=== PATIENT | female | born 1950 | race Caucasian/White ===

== ENCOUNTER 2020-11-14 16:58 | Inpatient (IN) | payer MEDICARE, OTHER, SELFPAY ==
[2020-11-14] VITALS (13 sets, daily range): BP systolic 134–165; BP diastolic 60–88; PULSE 67–91; RESP 10–34; TEMP 36.3–38.5; O2SAT 84–97; BMI 25.4; BMI 23.8
--- NOTE | 2020-11-14 17:09 | EKG12_ITS ---
Test Reason : FEVER Blood Pressure : / mmHG Vent. Rate : 083 BPM Atrial Rate : 083 BPM P-R Int : 144 ms QRS Dur : 088 ms QT Int : 370 ms P-R-T Axes : 065 -63 -01 degrees QTc Int : 434 ms Sinus rhythm with Premature atrial complexes Possible Left atrial enlargement Left anterior fascicular block Nonspecific T wave abnormality Poor R wave progression Abnormal ECG Confirmed by REMI YEUNG, LEONARDO ([id number]), advertising editor DARREN ROBERTO ([id number]) on 11/16/2020 9:43:34 AM Referred By: FRANCISCO Confirmed By:LEONARDO KHALIL MD
--- NOTE | 2020-11-14 17:12 | EX.ED.DYSGE1 ---
HPI History of Present Illness Chief Complaint: Fever Narrative Narrative: Patient presented with 2-week history of weakness, some dyspnea, she had a fever today. She has no nausea vomiting or diarrhea, she has no rash. She does not have neck pain or stiffness. She has no headache or vision changes. She has no dysuria or hematuria. She has no abdominal pain. [facility] PFS Home Medications NK 11/14/20 [History Last Taken Unknown] Allergy/AdvReac Type Severity Reaction Status Date / Time sulfamethoxazole Allergy Angioedema Verified 11/14/20 17:02 [From Bactrim] trimethoprim [From Bactrim] Allergy Angioedema Verified 11/14/20 17:02 Surgical History (Updated 11/14/20 @ 17:21 by Nimo Molina) History of appendectomy Social History Smoking Status: Never smoker ROS ROS ED ROS Narrative Past medical history: None Medications: None Social history: Noncontributory Review of systems: All systems negative except as indicated General: Fever as in HPI. Generalized weakness Eyes: No visual changes ENT: No upper airway congestion, normal voice Neck: No neck pain Cardiovascular: No chest pain Respiratory: Some shortness of breath Gastrointestinal: No abdominal pain, nausea vomiting or diarrhea Genitourinary: No dysuria Musculoskeletal: Denies myalgias no difficulty with ambulation Skin: No rash Neurological: No memory loss, confusion or any focal weakness Psych: No recent behavioral changes Hematologic: No easy bleeding or easy bruising EXAM Physical Exam Narrative Exam Narrative: Physical exam General: Patient appears healthy for her age, she does not appear in significant distress Head: Normocephalic, Atraumatic Eyes: Conjunctiva not pale ENT: Moist mucous membranes Neck: Supple, Nontender, No lymphadenopathy Cardiovascular: Regular rate, Regular rhythm Respiratory: No distress, CTA bilaterally Abdomen: Soft, Nontender, Nondistended Back: Nontender, Normal Inspection. Negative for: CVA tenderness Extremities: Nontender, No edema Skin: Normal color, No rash Neurological: Alert, Normal Strength, Normal Sensation Psychological: Normal affect Const Vital Signs: 11/14/20 16:59 11/14/20 17:21 11/14/20 18:14 Temperature 101.3 F H 99.6 F H 99.8 F H Temperature Source Temporal Oral Oral Pulse Rate 91 82 72 Respiratory Rate 18 26 H 31 H Respiratory Effort Normal Non-Labored Respiratory Pattern Normal Blood Pressure 145/88 H 146/75 H 136/70 H Blood Pressure Mean 107 98 92 Pulse Ox 91 84 97 Oxygen Delivery Method Room Air Room Air Room Air Oxygen Flow Rate (L/min) 2 11/14/20 19:00 Temperature 99.9 F H Temperature Source Oral Pulse Rate 75 Respiratory Rate 26 H Respiratory Effort Respiratory Pattern Blood Pressure 156/78 H Blood Pressure Mean 104 Pulse Ox 96 Oxygen Delivery Method Nasal Cannula Oxygen Flow Rate (L/min) 2 MDM MDM MDM Narrative Medical decision making narrative: Patient signs and symptoms are consistent with Covid however her rapid antigen was negative, I will add a confirmatory test. Her CT is consistent with bilateral infiltrates which is likely Covid pneumonia. Since the first Covid was negative I will start Rocephin and azithromycin. Patient will be admitted to the hospital. Lab Data Labs: Laboratory Results - last 24 hr 11/14/20 11/14/20 11/14/20 17:20 17:20 17:20 WBC RBC Hgb Hct MCV MCH MCHC RDW Std Deviation RDW Coeff of Alex Plt Count MPV Immature Gran % (Auto) Neut % (Auto) Lymph % (Auto) [place] % (Auto) Eos % (Auto) Baso % (Auto) Absolute Neuts (auto) Absolute Lymphs (auto) Nucleated RBC % Fibrinogen 684 H Sodium 138 Potassium 2.8 L Chloride 100 Carbon Dioxide 32.0 Anion Gap 6 BUN 9 Creatinine 0.74 Estim Creat Clear Calc 48.30 Est GFR (MDRD) Af Amer 100 Est GFR (MDRD) Non-Af 82 BUN/Creatinine Ratio 12.2 Glucose 131 H Lactic Acid Calcium 8.5 Total Bilirubin 0.90 AST 36 ALT 25 Alkaline Phosphatase 64 C-React Prot Ext Range 68.20 H Total Protein 7.3 Albumin 3.1 L Globulin 4.2 Albumin/Globulin Ratio 0.7 L Procalcitonin 0.05 11/14/20 11/14/20 17:20 17:20 WBC 3.3 L RBC 5.11 Hgb 14.9 Hct 43.3 MCV 84.7 MCH 29.2 MCHC 34.4 RDW Std Deviation 39.0 RDW Coeff of Alex 12.6 Plt Count 196 MPV 9.7 Immature Gran % (Auto) 0.600 Neut % (Auto) 71.2 H Lymph % (Auto) 18.7 L [place] % (Auto) 9.5 Eos % (Auto) 0.0 Baso % (Auto) 0.0 Absolute Neuts (auto) 2.3 Absolute Lymphs (auto) 0.61 L Nucleated RBC % 0 Fibrinogen Sodium Potassium Chloride Carbon Dioxide Anion Gap BUN Creatinine Estim Creat Clear Calc Est GFR (MDRD) Af Amer Est GFR (MDRD) Non-Af BUN/Creatinine Ratio Glucose Lactic Acid 1.2 Calcium Total Bilirubin AST ALT Alkaline Phosphatase C-React Prot Ext Range Total Protein Albumin Globulin Albumin/Globulin Ratio Procalcitonin Radiography Diagnostic Testing: Radiology Impression Chest X-Ray 11/14/20 17:42 IMPRESSION: Bilateral pneumonia. Electronically Signed: Flo Lucia MD at 18:17 EDT Tel , Service support , Chest CTA 11/14/20 18:32 IMPRESSION: Negative CTA Chest. Bilateral airspace disease consistent with infection including atypical or viral pneumonia. Individualized dose optimization techniques were used for this CT. at 1929 Reported and signed by: Dev Delgado MD Electronically Signed: Dev Delgado MD at 19:28 EDT Tel , Service support , Discharge Plan Triage Chief Complaint: Fever ED Provider: Cornelio Malone Dx/Rx/DC Orders Clinical Impression: Hypoxia, Pneumonia Prescriptions: No Action NK RF: 0 Primary Care Provider: Care Physician,No Primary Referrals: Care Physician,No Primary [Primary Care Provider] - Disposition Disposition: Acute Care Hospital [facility]
[2020-11-14 17:42] LABS: Absolute Lymphocyte Count 0.61 X10^3/uL (0.83-4.51); Absolute Neutrophil Count 2.3 X10^3/uL (2.0-7.7); Hematocrit 43.3 % (37-47); Hemoglobin 14.9 g/dL (12.0-15.0); Lymphocyte # 0.61 X10^3/ul (0.83-4.51); Lymphocyte % 18.7 % (19-41); Mean Corp Hgb Conc 34.4 g/dL (32-36); Mean Corpuscular Hgb 29.2 pg (27.0-32.0); Mean Corpuscular Volume 84.7 fL (81-99); Mean Platelet Vol. 9.7 fl (6.2-12.0); Monocyte# 0.31 X10^3/uL; Monocyte% 9.5 % (0-10); NRBC Flagged by Analyzer 0 % (0-5); Neutrophil # 2.32 X10^3/uL (2.7-7.7); Neutrophil % 71.2 % (47-70); Platelet Count 196 K/mm3 (150-450); RBC Distribution Width CV 12.6 % (11.6-14.6); Red Blood Count 5.11 M/mm3 (4.2-5.4); White Blood Count 3.3 K/mm3 (4.4-11.0)
--- NOTE | 2020-11-14 17:42 | RAD_ITS ---
STUDY: X-RAY CHEST REASON FOR EXAM: Female, 70 years old. cough, sob, fatigue, fever, states unable to do ADLS x 1 week. TECHNIQUE: Single AP portable view of the chest. COMPARISON: None. FINDINGS: Patchy alveolar opacities in both lungs consistent with bilateral pneumonia. There is no demonstrated pleural abnormality. Normal size heart. Normal mediastinum and grant. Normal visualized pulmonary arteries. Normal visualized aortic arch and descending thoracic aorta. Normal visualized thoracic spine. Normal visualized ribs, clavicles, and shoulders. There is no demonstrated abnormality of the visualized soft tissue structures of the upper abdomen. RAD/Chest 1 View (Portable) IMPRESSION: Bilateral pneumonia. Electronically Signed: Flo Lucia MD at 18:17 EDT Tel , Service support ,
[2020-11-14 17:54] LABS: Fibrinogen 684 mg/dl (203-444)
[2020-11-14 18:14] LABS: Lactic Acid 1.2 mmol/L (0.4-1.9)
[2020-11-14 18:15] LABS: ALB/GLOB Ratio 0.7 RATIO (0.9-2.4); AST(SGOT) 36 U/L (15-37); Alanine Aminotransfer ALT/SGPT 25 U/L (13-56); Albumin, Serum 3.1 g/dL (3.2-5.0); Alkaline Phosphatase 64 U/L (45-117); Anion Gap 6 (5-15); BUN 9 mg/dL (7-18); BUN/Creat Ratio 12.2 RATIO (10-20); Calcium,Total 8.5 mg/dL (8.5-10.1); Chloride 100 mmol/L (98-107); Creatinine, Serum 0.74 mg/dL (0.55-1.02); EST Glomerular Filtration Rate 82 mL/min (>60); Est Glom Filt Rate - Afr Amer 100 mL/min (>60); Globulin 4.2 g/dL (2.2-4.2); Glucose 131 mg/dL (74-106); Potassium 2.8 mmol/L (3.5-5.1); Protein, Total 7.3 g/dL (6.4-8.2); Sodium Level 138 mmol/L (136-145)
[2020-11-14 18:20] LABS: Procalcitonin 0.05 ng/mL (0.00-0.09)
--- NOTE | 2020-11-14 18:32 | CT_ITS ---
HISTORY: Cough, dyspnea and fever EXAMINATION: CTA Chest WO/W Contrast Injection TECHNIQUE: Helically acquired images were obtained of the chest following IV contrast as per pulmonary angiogram protocol with 3D reconstructions. A radiation dose optimization technique was used for this scan. IV Contrast dosage and agent: IV 100mL [id number] COMPARISON: None FINDINGS: LUNGS, PLEURA AND LARGE AIRWAYS: Patchy groundglass opacities in the bilateral upper, right middle and bilateral lower lobes with scattered areas of consolidation. No pleural effusion. No pneumothorax THYROID: No thyroid lesions. PULMONARY ARTERIES: Normal in caliber. No pulmonary embolism. AORTA AND GREAT VESSELS: No aneurysm or dissection. HEART AND PERICARDIUM: Heart size is normal. No pericardial effusion. MEDIASTINUM AND ROLAN: Right hilar adenopathy. Esophagus is unremarkable. No hiatal hernia. UPPER ABDOMEN: No acute pathology. BONES: No acute or aggressive abnormality. CT/CTA Chest W/WO Contrast IMPRESSION: Negative CTA Chest. Bilateral airspace disease consistent with infection including atypical or viral pneumonia. Individualized dose optimization techniques were used for this CT. at 1929 Reported and signed by: Dev Delgado MD Electronically Signed: Dev Delgado MD at 19:28 EDT Tel , Service support ,
[2020-11-14] MEDS: Ceftriaxone 1 GM/50 ML BAG IV (20:10)
--- NOTE | 2020-11-14 20:10 | PCM.HP.STD ---
HPI - General General Date of Admission: 11/14/20 HPI Narrative KIM PRINGLE, is a 70 F who presents with a chief complaint of shortness of breath. Onset of symptoms began 2 weeks ago and has become worse since that time. She and her are both not vaccinated to SARS?2 at this time. She is short of breath, requiring oxygen to maintain her pulse oxygenation greater than 90%. Chest x-ray reveals patchy infiltrate and CRP is markedly elevated at 68 with an increased level of fibrinogen. Rapid Covid 19 testing is negative ,however, her clinical picture is suspect. The patient will be admitted and treated as a Covid 19 patient until further testing confirms or denies that diagnosis. She will also be at treated with broad-spectrum antibiotics. [facility] Home Medications NK 11/14/20 [History Last Taken Unknown] Allergy/AdvReac Type Severity Reaction Status Date / Time sulfamethoxazole Allergy Angioedema Verified 11/14/20 17:02 [From Bactrim] trimethoprim [From Bactrim] Allergy Angioedema Verified 11/14/20 17:02 Surgical History (Updated 11/14/20 @ 17:21 by Nimo Molina) History of appendectomy Social History Smoking Status: Never smoker ROS Constitutional Constitutional: Reports fever(s) and weakness ENT HEENT: Denies abnormal hearing Cardiovascular Cardiovascular: Denies chest pain Respiratory/Chest Respiratory/Chest: Reports cough and shortness of breath at rest Gastrointestinal Gastrointestinal: Denies abdominal pain Genitourinary Genitourinary: Denies dysuria Musculoskeletal Musculoskeletal: Denies back pain Integumentary Integumentary: Denies dry skin Neurologic Neurologic: Denies abnormal gait Psychiatric Psychiatric: Denies anxiety Endocrine Endocrinology: Denies change in body appearance Vital Signs Vital Signs Vital Signs: 11/14/20 16:59 11/14/20 17:21 11/14/20 18:14 Temperature 101.3 F H 99.6 F H 99.8 F H Temperature Source Temporal Oral Oral Pulse Rate 91 82 72 Respiratory Rate 18 26 H 31 H Respiratory Effort Normal Non-Labored Respiratory Pattern Normal Blood Pressure 145/88 H 146/75 H 136/70 H Blood Pressure Mean 107 98 92 Pulse Ox 91 84 97 Oxygen Delivery Method Room Air Room Air Room Air Oxygen Flow Rate (L/min) 2 11/14/20 19:00 Temperature 99.9 F H Temperature Source Oral Pulse Rate 75 Respiratory Rate 26 H Respiratory Effort Respiratory Pattern Blood Pressure 156/78 H Blood Pressure Mean 104 Pulse Ox 96 Oxygen Delivery Method Nasal Cannula Oxygen Flow Rate (L/min) 2 Weight Weight: 158 lb Body Mass Index (BMI) 25.4 Physical Exam Const alert and oriented x3 General Appearance: cooperative HEENT normocephalic and head/scalp atraumatic Eyes PERRL and EOMs intact bilaterally Neck supple Lymph Lymphatic: no lymphadenopathy noted Resp Auscultation: diminished lung sounds Cardio regular rhythm, S1 normal heart sound, S2 normal heart sound, no murmurs, no rub and no gallops GI soft to palpation and non-tender Extremity no clubbing, cyanosis or edema Skin Rashes: no rashes Neuro CN's II-XII intact bilaterally Psych affect normal Appearance: appropriate Lab / Micro Data Result Diagrams: 11/14/20 17:20 11/14/20 17:20 Labs: Laboratory Results - last 24 hr 11/14/20 11/14/20 11/14/20 17:20 17:20 17:20 WBC RBC Hgb Hct MCV MCH MCHC RDW Std Deviation RDW Coeff of Alex Plt Count MPV Immature Gran % (Auto) Neut % (Auto) Lymph % (Auto) [place] % (Auto) Eos % (Auto) Baso % (Auto) Absolute Neuts (auto) Absolute Lymphs (auto) Nucleated RBC % Fibrinogen 684 H Sodium 138 Potassium 2.8 L Chloride 100 Carbon Dioxide 32.0 Anion Gap 6 BUN 9 Creatinine 0.74 Estim Creat Clear Calc 48.30 Est GFR (MDRD) Af Amer 100 Est GFR (MDRD) Non-Af 82 BUN/Creatinine Ratio 12.2 Glucose 131 H Lactic Acid Calcium 8.5 Total Bilirubin 0.90 AST 36 ALT 25 Alkaline Phosphatase 64 C-React Prot Ext Range 68.20 H Total Protein 7.3 Albumin 3.1 L Globulin 4.2 Albumin/Globulin Ratio 0.7 L Procalcitonin 0.05 11/14/20 11/14/20 17:20 17:20 WBC 3.3 L RBC 5.11 Hgb 14.9 Hct 43.3 MCV 84.7 MCH 29.2 MCHC 34.4 RDW Std Deviation 39.0 RDW Coeff of Alex 12.6 Plt Count 196 MPV 9.7 Immature Gran % (Auto) 0.600 Neut % (Auto) 71.2 H Lymph % (Auto) 18.7 L [place] % (Auto) 9.5 Eos % (Auto) 0.0 Baso % (Auto) 0.0 Absolute Neuts (auto) 2.3 Absolute Lymphs (auto) 0.61 L Nucleated RBC % 0 Fibrinogen Sodium Potassium Chloride Carbon Dioxide Anion Gap BUN Creatinine Estim Creat Clear Calc Est GFR (MDRD) Af Amer Est GFR (MDRD) Non-Af BUN/Creatinine Ratio Glucose Lactic Acid 1.2 Calcium Total Bilirubin AST ALT Alkaline Phosphatase C-React Prot Ext Range Total Protein Albumin Globulin Albumin/Globulin Ratio Procalcitonin Micro: Microbiology 11/14/20 17:17 SARS-CoV-2 Antigen (Rapid) - Final Interface Orders Radiology Impression Chest X-Ray 11/14/20 17:42 IMPRESSION: Bilateral pneumonia. Electronically Signed: Flo Lucia MD at 18:17 EDT Tel , Service support , Chest CTA 11/14/20 18:32 IMPRESSION: Negative CTA Chest. Bilateral airspace disease consistent with infection including atypical or viral pneumonia. Individualized dose optimization techniques were used for this CT. at 1929 Reported and signed by: Dev Delgado MD Electronically Signed: Dev Delgado MD at 19:28 EDT Tel , Service support , Assessment & Plan Assessment/Plan (1) Hypoxia: (2) Pneumonia: PLAN: 1. Acute shortness of breath/pneumonia?admit to COVID-19 floor for isolation until further testing can be done. We will treat patient with oxygen support and steroids. She will be also covered with Rocephin and azithromycin in the emergency room, decision to continue further antibiotic therapy can be made tomorrow after further COVID-19 testing has returned. 2. DVT prophylaxis?low molecular weight heparin Strongly encouraged patient to get COVID-19 vaccine 90 days after discharge from hospital Visit Charges Inpatient E&M: 45086 Init Hosp L2
[2020-11-14] MEDS: Potassium Chloride Oral Tablet 20 MEQ 60 MEQ PO (22:03)
[2020-11-15] VITALS (15 sets, daily range): BP systolic 124–160; BP diastolic 54–95; PULSE 59–84; RESP 16–34; TEMP 36.1–37.2; O2SAT 92–96
[2020-11-15 05:08] LABS: Absolute Lymphocyte Count 0.61 X10^3/uL (0.83-4.51); Absolute Neutrophil Count 2.1 X10^3/uL (2.0-7.7); Eosinophil# 0.01 X10^3/uL; Eosinophils% 0.3 % (0-5); Hematocrit 39.4 % (37-47); Hemoglobin 13.3 g/dL (12.0-15.0); Lymphocyte # 0.61 X10^3/ul (0.83-4.51); Lymphocyte % 20.2 % (19-41); Mean Corp Hgb Conc 33.8 g/dL (32-36); Mean Corpuscular Hgb 28.7 pg (27.0-32.0); Mean Corpuscular Volume 84.9 fL (81-99); Mean Platelet Vol. 9.9 fl (6.2-12.0); Monocyte# 0.32 X10^3/uL; Monocyte% 10.6 % (0-10); NRBC Flagged by Analyzer 0 % (0-5); Neutrophil # 2.07 X10^3/uL (2.7-7.7); Neutrophil % 68.6 % (47-70); POSITIVE MORPHOLOGY YES; Platelet Count 190 K/mm3 (150-450); RBC Distribution Width CV 12.6 % (11.6-14.6); Red Blood Count 4.64 M/mm3 (4.2-5.4)
[2020-11-15 05:12] LABS: Differential Indicated SCAN CRITERIA MET
[2020-11-15 05:22] LABS: Anion Gap 5 (5-15); BUN 9 mg/dL (7-18); BUN/Creat Ratio 17.8 RATIO (10-20); Calcium,Total 7.9 mg/dL (8.5-10.1); Chloride 104 mmol/L (98-107); Creatinine, Serum 0.51 mg/dL (0.55-1.02); EST Glomerular Filtration Rate 127 mL/min (>60); Est Glom Filt Rate - Afr Amer 154 mL/min (>60); Glucose 98 mg/dL (74-106); Potassium 3.6 mmol/L (3.5-5.1); Sodium Level 142 mmol/L (136-145)
[2020-11-15 05:43] LABS: Differential Comment SCANNED
[2020-11-15 05:45] LABS: Atypical Lymphocyte RARE %
[2020-11-15 08:09] LABS: D-Dimer Quantitative (DVT/PE) 0.98 FEU/ug/m (0.27-0.49)
[2020-11-15] MEDS: dexAMETHasone 2 MG TABLET 6 MG PO (09:23)
[2020-11-15] MEDS: Enoxaparin 40 MG/0.4 ML Syringe SC (09:23)
--- NOTE | 2020-11-15 10:18 | CASEMGMT ---
RN PANKAJ Assessment: TC to pt for initial transition planning/care coordination assessment due to COVID 19. RN PANKAJ introduced self and role at [facility], pt voices understanding and consents to assessment. Pt seems A/O x4 and answers all questions appropriately at this time. Care providers, pharmacy, and demographics verified/updated. Admitting Dx: suspected COVID 19 PCP: Pt currently does not have a PCP. She states her PCP retired, . She states she is planning on finding another one but wants a female. CM offered to provide MD list. Pt agreeable. CM gave pt nurse Silva the 2020 Healthcare Provider Directory and underlined the female physicians for patient. Specialists: Pt denies having any specialists. Preferred [facility]: [facility] Insurance: [employer] Prescription Benefit: no LW/HPOA: Pt states she does have a LW/DPOA. States her is DPOA, Tomas Lerma. She is aware that it is not on file at [facility] and she may bring in at any time to be scanned to the chart. LNOK: Tomasbobby Lerma, Living Arrangements: Pt lives with in a duplex with her son and daughter in law on the other side. Pt states she and her use the main floor only. Pt is I in ADL's and denies concerns at home. Transportation: Pt drives self and denies issues with transportation. DME/HHC/SNF: Pt denies having any DME in the home, previous HHC or SNF stays. Pt aware that CM will give nurse a list of local DME providers in case she would need O2 on dc. She is aware that her insurance covers all of them and CM will call her back to see who her preferred provider is. List given to Ricardo the nurse. Pt states no concerns with going home at time of dc. Pt states no further concerns/needs. CM to follow. Advised pt to ask CM if any further question/concerns/needs arise, voices understanding. Pt Goal: Home Plan: Home with family support.
--- NOTE | 2020-11-15 11:27 | PN.HOSP_ITS ---
Subjective Subjective breathing well on oxygen. Has been ill for 2 weeks. Her grandchildren were ill with unspecified illness prior to her onset. Objective Data Objective Data Vital Signs: Vital Signs Temp Pulse Resp BP Pulse Ox 37.2 C 77 22 H 140/68 H 92 11/15/20 10:00 11/15/20 10:00 11/15/20 10:00 11/15/20 10:00 11/15/20 10:00 Oxygen Flow Rate (L/min) 2 Oxygen Delivery Method Nasal Cannula Weight: 67 kg Body Mass Index (BMI) 23.8 Intake & Output: Intake and Output for Last 24 Hours 11/13/20 11/14/20 11/15/20 23:59 23:59 23:59 Intake Total 305 / 545 240 / 240 Balance 305 / 545 240 / 240 Lab / Micro Data Attestation: I reviewed the patient's lab results. Result Diagrams: 11/15/20 05:05 11/15/20 05:05 Labs: Laboratory Results - last 24 hr 11/14/20 11/14/20 11/14/20 17:20 17:20 17:20 WBC RBC Hgb Hct MCV MCH MCHC RDW Std Deviation RDW Coeff of Alex Plt Count MPV Immature Gran % (Auto) Neut % (Auto) Lymph % (Auto) [place] % (Auto) Eos % (Auto) Baso % (Auto) Absolute Neuts (auto) Absolute Lymphs (auto) Nucleated RBC % Differential Comment Atypical Lymphocytes Fibrinogen 684 H D-Dimer Quant (PE/DVT) Sodium 138 Potassium 2.8 L Chloride 100 Carbon Dioxide 32.0 Anion Gap 6 BUN 9 Creatinine 0.74 Estim Creat Clear Calc 48.30 Est GFR (MDRD) Af Amer 100 Est GFR (MDRD) Non-Af 82 BUN/Creatinine Ratio 12.2 Glucose 131 H Lactic Acid Calcium 8.5 Total Bilirubin 0.90 AST 36 ALT 25 Alkaline Phosphatase 64 C-React Prot Ext Range 68.20 H Total Protein 7.3 Albumin 3.1 L Globulin 4.2 Albumin/Globulin Ratio 0.7 L Procalcitonin 0.05 COVID-19 ([facility]) 11/14/20 11/14/20 11/14/20 17:20 17:20 20:01 WBC 3.3 L RBC 5.11 Hgb 14.9 Hct 43.3 MCV 84.7 MCH 29.2 MCHC 34.4 RDW Std Deviation 39.0 RDW Coeff of Alex 12.6 Plt Count 196 MPV 9.7 Immature Gran % (Auto) 0.600 Neut % (Auto) 71.2 H Lymph % (Auto) 18.7 L [place] % (Auto) 9.5 Eos % (Auto) 0.0 Baso % (Auto) 0.0 Absolute Neuts (auto) 2.3 Absolute Lymphs (auto) 0.61 L Nucleated RBC % 0 Differential Comment Atypical Lymphocytes Fibrinogen D-Dimer Quant (PE/DVT) Sodium Potassium Chloride Carbon Dioxide Anion Gap BUN Creatinine Estim Creat Clear Calc Est GFR (MDRD) Af Amer Est GFR (MDRD) Non-Af BUN/Creatinine Ratio Glucose Lactic Acid 1.2 Calcium Total Bilirubin AST ALT Alkaline Phosphatase C-React Prot Ext Range Total Protein Albumin Globulin Albumin/Globulin Ratio Procalcitonin COVID-19 ([facility]) Detected 11/15/20 11/15/20 11/15/20 05:05 05:05 05:05 WBC 3.0 L RBC 4.64 Hgb 13.3 Hct 39.4 MCV 84.9 MCH 28.7 MCHC 33.8 RDW Std Deviation 39.0 RDW Coeff of Alex 12.6 Plt Count 190 MPV 9.9 Immature Gran % (Auto) 0.300 Neut % (Auto) 68.6 Lymph % (Auto) 20.2 [place] % (Auto) 10.6 H Eos % (Auto) 0.3 Baso % (Auto) 0.0 Absolute Neuts (auto) 2.1 Absolute Lymphs (auto) 0.61 L Nucleated RBC % 0 Differential Comment SCANNED Atypical Lymphocytes RARE Fibrinogen D-Dimer Quant (PE/DVT) 0.98 H* Sodium 142 Potassium 3.6 Chloride 104 Carbon Dioxide 33.0 H Anion Gap 5 BUN 9 Creatinine 0.51 L Estim Creat Clear Calc 48.30 Est GFR (MDRD) Af Amer 154 Est GFR (MDRD) Non-Af 127 BUN/Creatinine Ratio 17.8 Glucose 98 Lactic Acid Calcium 7.9 L Total Bilirubin AST ALT Alkaline Phosphatase C-React Prot Ext Range Total Protein Albumin Globulin Albumin/Globulin Ratio Procalcitonin COVID-19 ([facility]) Micro: Microbiology 11/14/20 17:17 Interface Orders SARS-CoV-2 Antigen (Rapid) - Final Radiography Diagnostic Testing: Radiology Impression Chest X-Ray 11/14/20 17:42 IMPRESSION: Bilateral pneumonia. Electronically Signed: Flo Lucia MD at 18:17 EDT Tel , Service support , Chest CTA 11/14/20 18:32 IMPRESSION: Negative CTA Chest. Bilateral airspace disease consistent with infection including atypical or viral pneumonia. Individualized dose optimization techniques were used for this CT. at 1929 Reported and signed by: Dev Delgado MD Electronically Signed: Dev Delgado MD at 19:28 EDT Tel , Service support , Physical Exam Const alert and oriented x3 Exam Limitations: no limitations Resp normal respiratory effort and clear to auscultation bilaterally Cardio regular rate, regular rhythm, S1 normal heart sound and S2 normal heart sound GI normal to inspection, nondistended, normoactive bowel sounds, non-tender and non-distended Extremity normal to inspection Assessment & Plan Assessment/Plan (1) COVID-19: (2) Hypoxia: PLAN: 1. Acute COVID-19 pneumonia * Date of onset was roughly 2 weeks ago. Likely contracted from her grandchildren who were sick prior to that. * Patient out of the window for remdesivir * Continue with dexamethasone * Plan is to monitor the patient overnight if she does fairly well then will look at potential discharge 26. Patient will require an amatory pulse ox prior to discharge. * Strongly advised patient to get the COVID-19 vaccination after she is done with quarantine which would be for another week. * Also advised that her family members including her who is at home as well as additional family members who live close by be vaccinated. 2. Acute hypoxic respiratory insufficiency * Secondary to Covid * Ambulatory pulse ox prior to discharge. 3. On VTE prophylaxis with enoxaparin. Improve VTE score is only 1%. Therefore, would not require VTE prophylaxis upon discharge. Visit Charges Inpatient E&M: 57066 Subs Hosp L2
[2020-11-16] VITALS (9 sets, daily range): BP systolic 150–164; BP diastolic 61–90; PULSE 54–83; RESP 20–29; TEMP 36.3–36.7; O2SAT 87–96
[2020-11-16 04:46] LABS: Absolute Lymphocyte Count 0.63 X10^3/uL (0.83-4.51); Absolute Neutrophil Count 1.9 X10^3/uL (2.0-7.7); Basophil# 0.01 X10^3/uL; Basophil% 0.3 % (0-1); Eosinophil# 0.01 X10^3/uL; Eosinophils% 0.3 % (0-5); Hematocrit 42.4 % (37-47); Hemoglobin 13.7 g/dL (12.0-15.0); Lymphocyte # 0.63 X10^3/ul (0.83-4.51); Lymphocyte % 21.7 % (19-41); Mean Corp Hgb Conc 32.3 g/dL (32-36); Mean Corpuscular Hgb 28.2 pg (27.0-32.0); Mean Corpuscular Volume 87.4 fL (81-99); Mean Platelet Vol. 9.9 fl (6.2-12.0); Monocyte# 0.34 X10^3/uL; Monocyte% 11.7 % (0-10); NRBC Flagged by Analyzer 0 % (0-5); Neutrophil # 1.88 X10^3/uL (2.7-7.7); POSITIVE COUNT YES; POSITIVE MORPHOLOGY YES; Platelet Count 223 K/mm3 (150-450); RBC Distribution Width CV 12.3 % (11.6-14.6); RBC Distribution Width SD 39.7 fl (35.1-43.9); Red Blood Count 4.85 M/mm3 (4.2-5.4); White Blood Count 2.9 K/mm3 (4.4-11.0)
[2020-11-16 04:57] LABS: Differential Indicated SCAN CRITERIA MET
[2020-11-16 04:58] LABS: Anion Gap 8 (5-15); BUN 18 mg/dL (7-18); BUN/Creat Ratio 29.4 RATIO (10-20); Calcium,Total 8.6 mg/dL (8.5-10.1); Chloride 105 mmol/L (98-107); Creatinine, Serum 0.61 mg/dL (0.55-1.02); EST Glomerular Filtration Rate 102 mL/min (>60); Est Glom Filt Rate - Afr Amer 124 mL/min (>60); Glucose 128 mg/dL (74-106); Potassium 3.3 mmol/L (3.5-5.1); Sodium Level 143 mmol/L (136-145)
[2020-11-16 05:19] LABS: Differential Comment SCANNED
[2020-11-16 05:22] LABS: Atypical Lymphocyte 1+ %
[2020-11-16] MEDS: Potassium Chloride Oral Tablet 20 MEQ 40 MEQ PO (09:13)
[2020-11-16] MEDS: Enoxaparin 40 MG/0.4 ML Syringe SC (09:14)
[2020-11-16] MEDS: dexAMETHasone 2 MG TABLET 6 MG PO (09:14)
--- NOTE | 2020-11-16 10:28 | CASEMGMT ---
Addendum entered by Nayeli Franks 11/16/20 11:51: TC to [facility], spoke with Lory referral received. O2 tank to be sent over shortly. Original Note: RN PANKAJ made aware that pt will need home O2. TC to pt room. She states she received the DME list and chose [facility] for her provider. [place] [facility] [place] Pt aware O2 will be delivered prior to leaving hospital and concentrator will be delivered to her home once she is home. Pt also received the list of physicians and was appreciative of this. Pt denies further needs.
--- NOTE | 2020-11-16 10:36 | PCM.DC ---
Discharge Instructions Diet Discharge Diet: No restrictions Activity Discharge Activity: Return to Normal Activity Dressing / Incision Call your doctor if you observe: Fever of 101 or Higher and Shortness of breath Follow Up Care Test Results: Test results from this visit will be discussed in further detail at your follow-up appointment, if applicable. Discharge Plan Admission Admit Date/Time: 11/14/20 20:23 Attending Provider: Yan Singh Primary Care Provider: Care Physician,No Primary Instructions Additional Instructions / Restrictions: Self isolate for at least 20 days since symptoms began or the first postive COVID-19 test AND at least one day (24 hours) have passed since resolution of fever without the use of fever-reducing agents AND improvement of symptoms (e.g., cough, shortness of breath) When around people in the same room, wear a face mask. Individuals also in the room should wear a mask. If possible, use a different bathroom and bedroom. Perform adequate hand hygiene. Avoid sharing dishes, glasses, etc. You will require oxygen with activity. Discharge Orders/Prescriptions Prescriptions: New dexamethasone 2 mg Tablet 6 mg PO DAILY@0800 8 Days Qty: 24 RF: 0 Referrals / Follow Up: Care Physician,No Primary [Primary Care Provider] - Disposition Disposition (needs filled in before D/C Order can be placed): Home, self care
--- NOTE | 2020-11-16 10:41 | PCM.DC.SUM ---
Providers Date of Admission: 11/14/20 Primary Care Physician: No Primary Care Phys Reason For Visit: SUSPECTED COVID 19 Diagnosis Discharge Diagnosis (1) COVID-19: Status: Acute Code(s): U07.1 - COVID-19 (2) Hypoxia: Status: Acute Code(s): R09.02 - Hypoxemia Medications at Discharge Home Medications dexamethasone 6 mg PO DAILY@0800 8 Days #24 tab 11/16/20 Hospital Course Operations None Procedures None Summary of Care Provided Minutes Spent on Discharge: 32 Hospital Course: Presents with shortness of breath. Patient been sick for approximately 2 weeks. She was out of the window for remdesivir. Continue dexamethasone for total of 10 days. She ambulated today and pulse ox dropped down to 86%. Therefore, she will require 2 liters of oxygen with activity for the time-being. IMPROVE VTE score 1%, therefore, she will not require VTE prophylaxis upon discharge. Physical Exam Const alert General Appearance: cooperative HEENT normocephalic Resp normal respiratory effort Cardio regular rate, regular rhythm, S1 normal heart sound and S2 normal heart sound GI normal to inspection, nondistended, normoactive bowel sounds, non-tender and non-distended ABG / Lab / Microbiology Data Attestation: I reviewed the patient's lab results. Result Diagrams: 11/16/20 04:30 11/16/20 04:30 Laboratory: Laboratory Results - last 24 hr 11/16/20 11/16/20 04:30 04:30 WBC 2.9 L RBC 4.85 Hgb 13.7 Hct 42.4 MCV 87.4 MCH 28.2 MCHC 32.3 RDW Std Deviation 39.7 RDW Coeff of Alex 12.3 Plt Count 223 MPV 9.9 Immature Gran % (Auto) 1.000 H Neut % (Auto) 65.0 Lymph % (Auto) 21.7 [place] % (Auto) 11.7 H Eos % (Auto) 0.3 Baso % (Auto) 0.3 Absolute Neuts (auto) 1.9 L Absolute Lymphs (auto) 0.63 L Nucleated RBC % 0 Differential Comment SCANNED Atypical Lymphocytes 1+ Sodium 143 Potassium 3.3 L Chloride 105 Carbon Dioxide 30.0 Anion Gap 8 BUN 18 Creatinine 0.61 Estim Creat Clear Calc 48.30 Est GFR (MDRD) Af Amer 124 Est GFR (MDRD) Non-Af 102 BUN/Creatinine Ratio 29.4 H Glucose 128 H Calcium 8.6 Microbiology: Microbiology 11/14/20 17:17 Interface Orders SARS-CoV-2 Antigen (Rapid) - Final D/C Instructions Discharge Diet: No restrictions Discharge Activity: Return to Normal Activity Call your doctor if you observe: Fever of 101 or Higher and Shortness of breath Meaningful Use Info Meaningful Use Diagnoses (Choose all that apply): None applicable Discharge Plan Admission Admit Date/Time: 11/14/20 20:23 Attending Provider: Yan Singh Primary Care Provider: Care Physician,No Primary Instructions Additional Instructions / Restrictions: Self isolate for at least 20 days since symptoms began or the first postive COVID-19 test AND at least one day (24 hours) have passed since resolution of fever without the use of fever-reducing agents AND improvement of symptoms (e.g., cough, shortness of breath) When around people in the same room, wear a face mask. Individuals also in the room should wear a mask. If possible, use a different bathroom and bedroom. Perform adequate hand hygiene. Avoid sharing dishes, glasses, etc. You will require oxygen with activity. Discharge Orders/Prescriptions Prescriptions: New dexamethasone 2 mg Tablet 6 mg PO DAILY@0800 8 Days Qty: 24 RF: 0 Referrals / Follow Up: Care Physician,No Primary [Primary Care Provider] - Disposition Disposition (needs filled in before D/C Order can be placed): Home, self care Visit Charges Inpatient E&M: 94139 Disch Hosp
--- NOTE | 2020-11-17 09:56 | CASEMGMT ---
ROSELYN LIRA Discharge Follow-Up Phone Call. [place]: 5 Strata: 1 Discharge Date: 11/16/20 Adm Dx: Suspected COVID-19 Call to pt to inquire about how she has been doing since being discharged from the hospital. Pt states, It's going well. My breathing is good. She states she did get oxygen set up at home from [employer] yesterday and is using it mostly when getting up/with activity. 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 Inquired if pt has looked over the PCP list provided to her while @ [facility] to get established w/a new PCP. Pt states she has not done this yet, but plans to look it over and discuss it with her . She denies having any questions/concerns/needs. Jackelyn ANTUNEZ RN, CM
== END 2020-11-16 15:15 | disposition home or self-care (01) | DRG 177 ==
LOC: ED 19:59 → ICU 20:30
PROVIDERS: Admitting Provider Family Medicine; Emergency Provider Emergency Medicine
DX: U07.1 COVID-19 (principal); J12.82 Pneumonia due to coronavirus disease 2019; R09.02 Hypoxemia
CPT/HCPCS: 71045; 71275; 80048; 80053; 83605; 84145; 85025; 85379; 85384; 86140; 87040; 87426; 87635; 93005; 99285; J7050; Q9967; A4216; U0002

== ENCOUNTER → 2023-09-03 | Outpatient (CLI) | payer MEDICARE, OTHER, SELFPAY ==
[2023-09-03 17:51] LABS: Bacteria 0 SEEN /hpf (None Seen); Mucous, Urine 0 SEEN /hpf (<or=2+); Red Blood Cells-Urine 0 SEEN /hpf (0-5); Squamous Epithelial Cells - UA 0 SEEN /hpf (5-10)
[2023-09-03 18:42] LABS: Color, Urine Yellow (Yellow); Glucose, Dipstick Normal (Normal); Ketone-Dipstick 5 mg/dl (Negative); Leukocyte Esterase-Dipstick 500 /ul (Negative); Nitrite-Dipstick Negative (Negative); Occult Blood-Urine 25 /ul (Negative); Protein-Dipstick 15 mg/dl (Negative); Urine Bilirubin Dipstick Negative (Negative); Urine Clarity Clear (Clear); Urine Urobilinogen Normal (Normal); Urine pH 6.5 (5.0 - 8.0)
[2023-09-03 18:59] LABS: Calcium Oxalate Crystals Ur RARE /hpf (<or=2+); White Blood Cells 10-25 SEEN /hpf (0-5)
== END | disposition home or self-care (01) ==
LOC: LABSPEC 15:43
PROVIDERS: Referring Provider Physician Assistant; Visit Provider Physician Assistant
DX: R30.0 Dysuria (principal)
CPT/HCPCS: 81001; 87086; 87088; 87186

== ENCOUNTER 2023-09-06 12:34 | Emergency (ER) | payer MEDICARE, OTHER, SELFPAY ==
[2023-09-06] VITALS (41 sets, daily range): BP systolic 112–130; BP diastolic 50–86; PULSE 64–111; RESP 18–38; TEMP 36.1–36.7; O2SAT 90–99; BMI 22.3
[2023-09-06 13:24] LABS: Absolute Lymphocyte Count 0.99 X10^3/uL (0.83-4.51); Absolute Neutrophil Count 8.1 X10^3/uL (2.0-7.7); Basophil# 0.06 X10^3/uL; Basophil% 0.6 % (0-1); Eosinophil# 0.25 X10^3/uL; Eosinophils% 2.5 % (0-5); Hematocrit 31.5 % (37-47); Hemoglobin 10.6 g/dL (12.0-15.0); Lymphocyte # 0.99 X10^3/ul (0.83-4.51); Lymphocyte % 9.8 % (19-41); Mean Corp Hgb Conc 33.7 g/dL (32-36); Mean Corpuscular Hgb 29.6 pg (27.0-32.0); Mean Platelet Vol. 9.6 fl (6.2-12.0); Monocyte# 0.62 X10^3/uL; Monocyte% 6.1 % (0-10); NRBC Flagged by Analyzer 0 % (0-5); Neutrophil # 8.06 X10^3/uL (2.7-7.7); Neutrophil % 79.7 % (47-70); POSITIVE MORPHOLOGY YES; Platelet Count 135 K/mm3 (150-450); RBC Distribution Width CV 13.9 % (11.6-14.6); RBC Distribution Width SD 44.1 fl (35.1-43.9); Red Blood Count 3.58 M/mm3 (4.2-5.4); White Blood Count 10.1 K/mm3 (4.4-11.0)
[2023-09-06 13:26] LABS: Differential Indicated SCAN CRITERIA MET
[2023-09-06 13:37] LABS: Anion Gap 3 (5-15); BUN 21 mg/dL (7-18); BUN/Creat Ratio 21.2 RATIO (10-20); Calcium,Total 10.4 mg/dL (8.5-10.1); Chloride 105 mmol/L (98-107); Creatinine, Serum 0.99 mg/dL (0.55-1.02); EST Glomerular Filtration Rate 58 mL/min (>60); Est Glom Filt Rate - Afr Amer 71 mL/min (>60); Estimated Creatinine Clearance 46.67 ml/min; Glucose 126 mg/dL (74-106); Potassium 3.8 mmol/L (3.5-5.1); Sodium Level 138 mmol/L (136-145); Troponin-I HS 6 pg/mL (3.0-54.0)
[2023-09-06 14:03] LABS: Reactive Lymphocyte RARE
--- NOTE | 2023-09-06 14:18 | RAD_ITS ---
STUDY: X-RAY CHEST REASON FOR EXAM: Female, 73 years old. Weakness TECHNIQUE: Single AP portable view of the chest. COMPARISON: Comparison is made with prior study November 14, 2020. FINDINGS: EKG electrodes are seen. The lungs are clear and expanded. There is no demonstrated pleural abnormality. Normal size heart. Normal mediastinum and grant. Normal visualized pulmonary arteries. There is atherosclerotic tortuosity of the aortic arch and descending thoracic aorta. Normal visualized thoracic spine. Normal visualized ribs, clavicles, and shoulders. There is no demonstrated abnormality of the visualized soft tissue structures of the upper abdomen. RAD/Chest 1 View (Portable) IMPRESSION: No acute abnormality is seen. Electronically Signed: Rich Salgado MD at 14:58 EDT ,
--- NOTE | 2023-09-06 14:28 | ED.RN ---
ambulated patient. Patient maintained 89% the duration of the walk on RA.
[2023-09-06 14:44] LABS: Red Blood Cells-Urine 0 SEEN /hpf (0-5); White Blood Cells 0 SEEN /hpf (0-5)
[2023-09-06 14:49] LABS: Color, Urine Amber (Yellow); Glucose, Dipstick Normal (Normal); Ketone-Dipstick 50 mg/dl (Negative); Leukocyte Esterase-Dipstick 25 /ul (Negative); Nitrite-Dipstick Positive (Negative); Occult Blood-Urine 25 /ul (Negative); Protein-Dipstick 30 mg/dl (Negative); Urine Clarity Sl. Cloudy (Clear); Urine Urobilinogen 4 mg/dl (Normal)
[2023-09-06 14:56] LABS: Urine Bilirubin Dipstick 1 mg/dL (Negative)
[2023-09-06 15:00] LABS: Bacteria 1+ /hpf (None Seen); Calcium Oxalate Crystals Ur 1+ /hpf (<or=2+); Mucous, Urine 1+ /hpf (<or=2+); Squamous Epithelial Cells - UA 0-5 SEEN /hpf (5-10)
--- NOTE | 2023-09-06 17:15 | CT_ITS ---
STUDY: CTA CHEST REASON FOR EXAM: Female, 73 years old. Hypoxia RADIATION DOSAGE (If Supplied By Facility): CTDIvol = ( 4.11 ) mGy, DLP = ( 111.95 ) mGycm TECHNIQUE: The examination was performed with the intravenous administration of IV 100mL Isovue-370. Post-processing of the angiographic images was performed, with multiplanar reformation and 3D reconstruction. Individualized dose optimization techniques were used for this CT. COMPARISON: FINDINGS: Normal enhancement of the main pulmonary artery and right and left pulmonary arteries. Normal enhancement of the bilateral peripheral pulmonary arteries. There is no demonstrated pulmonary embolism. Normal thoracic aorta and visualized great vessels. There is no demonstrated aortic dissection. Normal heart and pericardium. Mild adenopathy in the mediastinum. Normal hilar regions. Normal visualized trachea and bronchi. The lungs are well expanded. Mild right pleural effusion. Mild basilar atelectasis. Normal chest wall structures. Bilateral axillary adenopathy, right more than left. Normal osseous structures. Normal visualized upper abdomen. CT/CTA Chest W/WO Contrast IMPRESSION: No demonstrated pulmonary embolism or arterial dissection. Mediastinal and bilateral axillary adenopathy. Mild right pleural effusion. Mild basilar atelectasis. Electronically Signed: Taco Baker DO at 18:13 EDT Reading Location ID and State: [facility] / [place] Tel [phone], Service support ,
--- NOTE | 2023-09-06 17:34 | EX.ED.DYSGE1 ---
HPI History of Present Illness Chief Complaint: Weakness Narrative Narrative: 73-year-old female presenting generalized weakness urinalysis. She states she recently had hematuria last week and was treated with Macrobid for UTI. She states she did not have any fevers or chills. She does feel generally weak. Patient reported a cough and shortness of breath for several weeks but has not been evaluated for this. She was urgent care previously this week when she had her urine tested and it was noted she was little tachycardic. She had a sinus tachycardia and the urgent care recommended to follow-up with cardiology. Patient was amenable to this. She does not have any chest pain. Other than sedentary lifestyle recently she has not have any DVT/PE risk factors. [facility] Medical History Hypoxia Irregular heart beat SOB (shortness of breath) Home Medications dexamethasone 2 mg tablet 6 mg (3 x 2 mg) PO DAILY@0800 8 days #24 tabs 11/16/20 [Rx Last Taken Unknown] nitrofurantoin monohydrate/macrocrystals 100 mg capsule (Macrobid) 100 mg PO Q12H 5 days #10 caps 09/03/23 [Rx Last Taken Unknown] Allergy/AdvReac Type Severity Reaction Status Date / Time sulfamethoxazole Allergy Angioedema Verified 09/06/23 12:36 [From Bactrim] trimethoprim [From Bactrim] Allergy Angioedema Verified 09/06/23 12:36 Surgical History History of appendectomy Social History Smoking Status: Never smoker ROS ROS ED Constitutional Constitutional ED: Denies chills, fever(s) or sweats Eyes Eyes: Denies blurry vision or change in vision ENT ENT ED: Denies ear pain or sore throat Cardiovascular Cardiovascular: Reports palpitations; Denies chest pain or racing heartbeat Respiratory/Chest Respiratory/Chest: Reports dyspnea and dyspnea on exertion; Denies cough or sputum Gastrointestinal Gastrointestinal: Denies abdominal pain, constipation, diarrhea, nausea or vomiting Genitourinary Genitourinary ED: Reports dysuria and hematuria; Denies urinary frequency Musculoskeletal Musculoskeletal: Denies arthralgias, myalgias or neck pain Integumentary Denies abscess, Abrasions or rash Neurologic Neurologic: Denies headache(s), paresthesias or weakness Psychiatric Psychiatric: Denies anxiety, depression, suicidal ideation or suicidal thoughts Endocrine Endocrinology: Denies polydipsia or polyuria EXAM Physical Exam Const Vital Signs: 09/06/23 12:34 09/06/23 12:41 09/06/23 13:29 Temperature 96.9 F L 96.9 F L Temperature Source Temporal Temporal Pulse Rate 109 H 109 H Respiratory Rate 18 18 Respiratory Effort Normal Non-Labored Respiratory Pattern Normal Blood Pressure 125/86 H 125/86 H Blood Pressure Mean 99 99 Pulse Ox 99 99 Oxygen Delivery Method Room Air Room Air 09/06/23 12:55 09/06/23 15:19 09/06/23 13:37 Temperature 98.1 F Temperature Source Temporal Pulse Rate 64 102 H Respiratory Rate 30 H 36 H Respiratory Effort Respiratory Pattern Blood Pressure 124/66 H Blood Pressure Mean 85 Pulse Ox 94 94 Oxygen Delivery Method Room Air Room Air 09/06/23 13:40 09/06/23 13:45 09/06/23 13:50 Temperature Temperature Source Pulse Rate 103 H 100 105 H Respiratory Rate 32 H 34 H 28 H Respiratory Effort Respiratory Pattern Blood Pressure 122/63 H Blood Pressure Mean 80 Pulse Ox 96 91 92 Oxygen Delivery Method 09/06/23 14:00 09/06/23 14:10 09/06/23 14:15 Temperature Temperature Source Pulse Rate 102 H 105 H 102 H Respiratory Rate 25 H 33 H 31 H Respiratory Effort Respiratory Pattern Blood Pressure 123/66 H 130/64 H Blood Pressure Mean 81 82 Pulse Ox 92 94 93 Oxygen Delivery Method 09/06/23 14:20 09/06/23 15:17 09/06/23 15:20 Temperature Temperature Source Pulse Rate 102 H 102 H 101 H Respiratory Rate 20 H 36 H Respiratory Effort Respiratory Pattern Blood Pressure 130/64 H 124/66 H Blood Pressure Mean 86 83 Pulse Ox 92 93 94 Oxygen Delivery Method 09/06/23 15:30 09/06/23 15:40 09/06/23 15:46 Temperature Temperature Source Pulse Rate 102 H 104 H 105 H Respiratory Rate 29 H 35 H 30 H Respiratory Effort Respiratory Pattern Blood Pressure 118/59 L 126/57 H Blood Pressure Mean 77 77 Pulse Ox 94 92 93 Oxygen Delivery Method 09/06/23 15:50 09/06/23 16:00 03/15/24 16:10 Temperature Temperature Source Pulse Rate 109 H 102 H Respiratory Rate 19 H 28 H Respiratory Effort Respiratory Pattern Blood Pressure 119/66 Blood Pressure Mean 79 Pulse Ox 94 94 Oxygen Delivery Method 09/06/23 16:15 09/06/23 16:20 09/06/23 16:30 Temperature Temperature Source Pulse Rate 104 H 104 H 104 H Respiratory Rate 27 H 38 H 36 H Respiratory Effort Respiratory Pattern Blood Pressure 121/66 H 119/61 Blood Pressure Mean 82 79 Pulse Ox 92 92 91 Oxygen Delivery Method 09/06/23 16:40 09/06/23 16:45 09/06/23 16:50 Temperature Temperature Source Pulse Rate 100 105 H 106 H Respiratory Rate 33 H 35 H 27 H Respiratory Effort Respiratory Pattern Blood Pressure 122/63 H Blood Pressure Mean 80 Pulse Ox 91 90 91 Oxygen Delivery Method 09/06/23 17:00 09/06/23 17:10 09/06/23 17:15 Temperature Temperature Source Pulse Rate 101 H 105 H Respiratory Rate 32 H 33 H Respiratory Effort Respiratory Pattern Blood Pressure 115/63 123/63 H Blood Pressure Mean 78 80 Pulse Ox 91 90 Oxygen Delivery Method 09/06/23 17:20 09/06/23 17:30 09/06/23 17:45 Temperature Temperature Source Pulse Rate 111 H 103 H Respiratory Rate 30 H 35 H Respiratory Effort Respiratory Pattern Blood Pressure 122/59 H 120/51 L Blood Pressure Mean 78 72 Pulse Ox 91 90 Oxygen Delivery Method 09/06/23 17:50 09/06/23 18:00 09/06/23 18:10 Temperature Temperature Source Pulse Rate 111 H 106 H 103 H Respiratory Rate 22 H 21 H 27 H Respiratory Effort Respiratory Pattern Blood Pressure 125/50 H Blood Pressure Mean 71 Pulse Ox 91 91 91 Oxygen Delivery Method 09/06/23 18:15 09/06/23 18:20 09/06/23 18:30 Temperature Temperature Source Pulse Rate 108 H 99 103 H Respiratory Rate 24 H 25 H 37 H Respiratory Effort Respiratory Pattern Blood Pressure 117/65 121/63 H Blood Pressure Mean 79 79 Pulse Ox 91 90 91 Oxygen Delivery Method 09/06/23 18:40 09/06/23 18:45 09/06/23 18:50 Temperature Temperature Source Pulse Rate 103 H 103 H 107 H Respiratory Rate 25 H 30 H 22 H Respiratory Effort Respiratory Pattern Blood Pressure 112/73 112/73 Blood Pressure Mean 84 86 Pulse Ox 90 93 92 Oxygen Delivery Method 09/06/23 20:20 Temperature 97.9 F Temperature Source Pulse Rate 104 H Respiratory Rate 24 H Respiratory Effort Respiratory Pattern Blood Pressure 125/64 H Blood Pressure Mean 84 Pulse Ox 93 Oxygen Delivery Method General Appearance ED: Negative for pallor HEENT Reports moist mucous membranes Eyes PERRL and EOMs intact bilaterally General Eye ED: Negative for pale conjunctiva Chest Wall inspection of chest normal Resp normal respiratory effort and clear to auscultation bilaterally Auscultation: Negative for rales, rhonchi or wheezes Cardio regular rhythm Rate: tachycardic GI normal to inspection, nondistended, normoactive bowel sounds Extremity normal to inspection Neuro oriented x3 and CN's II-XII intact bilaterally Sensorium / Orientation: alert Psych mental status grossly normal Skin no rashes or lesions noted General Skin Exam: Negative for jaundice or pallor MDM MDM MDM Narrative Medical decision making narrative: Patient presenting with generalized weakness. Urinalysis culture was reviewed and showed E. coli however it only showed 1000-10,000 colony-forming units and was hutton susceptible. CBC obtained today shows normal white blood count 10.1 hemoglobin is 10.6 however there is no recent comparison. She was 13.7 in 2020. Denies black or bloody stools. GFR slightly low at 58. Creatinine normal 0.99. Calcium slightly high at 10.4. Troponin 6. EKG on my interpretation shows a sinus rhythm at 102 bpm without sign of ischemic change chest x-ray my interpretation shows no acute process. The radiologist interprets this and agrees. Urinalysis today shows positive nitrites but no white blood cells and no RBCs. 0-5 squamous epithelial cells with 1+ bacteria. Patient states she does not currently have any urinary symptoms. I did ambulate the patient in the hallway and she dropped to 89% while walking. She states she felt steady. Since the patient is still tachycardic and a little hypoxic we did discuss at length possibilities. Will obtain a CTA of the chest to rule out PE or other acute abnormalities that she is mostly symptomatic with dyspnea and tachycardia like mild colitis. CTA was negative for PE, dissection, pneumonia. There is a mild right pleural effusion. Again the patient feels like she can go home and she is not technically hypoxic. Discussed finishing her antibiotics as her urine is mildly close positive nitrites although her culture was equivocal. Return precautions were discussed at length. All questions were answered. Impression: 1. Weakness 2. Dyspnea 3. History of UTI Lab Data Labs: Laboratory Results - last 24 hr 09/06/23 09/06/23 13:16 14:32 WBC 10.1 RBC 3.58 L Hgb 10.6 L Hct 31.5 L MCV 88.0 MCH 29.6 MCHC 33.7 RDW Std Deviation 44.1 H RDW Coeff of Alex 13.9 Plt Count 135 L MPV 9.6 Immature Gran % (Auto) 1.300 H Neut % (Auto) 79.7 H Lymph % (Auto) 9.8 L [place] % (Auto) 6.1 Eos % (Auto) 2.5 Baso % (Auto) 0.6 Absolute Neuts (auto) 8.1 H Absolute Lymphs (auto) 0.99 Nucleated RBC % 0 Reactive Lymphocytes RARE Sodium 138 Potassium 3.8 Chloride 105 Carbon Dioxide 30.0 Anion Gap 3 L BUN 21 H Creatinine 0.99 Estim Creat Clear Calc 46.67 Est GFR (MDRD) Af Amer 71 Est GFR (MDRD) Non-Af 58 L BUN/Creatinine Ratio 21.2 H Glucose 126 H Calcium 10.4 H Troponin I High Sens 6 Urine Color [place]iley Urine Clarity Sl. Cloudy Urine pH 5.0 Ur Specific [place] 1.020 Urine Protein 30 H Urine Glucose (UA) Normal Urine Ketones 50 H Urine Occult Blood 25 H Urine Nitrite Positive H Urine Bilirubin 1 H Urine Urobilinogen 4 H Ur Leukocyte Esterase 25 H Urine RBC 0 SEEN Urine WBC 0 SEEN Ur Squamous Epith Cells 0-5 SEEN Calcium Oxalate Crystal 1+ Urine Bacteria 1+ Urine Mucus 1+ Radiography Diagnostic Testing: Clinical Impression(s) from Imaging Studies Chest X-Ray 09/06/23 14:18 IMPRESSION: No acute abnormality is seen. Electronically Signed: Rich Salgado MD at 14:58 EDT , Chest CTA 09/06/23 17:15 IMPRESSION: No demonstrated pulmonary embolism or arterial dissection. Mediastinal and bilateral axillary adenopathy. Mild right pleural effusion. Mild basilar atelectasis. Electronically Signed: Taco Baker DO at 18:13 EDT , Discharge Plan Triage Chief Complaint: Weakness ED Provider: Kenton Tineo Dx/Rx/DC Orders Clinical Impression: SOB (shortness of breath) Instructions: ED Weakness (Uncertain Cause) Prescriptions: No Action nitrofurantoin monohyd/m-cryst [Macrobid] 100 mg capsule 100 mg PO Q12H 5 Days Qty: 10 0RF Rx Instructions: must administer with a meal/food dexamethasone 2 mg Tablet 6 mg PO DAILY@0800 8 Days Qty: 24 0RF Primary Care Provider: Care Physician,No Primary Referrals: Yolanda Guadalupe [Provider Group] - 3-5 Days Care Physician,No Primary [Primary Care Provider] - Disposition Disposition: Home, Self Care Discharge Date/Time: 09/06/23 20:21
== END 2023-09-06 20:21 | disposition home or self-care (01) ==
PROVIDERS: Emergency Provider Student in an Organized Health Care Education/Training Program; Visit Provider Student in an Organized Health Care Education/Training Program
DX: R06.02 Shortness of breath (principal); R53.1 Weakness
CPT/HCPCS: 71045; 71275; 80048; 81001; 84484; 85025; 87631; 93005; 99283; Q9967; A4216

== ENCOUNTER → 2023-09-11 | Outpatient (CLI) | payer MEDICARE, OTHER, SELFPAY ==
[2023-09-11 17:04] LABS: Absolute Lymphocyte Count 1.07 X10^3/uL (0.83-4.51); Absolute Neutrophil Count 9.6 X10^3/uL (2.0-7.7); Basophil# 0.07 X10^3/uL; Basophil% 0.6 % (0-1); Eosinophil# 0.26 X10^3/uL; Eosinophils% 2.2 % (0-5); Hematocrit 26.7 % (37-47); Hemoglobin 8.9 g/dL (12.0-15.0); Lymphocyte # 1.07 X10^3/ul (0.83-4.51); Mean Corp Hgb Conc 33.3 g/dL (32-36); Mean Corpuscular Hgb 30.3 pg (27.0-32.0); Mean Corpuscular Volume 90.8 fL (81-99); Mean Platelet Vol. 10.4 fl (6.2-12.0); Monocyte# 0.68 X10^3/uL; Monocyte% 5.7 % (0-10); NRBC Flagged by Analyzer 0 % (0-5); Neutrophil # 9.59 X10^3/uL (2.7-7.7); POSITIVE MORPHOLOGY YES; Platelet Count 131 K/mm3 (150-450); RBC Distribution Width CV 14.2 % (11.6-14.6); RBC Distribution Width SD 43.7 fl (35.1-43.9); Red Blood Count 2.94 M/mm3 (4.2-5.4); White Blood Count 11.9 K/mm3 (4.4-11.0)
[2023-09-11 17:16] LABS: Differential Indicated SCAN CRITERIA MET
[2023-09-11 17:55] LABS: BNP,B-Type NATRIURETIC PEPTIDE 88.7 pg/mL (0-100)
[2023-09-11 17:59] LABS: Differential Comment SCANNED
[2023-09-11 18:03] LABS: Anion Gap 6 (5-15); BUN 40 mg/dL (7-18); BUN/Creat Ratio 37.7 RATIO (10-20); Calcium,Total 11.7 mg/dL (8.5-10.1); Chloride 102 mmol/L (98-107); Creatinine, Serum 1.06 mg/dL (0.55-1.02); EST Glomerular Filtration Rate 54 mL/min (>60); Est Glom Filt Rate - Afr Amer 65 mL/min (>60); Glucose 126 mg/dL (74-106); Potassium 3.9 mmol/L (3.5-5.1); Sodium Level 137 mmol/L (136-145); Thyroid Stim Hormone (TSH) 5.19 uIU/mL (0.358-3.74)
== END | disposition home or self-care (01) ==
LOC: LAB 16:26
PROVIDERS: PCP Family Medicine; Referring Provider Internal Medicine Cardiovascular Disease; Visit Provider Internal Medicine Cardiovascular Disease
DX: R06.02 Shortness of breath (principal); I49.9 Cardiac arrhythmia, unspecified; R09.02 Hypoxemia
CPT/HCPCS: 36415; 80048; 83880; 84443; 85025

== ENCOUNTER 2023-09-12 17:33 | Inpatient (IN) | payer MEDICARE, OTHER, SELFPAY ==
[2023-09-12] VITALS (11 sets, daily range): BP systolic 99–110; BP diastolic 48–61; PULSE 92–107; RESP 15–34; TEMP 36.4–36.8; O2SAT 73–96; BMI 21.9; BMI 21.7
--- NOTE | 2023-09-12 18:05 | EX.ED.DYSGE1 ---
HPI <SIMON Britton - Last Filed: 09/12/23 22:12> History of Present Illness Chief Complaint: Weakness Narrative Narrative: Patient presenting today due to generalized weakness she has had over the past 3 weeks or so. She is here with her daughter and who reports that she is becoming progressively more weak and is sitting in her recliner basically all day except to use the bathroom. She was seen on 09/03/2023 at the urgent care for urinary symptoms and was diagnosed with a UTI and started on Macrobid. Weakness continued and she was then seen in the ED on 09/05 and ultimately was discharged home. She saw Dr. Borjas and cardiology yesterday and he obtained laboratory work, she received a phone call today stating that it looked like she was anemic and she should come back into the ED for evaluation. She denies any history of GI bleed. She reports that over the past few weeks she has noticed blood in her stool that ranges from bright red to a dark color. She denies any fevers, chills, abdominal pain, nausea, or vomiting. She denies a PMH of any chronic health conditions. PFSH <SIMON Britton - Last Filed: 09/12/23 22:12> PFSH Medical History Hypoxia Irregular heart beat SOB (shortness of breath) Home Medications ascorbic acid (vitamin C) 500 mg tablet 500 mg PO DAILY 09/11/23 [History Last Taken Unknown] Allergy/AdvReac Type Severity Reaction Status Date / Time sulfamethoxazole Allergy Angioedema Verified 09/12/23 17:34 [From Bactrim] trimethoprim [From Bactrim] Allergy Angioedema Verified 09/12/23 17:34 nitrofurantoin AdvReac Diarrhea Verified 09/12/23 17:34 [From Macrobid] Family History Mother Diabetes Surgical History History of appendectomy Social History Smoking Status: Never smoker alcohol intake: never substance use type: does not use caffeine: Yes Type: carbonated beverages Number of servings: 3 ROS <SIMON Britton - Last Filed: 09/12/23 22:12> ROS ED Constitutional Constitutional ED: Denies chills or fever(s) Cardiovascular Cardiovascular: Denies chest pain Respiratory/Chest Respiratory/Chest: Denies cough or dyspnea Gastrointestinal Gastrointestinal: Denies abdominal pain, constipation, diarrhea, nausea or vomiting Genitourinary Genitourinary ED: Denies dysuria, hematuria or urinary urgency Musculoskeletal Musculoskeletal: Denies arthralgias or myalgias Integumentary Denies rash Neurologic Neurologic: Reports weakness EXAM <SIMON Britton - Last Filed: 09/12/23 22:12> Physical Exam Const Vital Signs: 09/12/23 17:35 09/12/23 18:34 09/12/23 18:36 Temperature 97.5 F L Temperature Source Temporal Pulse Rate 107 H 96 96 Respiratory Rate 20 H 28 H 22 H Blood Pressure 99/51 L 101/48 L 101/48 L Blood Pressure Mean 67 65 65 Blood Pressure Source Blood Pressure Position Blood Pressure Location Pulse Ox 94 73 93 Oxygen Delivery Method Room Air Room Air Nasal Cannula Oxygen Flow Rate (L/min) 6 09/12/23 20:17 09/12/23 21:18 09/12/23 21:51 Temperature 98.1 F Temperature Source Oral Pulse Rate 92 96 100 Respiratory Rate 15 22 H 22 H Blood Pressure 101/55 L 107/60 106/52 L Blood Pressure Mean 70 75 70 Blood Pressure Source Monitor Blood Pressure Position Semi-Fowlers Blood Pressure Location Right Arm Pulse Ox 95 96 95 Oxygen Delivery Method Nasal Cannula Nasal Cannula Oxygen Flow Rate (L/min) 1.5 1.5 09/12/23 21:53 09/12/23 22:06 Temperature 98.1 F 98.0 F Temperature Source Oral Pulse Rate 100 100 Respiratory Rate 22 H 34 H Blood Pressure 106/52 L 109/59 L Blood Pressure Mean 70 75 Blood Pressure Source Monitor Blood Pressure Position Semi-Fowlers Blood Pressure Location Right Arm Pulse Ox 95 95 Oxygen Delivery Method Nasal Cannula Oxygen Flow Rate (L/min) 1.5 Positive well nourished, well developed and no apparent distress General Appearance ED: well developed HEENT Reports normocephalic and head/scalp atraumatic Mouth ED: Yes moist mucous membranes normal Eyes PERRL and EOMs intact bilaterally Neck full ROM and supple Chest Wall inspection of chest normal Resp normal respiratory effort and clear to auscultation bilaterally Cardio regular rate and regular rhythm GI soft to palpation, non-tender, non-distended and no masses GI Narrative: Rectal examination performed with nurse present, no blood noticed on SYLVIA however limited sample, normal sphincter tone Back/Spine normal ROM and normal to inspection Extremity normal to inspection and full ROM Neuro oriented x3, CN's II-XII intact bilaterally, moves all extremities, no focal motor deficits and no sensory deficits noted Sensorium / Orientation: awake and alert Psych mental status grossly normal and thought process normal Skin no rashes or lesions noted and no wounds <Dr. Niki Vasquez MD - Last Filed: 09/12/23 22:54> Physical Exam Const Vital Signs: 09/12/23 17:35 09/12/23 18:34 09/12/23 18:36 Temperature 97.5 F L Temperature Source Temporal Pulse Rate 107 H 96 96 Respiratory Rate 20 H 28 H 22 H Blood Pressure 99/51 L 101/48 L 101/48 L Blood Pressure Mean 67 65 65 Blood Pressure Source Blood Pressure Position Blood Pressure Location Pulse Ox 94 73 93 Oxygen Delivery Method Room Air Room Air Nasal Cannula Oxygen Flow Rate (L/min) 6 09/12/23 20:17 09/12/23 21:18 09/12/23 21:51 Temperature 98.1 F Temperature Source Oral Pulse Rate 92 96 100 Respiratory Rate 15 22 H 22 H Blood Pressure 101/55 L 107/60 106/52 L Blood Pressure Mean 70 75 70 Blood Pressure Source Monitor Blood Pressure Position Semi-Fowlers Blood Pressure Location Right Arm Pulse Ox 95 96 95 Oxygen Delivery Method Nasal Cannula Nasal Cannula Oxygen Flow Rate (L/min) 1.5 1.5 09/12/23 21:53 09/12/23 22:06 Temperature 98.1 F 98.0 F Temperature Source Oral Pulse Rate 100 100 Respiratory Rate 22 H 34 H Blood Pressure 106/52 L 109/59 L Blood Pressure Mean 70 75 Blood Pressure Source Monitor Blood Pressure Position Semi-Fowlers Blood Pressure Location Right Arm Pulse Ox 95 95 Oxygen Delivery Method Nasal Cannula Oxygen Flow Rate (L/min) 1.5 MDM <SIMON Britton - Last Filed: 09/12/23 22:12> [facility] Narrative Medical decision making narrative: Patient presenting for generalized weakness she has had over the past 3 weeks. She is nontoxic-appearing and in no acute distress. She is hypotensive, slightly tachycardic and slightly tachypneic. Labs were obtained yesterday with Dr. Borjas and her hemoglobin did drop from 10.6 to 8.9 in 5 days. She reports blood in her stool that is ranged from dark red to more of a bright red in color over the past few weeks. I did perform a rectal exam, I do not appreciate any blood but it was also a limited sample. Labs will be obtained to rule out leukocytosis, worsening anemia, electrolyte abnormality, JUSTA, UTI. Given her hemoglobin dropped in just a few days, she will be typed and crossed for 1 unit of blood. She will be given IV fluids. Patient did become hypoxic at 73% on room air and was put on 6 L O2, she was eventually titrated down to 1.5 L and is now around 96% on room air. For this reason I did obtain a chest x-ray which shows worsening aeration, CT was obtained and shows small bilateral pleural effusions, no PE. She was tested for COVID, influenza, and RSV a few days ago when she was here, that was negative. Her UA does appear worse, she had been on Macrobid for a UTI when she was seen at urgent care. UA culture will be obtained and she will be given a dose of Rocephin. Given her hypoxia, anemia, weakness, and UTI reason she would benefit from admission to the hospital. I will speak with the hospitalist. Lab Data Attestation: I reviewed the patient's lab results. Lab results narrative: WBC 11.6, H&H 8.2 and 24.9, BUN 39, bilirubin 1.1, albumin 2.4 UA shows 100 leukocyte esterase, positive nitrites, positive blood, 3+ bacteria Labs: Laboratory Results - last 24 hr 09/12/23 09/12/23 09/12/23 18:05 21:00 21:49 WBC 11.6 H RBC 2.84 L Hgb 8.2 L Hct 24.9 L MCV 87.7 MCH 28.9 MCHC 32.9 RDW Std Deviation 43.3 RDW Coeff of Alex 13.7 Plt Count 122 L MPV 10.1 Immature Gran % (Auto) 1.500 H Neut % (Auto) 79.2 H Lymph % (Auto) 10.5 L Eddy % (Auto) 6.0 Eos % (Auto) 2.3 Baso % (Auto) 0.5 Absolute Neuts (auto) 9.2 H Absolute Lymphs (auto) 1.22 Nucleated RBC % 0 Atypical Lymphocytes 1+ Platelet Estimate SLT DEC RBC Morphology N CHROM Anisocytosis RARE Sodium 139 Potassium 3.7 Chloride 105 Carbon Dioxide 29.0 Anion Gap 5 BUN 39 H Creatinine 1.02 Estim Creat Clear Calc 45.30 Est GFR (MDRD) Af Amer 68 Est GFR (MDRD) Non-Af 56 L BUN/Creatinine Ratio 38.2 H Glucose 113 H Calcium 11.4 H Total Bilirubin 1.10 H AST 13 L ALT 12 L Alkaline Phosphatase 63 Troponin I High Sens 7 B-Natriuretic Peptide 110.1 H Total Protein 6.4 Albumin 2.4 L Globulin 4.0 Albumin/Globulin Ratio 0.6 L Urine Color Yellow Urine Clarity Sl. Cloudy Urine pH 5.0 Ur Specific [place] 1.025 Urine Protein 15 H Urine Glucose (UA) Normal Urine Ketones 5 H Urine Occult Blood 10 H Urine Nitrite Positive H Urine Bilirubin Negative Urine Urobilinogen Normal Ur Leukocyte Esterase 100 H Urine RBC 0-5 SEEN Urine WBC 5-10 SEEN Ur Squamous Epith Cells 0-5 SEEN Amorphous Sediment 1+ URATE Urine Bacteria 3+ Urine Mucus 0 SEEN Blood Type A POSITIVE Antibody Screen NEGATIVE Crossmatch See Detail Radiography X-Ray: Read by ED Physician and Read by Radiologist Diagnostic Testing: Clinical Impression(s) from Imaging Studies Chest X-Ray 09/12/23 18:48 IMPRESSION: Worsening aeration of the lungs. Otherwise, no change from prior study. Electronically Signed: Medhat Glass MD at 19:54 EDT , Chest CTA 09/12/23 19:03 IMPRESSION: No evidence of acute pulmonary emboli to the segmental level. Redemonstration of mediastinal and bilateral hilar and axillary lymphadenopathy. Cardiomegaly with interstitial edema and small bilateral pleural effusions. Electronically Signed: Medhat Glass MD at 21:31 EDT , EKG Initial EKG: Comments: 92 bpm, normal sinus rhythm, left axis deviation, no ST elevation, reviewed and interpreted by attending ED physician <Dr. Niki Vasquez MD - Last Filed: 09/12/23 22:54> [facility] Lab Data Labs: Laboratory Results - last 24 hr 09/12/23 09/12/23 09/12/23 18:05 21:00 21:49 WBC 11.6 H RBC 2.84 L Hgb 8.2 L Hct 24.9 L MCV 87.7 MCH 28.9 MCHC 32.9 RDW Std Deviation 43.3 RDW Coeff of Alex 13.7 Plt Count 122 L MPV 10.1 Immature Gran % (Auto) 1.500 H Neut % (Auto) 79.2 H Lymph % (Auto) 10.5 L Eddy % (Auto) 6.0 Eos % (Auto) 2.3 Baso % (Auto) 0.5 Absolute Neuts (auto) 9.2 H Absolute Lymphs (auto) 1.22 Nucleated RBC % 0 Atypical Lymphocytes 1+ Platelet Estimate SLT DEC RBC Morphology N CHROM Anisocytosis RARE Sodium 139 Potassium 3.7 Chloride 105 Carbon Dioxide 29.0 Anion Gap 5 BUN 39 H Creatinine 1.02 Estim Creat Clear Calc 45.30 Est GFR (MDRD) Af Amer 68 Est GFR (MDRD) Non-Af 56 L BUN/Creatinine Ratio 38.2 H Glucose 113 H Calcium 11.4 H Total Bilirubin 1.10 H AST 13 L ALT 12 L Alkaline Phosphatase 63 Troponin I High Sens 7 B-Natriuretic Peptide 110.1 H Total Protein 6.4 Albumin 2.4 L Globulin 4.0 Albumin/Globulin Ratio 0.6 L Urine Color Yellow Urine Clarity Sl. Cloudy Urine pH 5.0 Ur Specific [place] 1.025 Urine Protein 15 H Urine Glucose (UA) Normal Urine Ketones 5 H Urine Occult Blood 10 H Urine Nitrite Positive H Urine Bilirubin Negative Urine Urobilinogen Normal Ur Leukocyte Esterase 100 H Urine RBC 0-5 SEEN Urine WBC 5-10 SEEN Ur Squamous Epith Cells 0-5 SEEN Amorphous Sediment 1+ URATE Urine Bacteria 3+ Urine Mucus 0 SEEN Blood Type A POSITIVE Antibody Screen NEGATIVE Crossmatch See Detail Radiography Diagnostic Testing: Clinical Impression(s) from Imaging Studies Chest X-Ray 09/12/23 18:48 IMPRESSION: Worsening aeration of the lungs. Otherwise, no change from prior study. Electronically Signed: Medhat Glass MD at 19:54 EDT , Chest CTA 09/12/23 19:03 IMPRESSION: No evidence of acute pulmonary emboli to the segmental level. Redemonstration of mediastinal and bilateral hilar and axillary lymphadenopathy. Cardiomegaly with interstitial edema and small bilateral pleural effusions. Electronically Signed: Medhat Glass MD at 21:31 EDT , Treatment and Re-Evaluation :: Patient seen and evaluated with [facility]. I personally interviewed and examined the patient. I was involved in all aspects of patient's orders, interpretation of results, and treatment. Patient presents with family secondary to increased weakness. She was seen at urgent care recently diagnosed with a UTI. She was treated with Macrobid which gave her diarrhea. She has had shortness of breath, worse with exertion. She was seen by cardiology yesterday and her lab work appears to show a 1.5 g hemoglobin drop in the last 5 days. She states she has had some intermittent blood, stools versus with urination. She is also had 9 nosebleeds in the last 2 weeks, but states that she is able to get them under control pretty quickly. Patient lying in bed in no acute distress. Head and neck examination unremarkable. Heart is regular rate and rhythm with murmur noted. Lung sounds are grossly clear. Abdomen is soft and nontender. Neuro exam reveals no focal deficit, but generalized weakness is noted. CBC reveals a white count 11.6 with a hemoglobin of 8.2. Chemistry studies reveal a BUN of 39. Total bili is 1.1. BNP is 110. Urinalysis reveals positive nitrites with 3+ bacteria and 5-10 white cells. Chest x-ray per my interpretation reveals small pleural effusion and chronic changes. Radiology interpretation is reviewed. EKG is sinus rhythm with no acute ischemia. Nursing staff does note patient's O2 sat dropped into the 70s on room air with good waveform. She was placed on 6 L and this was able to be quickly titrated down to 2 L. Given this she does undergo a repeat CTA of the chest. This reveals no evidence of pulmonary embolism. She has cardiomegaly with interstitial edema and small bilateral pleural effusions. Stool guaiac test is negative. Patient received a dose of Rocephin for her UTI. Patient discussed with hospitalist for admission and will undergo further cardiac/CHF workup as well. Patient has been ordered 1 unit of packed RBCs for her anemia. Discharge Plan Triage Chief Complaint: Weakness ED Midlevel Provider: Shellie Webber ED Provider: Niki Vasquez Dx/Rx/DC Orders Primary Care Provider: Keisha Paniagua
[2023-09-12 18:15] LABS: Absolute Lymphocyte Count 1.22 X10^3/uL (0.83-4.51); Absolute Neutrophil Count 9.2 X10^3/uL (2.0-7.7); Basophil# 0.06 X10^3/uL; Basophil% 0.5 % (0-1); Eosinophil# 0.27 X10^3/uL; Eosinophils% 2.3 % (0-5); Hematocrit 24.9 % (37-47); Hemoglobin 8.2 g/dL (12.0-15.0); Lymphocyte # 1.22 X10^3/ul (0.83-4.51); Lymphocyte % 10.5 % (19-41); Mean Corp Hgb Conc 32.9 g/dL (32-36); Mean Corpuscular Hgb 28.9 pg (27.0-32.0); Mean Corpuscular Volume 87.7 fL (81-99); Mean Platelet Vol. 10.1 fl (6.2-12.0); NRBC Flagged by Analyzer 0 % (0-5); Neutrophil # 9.22 X10^3/uL (2.7-7.7); Neutrophil % 79.2 % (47-70); POSITIVE MORPHOLOGY YES; Platelet Count 122 K/mm3 (150-450); RBC Distribution Width CV 13.7 % (11.6-14.6); RBC Distribution Width SD 43.3 fl (35.1-43.9); Red Blood Count 2.84 M/mm3 (4.2-5.4); White Blood Count 11.6 K/mm3 (4.4-11.0)
[2023-09-12 18:24] LABS: Differential Indicated SCAN CRITERIA MET
[2023-09-12] MEDS: 0.9% Normal Saline (1000mL) 1,000 ML 999 ML IV (18:25)
[2023-09-12 18:39] LABS: ALB/GLOB Ratio 0.6 RATIO (0.9-2.4); AST(SGOT) 13 U/L (15-37); Alanine Aminotransfer ALT/SGPT 12 U/L (13-56); Albumin, Serum 2.4 g/dL (3.2-5.0); Alkaline Phosphatase 63 U/L (45-117); Anion Gap 5 (5-15); BUN 39 mg/dL (7-18); BUN/Creat Ratio 38.2 RATIO (10-20); Calcium,Total 11.4 mg/dL (8.5-10.1); Chloride 105 mmol/L (98-107); Creatinine, Serum 1.02 mg/dL (0.55-1.02); EST Glomerular Filtration Rate 56 mL/min (>60); Est Glom Filt Rate - Afr Amer 68 mL/min (>60); Glucose 113 mg/dL (74-106); Potassium 3.7 mmol/L (3.5-5.1); Protein, Total 6.4 g/dL (6.4-8.2); Sodium Level 139 mmol/L (136-145)
--- NOTE | 2023-09-12 18:48 | RAD_ITS ---
INDICATION: shortness of breath EXAMINATION/TECHNIQUE: X-RAY - XR Chest 2 Views COMPARISON: 09/06/2023. FINDINGS: Increased interstitial markings. Tortuous and calcified thoracic aorta. The heart is mildly enlarged. No pleural effusion or pneumothorax. The osseous structures are unchanged. RAD/Chest PA and Lateral IMPRESSION: Worsening aeration of the lungs. Otherwise, no change from prior study. Electronically Signed: Medhat Glass MD at 19:54 EDT ,
[2023-09-12 18:57] LABS: Anisocytosis RARE; Atypical Lymphocyte 1+ %; Platelet Estimate SLT DEC (ADEQ); Red Cell Morphology N CHROM NORMAL (NORM C&C)
--- NOTE | 2023-09-12 19:03 | EKG12_ITS ---
Test Reason : DYSRHYTHMIA Blood Pressure : / mmHG Vent. Rate : 092 BPM Atrial Rate : 092 BPM P-R Int : 158 ms QRS Dur : 086 ms QT Int : 352 ms P-R-T Axes : 073 -46 061 degrees QTc Int : 435 ms Normal sinus rhythm with sinus arrhythmia Possible Left atrial enlargement Left axis deviation Septal infarct , age undetermined Abnormal ECG Confirmed by Chris Dan ([id number]), electronic news gathering editor FINA ZELAYA ([id number]) on 09/13/2023 8:28:01 AM Referred By: Confirmed By:Chris Dan
--- NOTE | 2023-09-12 19:03 | CT_ITS ---
INDICATION: hypoxia EXAMINATION: CTA Chest WO/W Contrast Injection TECHNIQUE: Helically acquired images were obtained of the chest following administration of IV contrast. A radiation dose optimization technique was used for this scan. 3D postprocessing images including MIPS were reviewed. IV Contrast dosage and agent: IV 100mL [id number] COMPARISON: 09/06/2023. FINDINGS: Lungs: Mild intralobular septal thickening. Mediastinum: The heart is mildly enlarged. Redemonstration of mediastinal and bilateral hilar and axillary lymphadenopathy. Mild aortic arch and coronary artery calcifications. No obvious filling defect seen within the visualized pulmonary arteries. Pleura: Small bilateral pleural effusions. Bones/Soft tissues: There are diffuse degenerative changes of the spine. Upper abdomen: No visualized abnormalities in the upper abdomen. CT/CTA Chest W/WO Contrast IMPRESSION: No evidence of acute pulmonary emboli to the segmental level. Redemonstration of mediastinal and bilateral hilar and axillary lymphadenopathy. Cardiomegaly with interstitial edema and small bilateral pleural effusions. Electronically Signed: Medhat Glass MD at 21:31 EDT ,
[2023-09-12 21:06] LABS: Mucous, Urine 0 SEEN /hpf (<or=2+)
[2023-09-12 21:13] LABS: Color, Urine Yellow (Yellow); Glucose, Dipstick Normal (Normal); Ketone-Dipstick 5 mg/dl (Negative); Leukocyte Esterase-Dipstick 100 /ul (Negative); Nitrite-Dipstick Positive (Negative); Occult Blood-Urine 10 /ul (Negative); Protein-Dipstick 15 mg/dl (Negative); Specific Gravity, Urine 1.025 (1.002-1.030); Urine Bilirubin Dipstick Negative (Negative); Urine Clarity Sl. Cloudy (Clear); Urine Urobilinogen Normal (Normal)
[2023-09-12 21:17] LABS: Troponin-I HS 7 pg/mL (3.0-54.0)
[2023-09-12 21:39] LABS: White Blood Cells 5-10 SEEN /hpf (0-5)
[2023-09-12 21:40] LABS: Bacteria 3+ /hpf (None Seen); Red Blood Cells-Urine 0-5 SEEN /hpf (0-5); Squamous Epithelial Cells - UA 0-5 SEEN /hpf (5-10)
[2023-09-12 21:41] LABS: Amorphous Sediment 1+ URATE
--- NOTE | 2023-09-12 22:09 | HP.PCM.HOS_ITS ---
HPI - General General Date of Admission: 09/12/23 Date of Service: 09/12/23 Chief Complaint: Dyspnea, fatigue, malaise. HPI Narrative The patient is a 73 y/o F w/ no marked PMHx although patient did have recent 09/11/23 Cardiology evaluation secondary to dyspnea and mild tachycardia with plans outpatient echocardiogram, CTA as well as chest x-ray to further investigate with noted history at that time of recent UTI treated with nitrofurantoin with ongoing hematuria who now presents to the [facility] ED on 09/12/23 with significant worsening weakness, progressing over the last 3 weeks with diarrhea since she started taking Macrobid prompting her to stop which is improved some however she has had ongoing urinary frequency and red-tinged urine with dyspnea, worse with exertion with no specific cough nor any fever or chills nor any nausea, emesis or abdominal pain but given ongoing prompted ED evaluation. In the ED she did note to ED physician that sometimes she would have blood in her stools but following more lengthy discussions she notes that this was also in the toilet when she was having ongoing hematuria and as noted in the ED her guaiac is negative. Workup in the ED included T97.5, heart rate 107, BP 99/51, respiratory rate 20, 94% on room air however patient did desaturate down to 73% on room air eventually transition to nasal cannula initially 93% on 6 L with improvement to 95% on 1.5 L, most recent vital signs included T98.1, heart rate 100, BP 106/52, respiratory rate 22, CBC with WBC 11.6, hemoglobin 8.2, MCV 87.7, platelet 122 with left shift, CMP with BUN/1 and 32/1.02, glucose 113, calcium 11.4, T. bili 1.10, AST/ALT 13/12, albumin 2.4, troponin 7, urinalysis with cloudy appearing urine, specific remedy 1.025, protein 15, ketone 5, occult blood 10, positive nitrate, leukocyte Estrace 100 with 5-10 urine WBCs with 3+ urine bacteria, urine culture pending per ED, chest x-ray with interstitial increased markings with no pleural effusion or pneumothorax with enlarged heart, CTPA with no evidence of any acute pulmonary emboli to the segmental level, re-demonstration of mediastinal and bilateral hilar and axillary lymphadenopathy, cardiomegaly with interstitial edema and small bilateral pleural effusion, stool guaiac negative. In the ED patient ministered 1 L normal saline and IV Rocephin. In the ED patient ordered 2 unit PRBC. [facility] Medical History Irregular heart beat Home Medications ascorbic acid (vitamin C) 500 mg tablet 500 mg PO DAILY 09/11/23 [History Last Taken Unknown] Allergy/AdvReac Type Severity Reaction Status Date / Time sulfamethoxazole Allergy Angioedema Verified 09/12/23 17:34 [From Bactrim] trimethoprim [From Bactrim] Allergy Angioedema Verified 09/12/23 17:34 nitrofurantoin AdvReac Diarrhea Verified 09/12/23 17:34 [From Macrobid] Family History (Updated 09/13/23 @ 00:[address] Joslyn Wagner MD) Mother Diabetes Father MVA (motor vehicle accident) in MVA when he was younger, no medical history reported prior to this. Surgical History History of appendectomy Social History (Updated 09/13/23 @ 00:[address] Joslyn Wagner MD) household members: spouse Smoking Status: Never smoker alcohol intake: never substance use type: does not use caffeine: Yes Type: carbonated beverages Number of servings: 3 ROS ROS Narrative Admission Review of Systems: CONSTITUTIONAL: No weight loss, fever, chills, + weakness or fatigue. HEENT: Eyes: No visual loss, blurred vision, double vision or yellow sclerae. Ears, Nose, Throat: No hearing loss, sneezing, congestion, runny nose or sore throat. SKIN: No rash or itching, lesions, wounds. CARDIOVASCULAR: No chest pain, chest pressure or chest discomfort, palpitations, edema, orthopnea, syncopal events. RESPIRATORY: + Dyspnea, worse with exertion. No cough or sputum, wheezing, hemoptysis. GASTROINTESTINAL: + Anorexia. No nausea, vomiting or diarrhea, abdominal pain, melena, BRBPR. GENITOURINARY: Hematuria, frequency. No dysuria, urgency or retention. NEUROLOGICAL: No headache, dizziness, syncope, paralysis, ataxia, numbness or tingling in the extremities, focal weakness, change in bowel or bladder control, seizure. MUSCULOSKELETAL:+ muscle, back pain, joint pain or stiffness. HEMATOLOGIC: + Anemia with active hematuria/bleeding is noted. LYMPHATICS: No enlarged nodes. No history of splenectomy. PSYCHIATRIC: No history of depression or anxiety. ENDOCRINOLOGIC: No reports of sweating, cold or heat intolerance. No polyuria or polydipsia. ALLERGIES: + History of angioedema. Vital Signs Vital Signs Vital Signs: 09/12/23 17:35 09/12/23 18:34 09/12/23 18:36 Temperature 97.5 F L Temperature Source Temporal Pulse Rate 107 H 96 96 Respiratory Rate 20 H 28 H 22 H Blood Pressure 99/51 L 101/48 L 101/48 L Blood Pressure Mean 67 65 65 Blood Pressure Source Blood Pressure Position Blood Pressure Location Pulse Ox 94 73 93 Oxygen Delivery Method Room Air Room Air Nasal Cannula Oxygen Flow Rate (L/min) 6 09/12/23 20:17 09/12/23 21:18 09/12/23 21:51 Temperature 98.1 F Temperature Source Oral Pulse Rate 92 96 100 Respiratory Rate 15 22 H 22 H Blood Pressure 101/55 L 107/60 106/52 L Blood Pressure Mean 70 75 70 Blood Pressure Source Monitor Blood Pressure Position Semi-Fowlers Blood Pressure Location Right Arm Pulse Ox 95 96 95 Oxygen Delivery Method Nasal Cannula Nasal Cannula Oxygen Flow Rate (L/min) 1.5 1.5 09/12/23 21:53 Temperature 98.1 F Temperature Source Pulse Rate 100 Respiratory Rate 22 H Blood Pressure 106/52 L Blood Pressure Mean 70 Blood Pressure Source Blood Pressure Position Blood Pressure Location Pulse Ox 95 Oxygen Delivery Method Oxygen Flow Rate (L/min) Weight Weight: 136 lb 0.403 oz Body Mass Index (BMI) 21.9 Physical Exam Narrative Physical Examination: General: Awake, alert, oriented x 3 and cooperative, seated upright in the ED bed, fatigued appearing. Skin: Pale color, normal turgor, no icterus, no cyanosis. HEENT: AT/NC, EOMI, PERRLA, mildly dry MM, no carotid bruits or JVD noted. Lungs: Diminished, greater bases, very minimal distant rales, no rhonchi or wheezing. Heart: Mildly tachycardic with regular rhythm; no gallop, rub audible. Abdomen: Soft, NTTP, ND, mildly hyperactive distant BS, no HSM. Extremities: No cyanosis, clubbing, or edema. Neurological: Patient awake, alert, oriented as noted, cognitive function intact; pupils equally reactive to light and accommodation, cranial nerves II- XII grossly normal, moving all 4 extremities, no focal deficits, strength moderately to severely globally decreased secondary to acute presentation comp laints. Psychiatric: Affect appears flat, fatigued, no acute evidence of depressive or anxiety feelings. Results Lab / Micro Data 09/12/23 18:05 09/12/23 18:05 Labs: Laboratory Results - last 24 hr 09/12/23 18:05: WBC 11.6 H, RBC 2.84 L, Hgb 8.2 L, Hct 24.9 L, MCV 87.7, MCH 28.9, MCHC 32.9, RDW Std Deviation 43.3, RDW Coeff of Alex 13.7, Plt Count 122 L, MPV 10.1, Immature Gran % (Auto) 1.500 H, Neut % (Auto) 79.2 H, Lymph % (Auto) 10.5 L, Levy % (Auto) 6.0, Eos % (Auto) 2.3, Baso % (Auto) 0.5, Absolute Neuts (auto) 9.2 H, Absolute Lymphs (auto) 1.22, Nucleated RBC % 0, Atypical Lymphocytes 1+, Platelet Estimate SLT DEC, RBC Morphology N CHROM, Anisocytosis RARE, Sodium 139, Potassium 3.7, Chloride 105, Carbon Dioxide 29.0, Anion Gap 5, BUN 39 H, Creatinine 1.02, Estim Creat Clear Calc 45.30, Est GFR (MDRD) Af Amer 68, Est GFR (MDRD) Non-Af 56 L, BUN/Creatinine Ratio 38.2 H, Glucose 113 H, Calcium 11.4 H, Total Bilirubin 1.10 H, AST 13 L, ALT 12 L, Alkaline Phosphatase 63, Troponin I High Sens 7, Total Protein 6.4, Albumin 2.4 L, Globulin 4.0, Albumin/Globulin Ratio 0.6 L, Blood Type A POSITIVE, Antibody Screen NEGATIVE, Crossmatch See Detail 09/12/23 21:00: Urine Color Yellow, Urine Clarity Sl. Cloudy, Urine pH 5.0, Ur Specific [place] 1.025, Urine Protein 15 H, Urine Glucose (UA) Normal, Urine Ketones 5 H, Urine Occult Blood 10 H, Urine Nitrite Positive H, Urine Bilirubin Negative, Urine Urobilinogen Normal, Ur Leukocyte Esterase 100 H, Urine RBC 0-5 SEEN, Urine WBC 5-10 SEEN, Ur Squamous Epith Cells 0-5 SEEN, Amorphous Sediment 1+ URATE, Urine Bacteria 3+, Urine Mucus 0 SEEN Micro: Microbiology 09/12/23 18:05 Stool Stool Occult Blood ([place]) - Final Imaging Radiology Impression Chest X-Ray 09/12/23 18:48 IMPRESSION: Worsening aeration of the lungs. Otherwise, no change from prior study. Electronically Signed: Medhat Glass MD at 19:54 EDT , Chest CTA 09/12/23 19:03 IMPRESSION: No evidence of acute pulmonary emboli to the segmental level. Redemonstration of mediastinal and bilateral hilar and axillary lymphadenopathy. Cardiomegaly with interstitial edema and small bilateral pleural effusions. Electronically Signed: Medhat Glass MD at 21:31 EDT , Assessment & Plan Assessment/Plan (1) UTI (urinary tract infection): PLAN: Plan The patient is a 73 y/o F w/ no marked PMHx although patient did have recent 09/11/23 Cardiology evaluation secondary to dyspnea and mild tachycardia with plans outpatient echocardiogram, CTA as well as chest x-ray to further investigate with noted history at that time of recent UTI treated with nitrofurantoin with ongoing hematuria who now presents to the [facility] ED on 09/12/23 with significant worsening weakness, progressing over the last 3 weeks with diarrhea since she started taking Macrobid prompting her to stop which is improved some however she has had ongoing urinary frequency and red-tinged urine with dyspnea, worse with exertion with no specific cough nor any fever or chills nor any nausea, emesis or abdominal pain but given ongoing prompted ED evaluation. #1. Acute Hypoxia, unclear etiology; however, suspect HF unclear type Exacerbation: Will admit to PCU, will maintain on cardiac telemetry, will obtain cardiac enzyme series, obtain serial EKGs, given low normal BP will pulse dose with low dose IV lasix x 1 upon admission and BID as able, ECHO requested, monitor I/Os, obtain TSH and magnesium level, FLP in AM. Given anemia with hematuria defer asa. Patient being administered 2 u PRBC per ED. PT/OT/CM consulted for discharge planning. BNP pending upon admission. Given patient has been following with Dr. Borjas, will place consultation per patient and family preference. #2. Acute Complicated Urinary Tract Infection w/ associated Hematuria, failed outpatient treatment (nitrofurantoin, also caused notable diarrhea, subsided since discontinued): UA upon ED evaluation remarkable, pending UCx, monitor I/Os, continue IV Rocephin w/ transition as able pending sensitivities and spe ciation. Bld cx x 2 obtained in the ED. #3. Acute normocytic anemia, suspect Hematuria and Epistaxis as etiology with associated acute blood loss anemia in addition to #1 with overload status: Admis gabrielle hemoglobin 8.2, MCV 87.7, has decreased since 09/06/2023 hemoglobin 10.6--> 09/11/2023 hemoglobin 8.9, guaiac is negative, trend CBC, obtain type and screen already initiated per ED physician, maintain on PPI, will continue treatment of UTI as noted, defer any chemoprophylaxis. 2 unit PRBC ordered per ED thus we will continue to cautiously monitor for overload with pulse diuresis as able as noted. #4. Hypercalcemia, unclear etiology: Admission calcium 11.4 however albumin 2.4 thus corrected altered, will obtain PTH, ionized calcium, phosphorus, UCa levels as well as vitamin D (25-(OH)D, 1,25-(OH)2D), TSH/FT4 to further assess. Given presentation as noted administered IV lasix judiciously. #5. Mediastinal and bilateral hilar and axillary lymphadenopathy, unclear etiology: Continued evaluation as noted above, if pending treatment as noted, encourage outpatient follow-up to re-assess. #6. DVT prophylaxis: SCDs, defer any chemoprophylaxis given hematuria with acute blood loss anemia. #7. CODE status: Patient ASHLY is her who is present and living will is currently in place. Discussed CODE status at length including difference between FULL code, DNR-CCA and DNR-CC status. Following discussions about the differences in these status, requested DNR-CCA, no intubation status. Advanced Care Planning Face to Face Time: 16 minutes. Charges/Coding Visit Charges Inpatient E&M: 22115 Init Hosp L3 Procedures Hospitalists Procedures: 02428 Advncd Care Plan 30 Min
[2023-09-12] MEDS: Ceftriaxone 1 GM/50 ML BAG IV (22:16)
[2023-09-12 22:24] LABS: BNP,B-Type NATRIURETIC PEPTIDE 110.1 pg/mL (0-100)
[2023-09-12 22:56] LABS: Magnesium 2.3 mg/dL (1.6-2.6)
--- NOTE | 2023-09-12 23:21 | ECHOD_ITS ---
Reason For Study: CHF Procedure This was a 2D Doppler, Color Flow transthoracic echocardiogram. Exam performed portable in patient room. Left Ventricle Normal LV size. Left ventricular systolic function is hyperdynamic. The estimated ejection fraction is 70 %. Stage 1 diastolic dysfunction. No regional wall motion abnormalities noted. Right Ventricle Normal RV size. Normal systolic function. Atria Normal left atrium. Normal right atrium. Mitral Valve Normal mitral valve. Tricuspid Valve Normal tricuspid valve. Aortic Valve Normal aortic valve. Trisinus/trileaflet aortic valve. Pulmonic Valve Normal pulmonic valve. Great Vessels Normal aortic root. The pulmonary artery is normal size. Normal inferior vena cava. Pericardium/Pleural No pericardial effusion. MMode/2D Measurements & Calculations LVIDd: 4.2 cm IVSd: 1.2 cm Ao root diam: 3.6 cm LVIDs: 2.8 cm LVPWd: 1.1 cm FS: 34.4 % LAV(MOD-bp): 37.5 ml LVAd ap4: 26.0 cm2 SV(MOD-sp4): 61.2 ml LAV(MOD-bp) Indexed: 22.2 ml/m2 LVLd ap4: 6.9 cm LAV(MOD-sp2): 47.1 ml EDV(MOD-sp4): 85.1 ml LAV(MOD-sp4): 31.0 ml EDV(sp4-el): 82.8 ml LVAs ap4: 11.9 cm2 LVLs ap4: 4.9 cm ESV(MOD-sp4): 24.0 ml ESV(sp4-el): 24.4 ml EF(MOD-sp4): 71.9 % EF(sp4-el): 70.5 % SV(sp4-el): 58.4 ml LA A4 area: 14.1 cm2 LA dimension(2D): 3.2 cm RA A4 area: 15.2 cm2 TAPSE: 3.2 cm Time Measurements MV dec time: 0.20 sec Doppler Measurements & Calculations MV E max bereket: 86.4 cm/sec Lat Peak E' Bereket: 9.3 cm/sec Med Peak E' Bereket: 12.8 cm/sec MV A max bereket: 89.8 cm/sec E/E' lat: 9.3 E/E' med: 6.7 MV E/A: 0.96 MV V2 max: 110.2 cm/sec Ao V2 max: 183.9 cm/sec MV max P.9 mmHg MV dec slope: 442.3 cm/sec2 Ao max P.5 mmHg MV V2 mean: 75.1 cm/sec Ao V2 mean: 118.4 cm/sec MV mean P.5 mmHg Ao mean P.5 mmHg MV V2 VTI: 24.5 cm Ao V2 VTI: 31.2 cm AV (velocity ratio): 0.88 LV V1 max: 151.9 cm/sec PA V2 max: 114.2 cm/sec LV V1 max P.2 mmHg PA V2 mean: 83.5 cm/sec LV V1 mean P.9 mmHg LV V1 mean: 103.3 cm/sec LV V1 VTI: 27.5 cm ECHO/Echo Complete Interpretation Summary Normal LV size. Left ventricular systolic function is hyperdynamic. The estimated ejection fraction is 70 %. Stage 1 diastolic dysfunction. Ordering Physician: Joslyn Wagner Referring Physician: ROSCOE SCOTT Performed By: Kristie Woodard RCS
[2023-09-13] VITALS (11 sets, daily range): BP systolic 96–122; BP diastolic 49–62; PULSE 89–100; RESP 16–20; TEMP 36.6–37.4; O2SAT 93–96; BMI 21.9
[2023-09-13] MEDS: Furosemide 20 MG/2 ML VIAL IV ×2 (00:22→17:12)
[2023-09-13 01:10] LABS: Troponin-I HS 6 pg/mL (3.0-54.0)
[2023-09-13 01:21] LABS: Phosphorus 3.5 mg/dL (2.5-4.9)
[2023-09-13 03:11] LABS: Troponin-I HS 7 pg/mL (3.0-54.0)
--- NOTE | 2023-09-13 06:34 | CT_ITS ---
INDICATION: Hematuria EXAMINATION: CT ABDOMEN AND PELVIS WITHOUT CONTRAST TECHNIQUE: Helically acquired images were obtained of the abdomen and pelvis without oral or IV contrast. A radiation dose optimization technique was used for this scan. IV Contrast dosage and agent: None. Oral contrast: None. RADIATION DOSAGE (If Supplied By Facility): CTDIvol = ( 6.21 ) mGy, DLP = ( 307.17 ) mGycm COMPARISON: CTA of the chest of 09/12/2023 FINDINGS: LOWER CHEST: Small bilateral pleural effusions larger on the right side. Compressive atelectatic changes in both lower lobes. Prominence of the pulmonary vasculature. No cardiomegaly or pericardial effusion. LIVER: Cardiomegaly. No focal lesion is seen without contrast. GALLBLADDER AND BILIARY TREE: Multiple gallstones. No gallbladder distension or wall edema. No intra- or extrahepatic biliary ductal dilation. PANCREAS: No focal cystic or solid mass is seen without contrast. SPLEEN: Markedly enlarged measuring about 17 cm in length. ADRENAL GLANDS: No nodules. KIDNEYS AND URETERS: Normal renal size and position. Residual contrast from previous contrast study in the pelvicalyceal systems. No evidence of hydronephrosis. PERITONEUM: Trace of ascites lateral to the liver. No other fluid collection. BOWEL: The appendix is not definitely identified. Right lower quadrant calcification could reflect appendicoliths. No stomach or bowel distension. Diverticulosis without evidence of acute diverticulitis. LYMPH NODES: Retroperitoneal nodes predominantly in the left periaortic region, the largest measures about 1.3 cm and scattered mesenteric nodes difficult to accurately evaluate without contrast. VESSELS: Tortuosity of the abdominal aorta without evidence of aneurysm. URINARY BLADDER: Unremarkable. REPRODUCTIVE ORGANS: Slightly prominent uterus. Free fluid in the pelvis. Fluid density superior to the bladder and uterus likely representing part of the free fluid. Correlation with pelvic ultrasound is recommended. ABDOMINAL WALL: No discrete abdominal or pelvic wall hernia. BONES: No lytic or blastic abnormality. CT/Abdomen/Pelvis without Cont IMPRESSION: 1. Hepatosplenomegaly. 2. Cholelithiasis. 3. Trace of free fluid lateral to the liver and free fluid in the pelvis. Correlation with pelvic ultrasound is recommended. 4. Retroperitoneal nodes could be reactive. 5. Diverticulosis without evidence of acute diverticulitis. 6. Small bilateral pleural effusions and mild atelectatic changes in the lower lungs Electronically Signed: Rolando Clark MD at 9:08 EDT ,
--- NOTE | 2023-09-13 07:09 | CON.PCM.CA_ITS ---
Assessment & Plan Assessment/Plan (1) SOB (shortness of breath): PLAN: The etiology of the above is not entirely clear but is likely mult ifactorial. I would like us to obtain the echocardiogram which was being scheduled for as an outpatient. She is anemic and I have asked the hospitalist after discussing to run further tests for further evaluation. She will also be monitored overnight to make sure that they are no arrhythmias. Depending on the results of the echocardiogram further recommendations will be made. The above has been discussed with the patient and her they understand and are in agreement. Addendum: The left ventricular ejection fraction by echocardiogram is normal with no valvular abnormalities. Her EKG is also normal. At this point in time I do not think that there is any acute cardiac issue going on. Will sign off and please reconsult as necessary. Thank you for allowing me to participate in the care of your patient. Please don't hesitate to call if any issues arise. HPI Consult Data Date of Consult: 09/13/23 HPI Narrative HPI Narrative: KIM PRINGLE, is a 73 F who presents back to the emergency room with generalized weakness and hematuria. She has no previous cardiac history who according to her is a hyper achiever. [facility] few days [facility] with hematuria. She was diagnosed as having a urinary tra ct infection and started on nitrofurantoin. She thinks that her heart rate was also noted to be elevated but an EKG was not done. She followed up the next day with your office and an EKG demonstrated evidence of sinus tachycardia with a rate of 102 bpm. She was referred to the [place] and her daughter was going to make a call but as the patient was not feeling well she was sent to the emergency room where she was evaluated with blood work and a CT scan of her chest. It demonstrated no evidence of pulmonary embolism and she was asked to complete her antibiotic course. She was seen in the office and she was noted to be anemic and a series of tests ordered. I spoke to her primary physician Dr. Teixeira about the possible further investigations including a GI workup as I thought her BUN was elevated and she was anemic. She however was not feeling well and presented back to the emergency room and was transfused with 2 units of packed red blood cells and cardiology was called for further evaluation and management. At this time she appears to be stable. Her blood work is pending. Her electrocardiogram demonstrates sinus rhythm with a rate of 92 bpm. An echocardiogram is pending today. [facility] Medical History Irregular heart beat Home Medications ascorbic acid (vitamin C) 500 mg tablet 500 mg PO DAILY 09/11/23 [History Last Taken Unknown] Allergy/AdvReac Type Severity Reaction Status Date / Time sulfamethoxazole Allergy Angioedema Verified 09/12/23 17:34 [From Bactrim] trimethoprim [From Bactrim] Allergy Angioedema Verified 09/12/23 17:34 nitrofurantoin AdvReac Diarrhea Verified 09/12/23 17:34 [From Macrobid] Family History Mother Diabetes Father MVA (motor vehicle accident) in MVA when he was younger, no medical history reported prior to this. Surgical History History of appendectomy Social History household members: spouse Smoking Status: Never smoker alcohol intake: never substance use type: does not use caffeine: Yes Type: carbonated beverages Number of servings: 3 ROS Constitutional Constitutional: Denies fever(s) or weight loss Eyes Eyes: Reports systems reviewed and no addt'l complaints, except as documented ENT HEENT: Reports systems reviewed and no addt'l complaints, except as documented Cardiovascular Cardiovascular: Reports dyspnea at rest, dyspnea on exertion and palpitations; Denies chest pain at rest, chest pain with activity, edema or paroxysmal nocturnal dyspnea Respiratory/Chest Respiratory/Chest: Denies dyspnea on exertion, productive cough, shortness of breath at rest or shortness of breath with exertion Gastrointestinal Gastrointestinal: Denies change in bowel habits, nausea, vomiting or weight changes Genitourinary Genitourinary: Denies difficulty urinating Musculoskeletal Musculoskeletal: Denies joint stiffness or muscle weakness Integumentary Integumentary: Denies lesions Neurologic Neurologic: Denies dizziness or syncope Psychiatric Psychiatric: Denies anxiety Endocrine Endocrinology: Denies excessive sweating or fatigue Hematologic/Lymphatic Hematologic/Lymphatic: Denies anemia Allergic/Immunologic Allergic/Immunologic: Denies seasonal rhinorrhea Physical Exam Const alert, oriented x3 and no apparent distress General Appearance: cooperative HEENT hearing grossly normal bilaterally Head and Scalp: atraumatic Eyes EOMs intact bilaterally Neck General: normal visual inspection Chest inspection of chest normal and palpation of chest normal Resp normal respiratory effort Auscultation: clear to auscultation bilaterally Cardio regular rate, regular rhythm, S1 normal heart sound and S2 normal heart sound Jugular Venous Distention: JVD GI normal to inspection, nondistended, normoactive bowel sounds Extremity normal capillary refill and no pedal edema Peripheral Pulses: Yes pulses 2+ throughout and femoral pulses present Skin no rashes or lesions noted Neuro oriented x3 and CN's II-XII intact bilaterally Psych Appearance: grossly normal and appropriate Risk Stratification Risk Stratification Applicable: No Objective Data Vital Signs: Vital Signs Temp Pulse Resp BP Pulse Ox O2 Del Method O2 Flow Rate 98 F 89 16 108/62 95 Nasal Cannula 2 09/13/23 04:29 09/13/23 04:29 09/13/23 04:29 09/13/23 04:29 09/13/23 04:29 09/13/23 04:29 09/13/23 04:29 Oxygen Flow Rate (L/min) 2 Oxygen Delivery Method Nasal Cannula Weight: 134 lb 7.712 oz Body Mass Index (BMI) 21.7 Intake & Output: Intake and Output for Last 24 Hours 09/11/23 09/12/23 09/13/23 23:59 23:59 23:59 Intake Total 1050 / 1050 241 / 241 Balance 1050 / 1050 241 / 241 Lab / Micro Data 09/13/23 06:50 09/13/23 06:50 Labs: Laboratory Results - last 24 hr 09/12/23 18:05: WBC 11.6 H, RBC 2.84 L, Hgb 8.2 L, Hct 24.9 L, MCV 87.7, MCH 28.9, MCHC 32.9, RDW Std Deviation 43.3, RDW Coeff of Alex 13.7, Plt Count 122 L, MPV 10.1, Immature Gran % (Auto) 1.500 H, Neut % (Auto) 79.2 H, Lymph % (Auto) 10.5 L, [place] % (Auto) 6.0, Eos % (Auto) 2.3, Baso % (Auto) 0.5, Absolute Neuts (auto) 9.2 H, Absolute Lymphs (auto) 1.22, Nucleated RBC % 0, Atypical Lymphocytes 1+, Platelet Estimate SLT DEC, RBC Morphology N CHROM, Anisocytosis RARE, Sodium 139, Potassium 3.7, Chloride 105, Carbon Dioxide 29.0, Anion Gap 5, BUN 39 H, Creatinine 1.02, Estim Creat Clear Calc 45.30, Est GFR (MDRD) Af Amer 68, Est GFR (MDRD) Non-Af 56 L, BUN/Creatinine Ratio 38.2 H, Glucose 113 H, Calcium 11.4 H, Magnesium 2.3, Total Bilirubin 1.10 H, AST 13 L, ALT 12 L, Alkaline Phosphatase 63, Troponin I High Sens 7, Total Protein 6.4, Albumin 2.4 L, Globulin 4.0, Albumin/Globulin Ratio 0.6 L, Blood Type A POSITIVE, Antibody Screen NEGATIVE, Crossmatch See Detail 09/12/23 21:00: Urine Color Yellow, Urine Clarity Sl. Cloudy, Urine pH 5.0, Ur Specific [place] 1.025, Urine Protein 15 H, Urine Glucose (UA) Normal, Urine Ketones 5 H, Urine Occult Blood 10 H, Urine Nitrite Positive H, Urine Bilirubin Negative, Urine Urobilinogen Normal, Ur Leukocyte Esterase 100 H, Urine RBC 0-5 SEEN, Urine WBC 5-10 SEEN, Ur Squamous Epith Cells 0-5 SEEN, Amorphous Sediment 1+ URATE, Urine Bacteria 3+, Urine Mucus 0 SEEN 09/12/23 21:49: B-Natriuretic Peptide 110.1 H 09/13/23 00:35: Phosphorus 3.5, Troponin I High Sens 6 09/13/23 02:35: Troponin I High Sens 7 Micro: Microbiology 09/12/23 18:05 Stool Stool Occult Blood (MENDOZA) - Final Cardiology Labs/Tests 09/12/23 18:05: WBC 11.6 H, RBC 2.84 L, Hgb 8.2 L, Hct 24.9 L, MCV 87.7, MCH 28.9, MCHC 32.9, Plt Count 122 L, MPV 10.1, Immature Gran % (Auto) 1.500 H, Neut % (Auto) 79.2 H, Lymph % (Auto) 10.5 L, [place] % (Auto) 6.0, Eos % (Auto) 2.3, Baso % (Auto) 0.5, Absolute Neuts (auto) 9.2 H, Nucleated RBC % 0, Sodium 139, Potassium 3.7, Chloride 105, Carbon Dioxide 29.0, Anion Gap 5, BUN 39 H, Creatinine 1.02, Est GFR (MDRD) Af Amer 68, Est GFR (MDRD) Non-Af 56 L, BUN/Creatinine Ratio 38.2 H, Glucose 113 H, Calcium 11.4 H, Magnesium 2.3, Total Bilirubin 1.10 H 09/12/23 21:00: Urine Color Yellow, Urine Clarity Sl. Cloudy, Urine pH 5.0, Ur Specific [place] 1.025, Urine Protein 15 H, Urine Glucose (UA) Normal, Urine Ketones 5 H, Urine Occult Blood 10 H, Urine Nitrite Positive H, Urine Bilirubin Negative, Urine Urobilinogen Normal, Ur Leukocyte Esterase 100 H, Urine RBC 0-5 SEEN, Urine WBC 5-10 SEEN 09/12/23 21:49: B-Natriuretic Peptide 110.1 H 09/13/23 00:35: Phosphorus 3.5 Rhythm: EKG: ECHO: Stress Test: Cardiac Cath: PCI: CT Surgery: Holter monitor: EPS: PPM: CXR: Chest CT Scan: Radiography Diagnostic Testing: Radiology Impression Chest X-Ray 09/12/23 18:48 IMPRESSION: Worsening aeration of the lungs. Otherwise, no change from prior study. Electronically Signed: Medhat Glass MD at 19:54 EDT , Chest CTA 09/12/23 19:03 IMPRESSION: No evidence of acute pulmonary emboli to the segmental level. Redemonstration of mediastinal and bilateral hilar and axillary lymphadenopathy. Cardiomegaly with interstitial edema and small bilateral pleural effusions. Electronically Signed: Medhat Glass MD at 21:31 EDT ,
[2023-09-13 07:13] LABS: Absolute Lymphocyte Count 1.27 X10^3/uL (0.83-4.51); Absolute Neutrophil Count 8.5 X10^3/uL (2.0-7.7); Basophil# 0.08 X10^3/uL; Basophil% 0.7 % (0-1); Eosinophil# 0.31 X10^3/uL; Eosinophils% 2.9 % (0-5); Hematocrit 27.2 % (37-47); Lymphocyte # 1.27 X10^3/ul (0.83-4.51); Lymphocyte % 11.7 % (19-41); Mean Corp Hgb Conc 33.1 g/dL (32-36); Mean Corpuscular Hgb 29.6 pg (27.0-32.0); Mean Corpuscular Volume 89.5 fL (81-99); Monocyte% 5.5 % (0-10); NRBC Flagged by Analyzer 0 % (0-5); Neutrophil # 8.45 X10^3/uL (2.7-7.7); Neutrophil % 77.7 % (47-70); POSITIVE MORPHOLOGY YES; Platelet Count 134 K/mm3 (150-450); RBC Distribution Width CV 14.5 % (11.6-14.6); RBC Distribution Width SD 45.3 fl (35.1-43.9); Red Blood Count 3.04 M/mm3 (4.2-5.4); White Blood Count 10.9 K/mm3 (4.4-11.0)
[2023-09-13 07:18] LABS: Differential Indicated SCAN CRITERIA MET
[2023-09-13 07:20] LABS: Ionized Calcium 5.94 mg/dL (4.36-5.20)
[2023-09-13 07:50] LABS: Ferritin 433 ng/mL (8-252); Iron 96 ug/dL (50-170); Iron Binding Capacity,Total 193 ug/dL (250-450); PERCENT IRON SATURATION 49.7 % (15.0-55.0)
[2023-09-13 07:51] LABS: ALB/GLOB Ratio 0.6 RATIO (0.9-2.4); AST(SGOT) 12 U/L (15-37); Alanine Aminotransfer ALT/SGPT 12 U/L (13-56); Albumin, Serum 2.2 g/dL (3.2-5.0); Alkaline Phosphatase 59 U/L (45-117); Anion Gap 6 (5-15); BUN 37 mg/dL (7-18); BUN/Creat Ratio 37.8 RATIO (10-20); Calcium,Total 10.9 mg/dL (8.5-10.1); Chloride 107 mmol/L (98-107); Cholesterol 61 mg/dL (200); Creatinine, Serum 0.98 mg/dL (0.55-1.02); EST Glomerular Filtration Rate 59 mL/min (>60); Est Glom Filt Rate - Afr Amer 71 mL/min (>60); Estimated Creatinine Clearance 47.15 ml/min; Globulin 3.9 g/dL (2.2-4.2); Glucose 98 mg/dL (74-106); High Density Lipoprotein 19 mg/dL; Potassium 3.8 mmol/L (3.5-5.1); Protein, Total 6.1 g/dL (6.4-8.2); Sodium Level 141 mmol/L (136-145); T4 Free Direct 1.11 ng/dL (0.76-1.46); Thyroid Stim Hormone (TSH) 7.26 uIU/mL (0.358-3.74); Triglycerides 148 mg/dL; Troponin-I HS 7 pg/mL (3.0-54.0); Very Low Density Lipoprotein 30 mg/dL (5-40)
[2023-09-13 08:55] LABS: Reactive Lymphocyte 1+
[2023-09-13 09:32] LABS: Vitamin D,25 Hydroxy 82.2 ng/mL
--- NOTE | 2023-09-13 10:10 | CASEMGMT ---
ROSELYN LIRA Face to Face with patient for initial transition planning/care coordination assessment. ROSELYN LIRA introduced self and role at [facility]. Patient lying in bed, alert and oriented, family at bedside. Patient willing to participate in assessment and is able to answer all questions appropriately. Care providers, pharmacy, and demographics verified. PCP: [facility] Specialists: Suad, jointer machine Preferred Pharmacy: [facility] Insurance: [employer] Prescription Benefit: none Living Will/HPOA: yes, Tomas Maria Guadalupe LNOK: , daughter in law, daughter Living Arrangements: Patient lives with in a single story duplex, with daughter in law living next door. 3 steps and railing to enter the home. Patient is normally independent at home. Transportation: self, , family DME/HHC: Patient has shower chair, grab bars, walker, pulse ox, and personal concentrator with no portability. RN PANKAJ discussed possible need for portability at discharge and prefers [employer] for setup. No previous HHC or SNF. Patient wishes to discharge home, denies need for home health at this time. Family states they can assist with ADLs at home, interested in exercise handouts, therapy notified. Patient states she has no further needs or concerns at this time. CM to follow for discharge planning needs that may arise. Disposition Plan: Patient to discharge home with family support and follow-up plans in place. Will monitor for home oxygen. Madyson ANTUNEZ, RN, CM
--- NOTE | 2023-09-13 10:26 | PN.HOSP_ITS ---
Subjective Subjective Doing well, she states that she has had a 10 to 15 pound weight loss since the beginning of July and that the hematuria started about 2 weeks ago when she had her initial diagnosis of UTI with E. coli. Feels about the same as when she came in initially Objective Data Objective Data Vital Signs: Vital Signs Temp Pulse Resp BP Pulse Ox O2 Del Method O2 Flow Rate 98.6 F 98 18 96/49 L 94 Nasal Cannula 2 09/13/23 09:30 09/13/23 09:30 09/13/23 09:30 09/13/23 09:30 09/13/23 09:30 09/13/23 09:30 09/13/23 07:59 Oxygen Flow Rate (L/min) 2 Oxygen Delivery Method Nasal Cannula Weight: 134 lb 7.712 oz Body Mass Index (BMI) 21.7 Intake & Output: Intake and Output for Last 24 Hours 09/12/23 09/13/23 09/14/23 03:59 03:59 03:59 Intake Total 1051 / 1051 240 / 240 Balance 1051 / 1051 240 / 240 Lab / Micro Data 09/13/23 06:50 09/13/23 06:50 Labs: Laboratory Results - last 24 hr 09/12/23 18:05: WBC 11.6 H, RBC 2.84 L, Hgb 8.2 L, Hct 24.9 L, MCV 87.7, MCH 28.9, MCHC 32.9, RDW Std Deviation 43.3, RDW Coeff of Alex 13.7, Plt Count 122 L, MPV 10.1, Immature Gran % (Auto) 1.500 H, Neut % (Auto) 79.2 H, Lymph % (Auto) 10.5 L, [place] % (Auto) 6.0, Eos % (Auto) 2.3, Baso % (Auto) 0.5, Absolute Neuts (auto) 9.2 H, Absolute Lymphs (auto) 1.22, Nucleated RBC % 0, Atypical Lymphocytes 1+, Platelet Estimate SLT DEC, RBC Morphology N CHROM, Anisocytosis RARE, Sodium 139, Potassium 3.7, Chloride 105, Carbon Dioxide 29.0, Anion Gap 5, BUN 39 H, Creatinine 1.02, Estim Creat Clear Calc 45.30, Est GFR (MDRD) Af Amer 68, Est GFR (MDRD) Non-Af 56 L, BUN/Creatinine Ratio 38.2 H, Glucose 113 H, Calcium 11.4 H, Magnesium 2.3, Total Bilirubin 1.10 H, AST 13 L, ALT 12 L, Alkaline Phosphatase 63, Troponin I High Sens 7, Total Protein 6.4, Albumin 2.4 L, Globulin 4.0, Albumin/Globulin Ratio 0.6 L, Blood Type A POSITIVE, Antibody Screen NEGATIVE, Crossmatch See Detail 09/12/23 21:00: Urine Color Yellow, Urine Clarity Sl. Cloudy, Urine pH 5.0, Ur Specific [place] 1.025, Urine Protein 15 H, Urine Glucose (UA) Normal, Urine Ketones 5 H, Urine Occult Blood 10 H, Urine Nitrite Positive H, Urine Bilirubin Negative, Urine Urobilinogen Normal, Ur Leukocyte Esterase 100 H, Urine RBC 0-5 SEEN, Urine WBC 5-10 SEEN, Ur Squamous Epith Cells 0-5 SEEN, Amorphous Sediment 1+ URATE, Urine Bacteria 3+, Urine Mucus 0 SEEN 09/12/23 21:49: B-Natriuretic Peptide 110.1 H 09/13/23 00:35: Phosphorus 3.5, Troponin I High Sens 6 09/13/23 02:35: Troponin I High Sens 7 09/13/23 06:50: WBC 10.9, RBC 3.04 L, Hgb 9.0 L, Hct 27.2 L, MCV 89.5, MCH 29.6, MCHC 33.1, RDW Std Deviation 45.3 H, RDW Coeff of Alex 14.5, Plt Count 134 L, MPV 10.0, Immature Gran % (Auto) 1.500 H, Neut % (Auto) 77.7 H, Lymph % (Auto) 11.7 L, [place] % (Auto) 5.5, Eos % (Auto) 2.9, Baso % (Auto) 0.7, Absolute Neuts (auto) 8.5 H, Absolute Lymphs (auto) 1.27, Nucleated RBC % 0, Reactive Lymphocytes 1+, Sodium 141, Potassium 3.8, Chloride 107, Carbon Dioxide 28.0, Anion Gap 6, BUN 37 H, Creatinine 0.98, Estim Creat Clear Calc 47.15, Est GFR (MDRD) Af Amer 71, Est GFR (MDRD) Non-Af 59 L, BUN/Creatinine Ratio 37.8 H, Glucose 98, Calcium 10.9 H, Iron 96, TIBC 193 L, Iron Saturation 49.7, Ferritin 433 H, Total Bilirubin 0.80, AST 12 L, ALT 12 L, Alkaline Phosphatase 59, Troponin I High Sens 7, Total Protein 6.1 L, Albumin 2.2 L, Globulin 3.9, Albumin/Globulin Ratio 0.6 L, Triglycerides 148, Cholesterol 61, LDL Cholesterol 12, VLDL Cholesterol 30, HDL Cholesterol 19 L, Vitamin D 25-Hydroxy 82.2, TSH 7.26 H, Free T4 1.11, PTH Intact 3.9 L 09/13/23 07:16: Ionized Calcium 5.94 H Micro: Microbiology 09/12/23 18:05 Stool Stool Occult Blood ([place]ENDOZA) - Final Radiography Diagnostic Testing: Radiology Impression Chest X-Ray 09/12/23 18:48 IMPRESSION: Worsening aeration of the lungs. Otherwise, no change from prior study. Electronically Signed: Medhat Glass MD at 19:54 EDT , Chest CTA 09/12/23 19:03 IMPRESSION: No evidence of acute pulmonary emboli to the segmental level. Redemonstration of mediastinal and bilateral hilar and axillary lymphadenopathy. Cardiomegaly with interstitial edema and small bilateral pleural effusions. Electronically Signed: Medhat Glass MD at 21:31 EDT , Abdomen/Pelvis CT 09/13/23 06:34 IMPRESSION: 1. Hepatosplenomegaly. 2. Cholelithiasis. 3. Trace of free fluid lateral to the liver and free fluid in the pelvis. Correlation with pelvic ultrasound is recommended. 4. Retroperitoneal nodes could be reactive. 5. Diverticulosis without evidence of acute diverticulitis. 6. Small bilateral pleural effusions and mild atelectatic changes in the lower lungs Electronically Signed: Rolando Clark MD at 9:08 EDT , Physical Exam Narrative General: Alert, Oriented x3, Cooperative, No apparent distress HEENT: Atraumatic, PERRLA, EOMI, Normocephalic Oral: Moist Mucosa Neck: Supple, No JVD Lungs: Diminished, Normal air movement, No rhonchi, No wheeze, No rales Cardiovascular: Regular rate, Regular Rhythm, Normal S1, Normal S2, No murmurs Abdomen: Soft, Non Tender, Non-Distended, No Hepato-splenomegaly Extremities: No edema, Capillary Refill Less than 3 Seconds Skin: No rashes, No breakdown Musculoskeletal: No Tenderness to Palpation of Joints or Extremities Neurological: No focal neurological deficits, Motor Exam 5/5 strength throughout, Sensory exam intact to light touch and pain Psych/Mental Status: Normal Affect, Appropriate Assessment & Plan Assessment/Plan (1) UTI (urinary tract infection): PLAN: Plan 1. Acute hypoxia from unclear etiology/hypercalcemia/normocytic normochromic anemia ? Initial BNP was normal and then after IV fluids repeat BMP was slightly elevated I do not think that heart failure is a major component ? Echo with an EF of 70% and stage I diastolic dysfunction which is not abnormal for age ? Her history is a bit more complicated as she says that she has had a 10 to 15 pound unintentional weight loss since July she has hilar lymphadenopathy on her CT of the chest as well as retroperitoneal lymphadenopathy in her abdomen unfortunately the CT scan was noncontrasted so it does not provide a great picture at this time ? PTH is appropriately suppressed given her hypercalcemia indicating her hyperc alcemia is from another cause given the anemia as well as the hypercalcemia and on admission her slight elevation in creatinine multiple myeloma is a possibility however total protein is low, may need to get an SPEP/UPEP for further evaluation. No obvious solid tumors in her abdomen or in her lungs. She denies a history of sarcoidosis or autoimmune diseases in her family ? She has a sister and niece with a history of breast cancer but otherwise it does not appear that cancer is a major family history ? TSH is slightly elevated to 7 2. Acute UTI ? She does have hematuria which may be related to the UTI or could be a diagnostic clue for possible oncologic process ? Continue with Rocephin while pending urine cultures ? Previous urine culture was a pansensitive E. coli ? Blood cultures are also pending DVT: SCDs Charges/Coding Visit Charges Inpatient E&M: 21041 Subs Hosp L2
--- NOTE | 2023-09-13 12:50 | CASEMGMT ---
ROSELYN LIRA updated by therapy that patient would benefit from SNF at discharge. Per Elif PT, [facility] ROSELYN LIRA updated SW.
--- NOTE | 2023-09-13 14:12 | CASEMGMT ---
Discharge Planning [facility] Lisa Arthur, Discharge Planning Asst.
[2023-09-13 14:57] LABS: LDH 231 U/L (84-246)
--- NOTE | 2023-09-13 16:21 | CASEMGMT ---
Discharge Planning [facility] has accepted patient. SW updated. Lisa Arthur, Discharge Planning Asst.
--- NOTE | 2023-09-13 16:24 | CASEMGMT ---
[facility] ([facility]) accepted patient. SW notified family. Plan: d/c to [facility] under skilled level of care. Ludivina Salmeron MSW IRENA
[2023-09-13] MEDS: 0.9% Saline Lock 10 ML Syringe IV (17:11)
[2023-09-13 18:48] LABS: Calcium, Urine (Random) 28.5 mg/dL (Not Estab.)
[2023-09-13] MEDS: Ceftriaxone 1 GM/50 ML BAG IV (20:43)
[2023-09-14] VITALS (9 sets, daily range): BP systolic 99–109; BP diastolic 45–55; PULSE 89–106; RESP 16–18; TEMP 36.7–37.3; O2SAT 87–97; BMI 21.6
[2023-09-14 08:29] LABS: Anion Gap 4 (5-15); BUN 40 mg/dL (7-18); BUN/Creat Ratio 39.2 RATIO (10-20); Calcium,Total 11.8 mg/dL (8.5-10.1); Chloride 109 mmol/L (98-107); Creatinine, Serum 1.02 mg/dL (0.55-1.02); EST Glomerular Filtration Rate 56 mL/min (>60); Est Glom Filt Rate - Afr Amer 68 mL/min (>60); Glucose 102 mg/dL (74-106); Potassium 3.6 mmol/L (3.5-5.1); Sodium Level 143 mmol/L (136-145)
[2023-09-14] MEDS: Furosemide 20 MG/2 ML VIAL IV (09:40)
--- NOTE | 2023-09-14 11:09 | PN.HOSP_ITS ---
Subjective Subjective Feels little bit better, remains stable on her 2 L nasal cannula Objective Data Objective Data Vital Signs: Vital Signs Temp Pulse Resp BP Pulse Ox O2 Del Method O2 Flow Rate 98.1 F 106 H 16 109/50 L 87 Nasal Cannula 2 09/14/23 09:36 09/14/23 09:36 09/14/23 09:36 09/14/23 09:36 09/14/23 09:36 09/14/23 09:36 09/14/23 09:36 Oxygen Flow Rate (L/min) 2 Oxygen Delivery Method Nasal Cannula Weight: 134 lb 7.712 oz Body Mass Index (BMI) 21.6 Intake & Output: Intake and Output for Last 24 Hours 09/13/23 09/14/23 09/15/23 03:59 03:59 03:59 Intake Total 1051 / 1051 1090 / 1090 240 / 240 Output Total 100 / 100 Balance 1051 / 1051 990 / 990 240 / 240 Medical Nutrition Assessment Dietitian: Malnutrition Criteria Met Start: 09/13/23 13:57 Freq: Status: Active Protocol: Document 09/13/23 13:57 AG (Rec: 09/13/23 13:57 AG [id number]) Nutrition Malnutrition Evidence of Malnutrition Exists Yes Malnutrition (severe): Chronic Evidenced By Suboptimal Energy Intake ( Severe),Weight Loss (Severe) Clinical Problem Chronic Disease or Condition Related Malnutrition Etiology severe, chronic malnutrition related to inadequate energy intake Signs/Symptoms as evidenced by unintentional 10% wt loss < 3 months, estimated PO intake meeting < 75% of estimated energy needs x 3 months, worsened to <50% of estimated needs over past 2 -3 weeks Status Active Problem Recommendation Dietitian Recommendations/Changes Continue cardiac diet as tolerated; will add ensure compact TID w/ meals for additional nutrition if consumed. Will monitor need for liberalized diet pending intake/appetite and acceptance of ONS. Lab / Micro Data 09/13/23 06:50 09/14/23 07:55 Labs: Laboratory Results - last 24 hr 09/13/23 14:14: Lactate Dehydrogenase 231 09/13/23 17:37: Ur Random Calcium 28.5 09/14/23 07:55: Sodium 143, Potassium 3.6, Chloride 109 H, Carbon Dioxide 30.0, Anion Gap 4 L, BUN 40 H, Creatinine 1.02, Estim Creat Clear Calc 45.30, Est GFR (MDRD) Af Amer 68, Est GFR (MDRD) Non-Af 56 L, BUN/Creatinine Ratio 39.2 H, Glucose 102, Calcium 11.8 H Micro: Microbiology 09/12/23 21:52 Urine, Clean Catch Urine Culture - Final Presumptive E. coli 09/12/23 18:05 Stool Stool Occult Blood (MENDOZA) - Final Physical Exam Narrative General: Alert, Oriented x3, Cooperative, No apparent distress HEENT: Atraumatic, PERRLA, EOMI, Normocephalic Oral: Moist Mucosa Neck: Supple, No JVD Lungs: Diminished, Normal air movement, No rhonchi, No wheeze, No rales Cardiovascular: Regular rate, Regular Rhythm, Normal S1, Normal S2, No murmurs Abdomen: Soft, Non Tender, Non-Distended, No Hepato-splenomegaly Extremities: No edema, Capillary Refill Less than 3 Seconds Skin: No rashes, No breakdown Musculoskeletal: No Tenderness to Palpation of Joints or Extremities Neurological: No focal neurological deficits, Motor Exam 5/5 strength throughout, Sensory exam intact to light touch and pain Psych/Mental Status: Normal Affect, Appropriate Assessment & Plan Assessment/Plan (1) UTI (urinary tract infection): PLAN: Plan 1. Acute hypoxia from unclear etiology hepatosplenomegaly/hypercalcemia/normocytic normochromic anemia ? Initial BNP was normal and then after IV fluids repeat BMP was slightly elevat ed I do not think that heart failure is a major component ? Echo with an EF of 70% and stage I diastolic dysfunction which is not abnormal for age ? Her history is a bit more complicated as she says that she has had a 10 to 15 pound unintentional weight loss since July she has hilar lymphadenopathy on her CT of the chest as well as retroperitoneal lymphadenopathy in her abdomen unfortunately the CT scan was noncontrasted so it does not provide a great picture at this time ? PTH is appropriately suppressed given her hypercalcemia indicating her hypercalcemia is from another cause given the anemia as well as the hypercalcemia and on admission her slight elevation in creatinine multiple mye prudencio is a possibility however total protein is low, may need to get an SPEP/UPEP for further evaluation. No obvious solid tumors in her abdomen or in her lungs. She denies a history of sarcoidosis or autoimmune diseases in her family ? She has a sister and niece with a history of breast cancer but otherwise it does not appear that cancer is a major family history ? TSH is slightly elevated to 7 ? Flow cytometry as well as an SPEP with immunofixation are pending 2. Acute UTI with pansensitive E. coli ? Urine culture with pansensitive E. coli ? Continue with Rocephin DVT: SCDs Charges/Coding Visit Charges Inpatient E&M: 78510 Subs Hosp L2
[2023-09-14] MEDS: 0.9% Normal Saline (1000mL) 1,000 ML 75 ML IV (15:22)
[2023-09-14 15:31] LABS: Hematocrit 26.1 % (37-47); Hemoglobin 8.5 g/dL (12.0-15.0)
--- NOTE | 2023-09-14 17:03 | CASEMGMT ---
Social Work Vannesa from [facility] called to inquire when pt will be discharged, SW let her know it is anticipated tomorrow. ALVARO Arciniega
[2023-09-14] MEDS: Ceftriaxone 1 GM/50 ML BAG IV (20:14)
[2023-09-15] MEDS: 0.9% Normal Saline (1000mL) 1,000 ML 75 ML IV (02:48)
[2023-09-15 04:39] VITALS: BP 101/50; PULSE 87; RESP 16; TEMP 37.2; O2SAT 96
[2023-09-15 06:00] VITALS: BMI 21.2
[2023-09-15 06:53] LABS: Absolute Lymphocyte Count 1.58 X10^3/uL (0.83-4.51); Absolute Neutrophil Count 6.9 X10^3/uL (2.0-7.7); Basophil# 0.07 X10^3/uL; Basophil% 0.7 % (0-1); Eosinophil# 0.36 X10^3/uL; Eosinophils% 3.7 % (0-5); Hematocrit 26.2 % (37-47); Hemoglobin 8.5 g/dL (12.0-15.0); Lymphocyte # 1.58 X10^3/ul (0.83-4.51); Lymphocyte % 16.4 % (19-41); Mean Corp Hgb Conc 32.4 g/dL (32-36); Mean Corpuscular Hgb 29.1 pg (27.0-32.0); Mean Corpuscular Volume 89.7 fL (81-99); Mean Platelet Vol. 9.9 fl (6.2-12.0); Monocyte# 0.58 X10^3/uL; NRBC Flagged by Analyzer 0 % (0-5); Neutrophil # 6.94 X10^3/uL (2.7-7.7); Neutrophil % 72.1 % (47-70); POSITIVE MORPHOLOGY YES; Platelet Count 136 K/mm3 (150-450); RBC Distribution Width CV 14.4 % (11.6-14.6); RBC Distribution Width SD 45.7 fl (35.1-43.9); Red Blood Count 2.92 M/mm3 (4.2-5.4); White Blood Count 9.6 K/mm3 (4.4-11.0)
[2023-09-15 07:00] LABS: Differential Indicated SCAN CRITERIA MET
[2023-09-15 07:05] LABS: Anion Gap 3 (5-15); BUN 39 mg/dL (7-18); BUN/Creat Ratio 35.1 RATIO (10-20); Calcium,Total 12.1 mg/dL (8.5-10.1); Chloride 111 mmol/L (98-107); Creatinine, Serum 1.11 mg/dL (0.55-1.02); EST Glomerular Filtration Rate 51 mL/min (>60); Est Glom Filt Rate - Afr Amer 62 mL/min (>60); Estimated Creatinine Clearance 41.63 ml/min; Glucose 103 mg/dL (74-106); Potassium 3.9 mmol/L (3.5-5.1); Sodium Level 143 mmol/L (136-145)
[2023-09-15 07:25] LABS: Differential Comment SCANNED
[2023-09-15 08:18] VITALS: O2SAT 95
[2023-09-15 09:07] VITALS: BP 111/60; PULSE 97; RESP 14; TEMP 36.8; O2SAT 94
[2023-09-15 09:32] LABS: Free T3 0.7 pg/mL (2.18-3.98)
[2023-09-15] MEDS: Levothyroxine 50 MCG Tablet PO (09:50)
[2023-09-15] MEDS: Pamidronate Disodium 60 MG in 0.9% Normal Saline (500mL Bag) 500 ML 250 MG IV (09:52)
[2023-09-15 10:59] VITALS: BP 111/60; PULSE 97; RESP 14; TEMP 36.8; O2SAT 94
--- NOTE | 2023-09-15 12:48 | PCM.TXEXTCAR ---
Diet Diet Order/Speech Therapy: 09/12/23 23:21 Diet: Cardiac - Heart Healthy Food consistency:: Regular Liquid Consistency:: Regular/Thin Type of Dietary Supplement:: Ensure Compact Routine Orders/Code Status Routine Lab Work: CBC and BMP Code Status: DNRCC-A Therapies Physical Therapy: Eval and Treat Occupational Therapy: Eval and Treat Problem/Diagnosis (1) UTI (urinary tract infection): Status: Acute Code(s): N39.0 - Urinary tract infection, site not specified Plan 1. Acute hypoxia from unclear etiology hepatosplenomegaly/hypercalcemia/normocytic normochromic anemia ? Initial BNP was normal and then after IV fluids repeat BMP was slightly elevated I do not think that heart failure is a major component ? Echo with an EF of 70% and stage I diastolic dysfunction which is not abnormal for age ? Her history is a bit more complicated as she says that she has had a 10 to 15 pound unintentional weight loss since July she has hilar lymphadenopathy on her CT of the chest as well as retroperitoneal lymphadenopathy in her abdomen unfortunately the CT scan was noncontrasted so it does not provide a great picture at this time ? PTH is appropriately suppressed given her hypercalcemia indicating her hypercalcemia is from another cause given the anemia as well as the hypercalcemia and on admission her slight elevation in creatinine multiple myeloma is a possibility however total protein is low, may need to get an SPEP/UPEP for further evaluation. No obvious solid tumors in her abdomen or in her lungs. She denies a history of sarcoidosis or autoimmune diseases in her family ? She has a sister and niece with a history of breast cancer but otherwise it does not appear that cancer is a major family history ? TSH is slightly elevated to 7 ? Flow cytometry as well as an SPEP with immunofixation are pending 2. Acute UTI with pansensitive E. coli ? Urine culture with pansensitive E. coli ? Continue with Rocephin DVT: SCDs Allergies/Procedures Done in Hospital Allergies sulfamethoxazole [From Bactrim] Allergy (Verified 09/12/23 17:34) Angioedema trimethoprim [From Bactrim] Allergy (Verified 09/12/23 17:34) Angioedema nitrofurantoin [From Macrobid] Adverse Reaction (Verified 09/12/23 17:34) Diarrhea Procedures: 2-D Echocardiogram Type of Care/Length of Stay Estimated LOS: Convalescent Care Less Than 30 days Type of Care Needed: Skilled Rehab Potential: Fair Prognosis: Fair Additional Orders/Day of Discharge Day of Discharge: 09/15/23 Dietary and Speech Recommendations Dietitian Recommendations/Changes: Continue cardiac diet as tolerated; will add ensure compact TID w/ meals for additional nutrition if consumed. Will monitor need for liberalized diet pending intake/appetite and acceptance of ONS. Discharge Plan Admission Admit Date/Time: 09/12/23 22:15 Attending Provider: Cedric Reynoso Primary Care Provider: Keisha Paniagua Consulting Providers: Igor Borjas; Joslyn Wagner Discharge Orders/Prescriptions Prescriptions: New levothyroxine 50 mcg Tablet 50 mcg PO DAILY@0600 Qty: 0 0RF cefdinir 300 mg capsule 300 mg PO BID Qty: 6 0RF Continued ascorbic acid (vitamin C) 500 mg tablet 500 mg PO DAILY Referrals / Follow Up: Keisha Paniagua MD [Primary Care Provider] - Within 1 Week Cornelio Hurst DO [Med Staff - Active Staff] - Within 2 Weeks Disposition Disposition (needs filled in before D/C Order can be placed): [facility]
--- NOTE | 2023-09-15 15:51 | NURSING ---
report called to [facility] nurse
--- NOTE | 2023-09-15 17:08 | PCM.DC.SUM ---
Providers Date of Admission: 09/12/23 Primary Care Physician: Dr. Keisha Paniagua MD Consultations 09/13/23 00:42 Consult: Cardiology Routine Consulting Provider: Igor Borjas Reason for Consult: Hypoxia, poss HF exac EMERGENT Consult: No MD Notified: Yes Date Notified: 09/13/23 Time Notified: 00:42 Method of Notification: Text Reason For Visit: HYPOXIA, HF EXAC, UTI, HEMATURIA WITH ANEMIA Diagnosis Discharge Diagnosis (1) UTI (urinary tract infection): Status: Acute Code(s): N39.0 - Urinary tract infection, site not specified Plan 1. Acute hypoxia from unclear etiology hepatosplenomegaly/hypercalcemia/normocytic normochromic anemia ? Initial BNP was normal and then after IV fluids repeat BMP was slightly elevated I do not think that heart failure is a major component ? Echo with an EF of 70% and stage I diastolic dysfunction which is not abnormal for age ? Her history is a bit more complicated as she says that she has had a 10 to 15 pound unintentional weight loss since July she has hilar lymphadenopathy on her CT of the chest as well as retroperitoneal lymphadenopathy in her abdomen unfortunately the CT scan was noncontrasted so it does not provide a great picture at this time ? PTH is appropriately suppressed given her hypercalcemia indicating her hypercalcemia is from another cause given the anemia as well as the hypercalcemia and on admission her slight elevation in creatinine multiple myeloma is a possibility however total protein is low, may need to get an SPEP/UPEP for further evaluation. No obvious solid tumors in her abdomen or in her lungs. She denies a history of sarcoidosis or autoimmune diseases in her family ? She has a sister and niece with a history of breast cancer but otherwise it does not appear that cancer is a major family history ? TSH is slightly elevated to 7 ? Flow cytometry as well as an SPEP with immunofixation are pending 2. Acute UTI with pansensitive E. coli ? Urine culture with pansensitive E. coli ? Continue with Rocephin DVT: SCDs Medications at Discharge Home Medications ascorbic acid (vitamin C) 500 mg tablet 500 mg PO DAILY 09/11/23 cefdinir 300 mg capsule 300 mg PO BID #6 caps 09/15/23 levothyroxine 50 mcg tablet 50 mcg PO DAILY@0600 #0 tabs 09/15/23 Hospital Course Operations None Procedures 2-D Echocardiogram Summary of Care Provided Minutes Spent on Discharge: 38 Hospital Course: Per HPI: The patient is a 73 y/o F w/ no marked PMHx although patient did have recent 09/11/23 Cardiology evaluation secondary to dyspnea and mild tachycardia with plans outpatient echocardiogram, CTA as well as chest x-ray to further investigate with noted history at that time of recent UTI treated with nitrofurantoin with ongoing hematuria who now presents to [facility] ED on 09/12/23 with significant worsening weakness, progressing over the last 3 weeks with diarrhea since she started taking Macrobid prompting her to stop which is improved some however she has had ongoing urinary frequency and red-tinged urine with dyspnea, worse with exertion with no specific cough nor any fever or chills nor any nausea, emesis or abdominal pain but given ongoing prompted ED evaluation. In the ED she did note to ED physician that sometimes she would have blood in her stools but following more lengthy discussions she notes that this was also in the toilet when she was having ongoing hematuria and as noted in the ED her guaiac is negative. Workup in the ED included T97.5, heart rate 107, BP 99/51, respiratory rate 20, 94% on room air however patient did desaturate down to 73% on room air eventually transition to nasal cannula initially 93% on 6 L with improvement to 95% on 1.5 L, most recent vital signs included T98.1, heart rate 100, BP 106/52, respiratory rate 22, CBC with WBC 11.6, hemoglobin 8.2, MCV 87.7, platelet 122 with left shift, CMP with BUN/1 and 32/1.02, glucose 113, calcium 11.4, T. bili 1.10, AST/ALT 13/12, albumin 2.4, troponin 7, urinalysis with cloudy appearing urine, specific remedy 1.025, protein 15, ketone 5, occult blood 10, positive nitrate, leukocyte Estrace 100 with 5-10 urine WBCs with 3+ urine bacteria, urine culture pending per ED, chest x-ray with interstitial increased markings with no pleural effusion or pneumothorax with enlarged heart, CTPA with no evidence of any acute pulmonary emboli to the segmental level, re-demonstration of mediastinal and bilateral hilar and axillary lymphadenopathy, cardiomegaly with interstitial edema and small bilateral pleural effusion, stool guaiac negative. In the ED patient ministered 1 L normal saline and IV Rocephin. In the ED patient ordered 2 unit PRBC. Hospital Course: 1. Acute hypoxia from unclear etiology with hepatosplenomegaly/hypercalcemia/normocytic normochromic anemia?73-year-old female presented to the hospital with weakness as well as hematuria and increased dyspnea. Initially there is a concern for possible heart failure however BNP was normal and echo demonstrated an EF of 70% with stage I diastolic dysfunction which is unlikely to be causing significant issues as she does not have any lower extremity edema. However it was found that she has hypercalcemia and vitamin D levels were normal and she had an appropriate decrease in her PTH. There is initial concern for multiple myeloma though it is not under percent classic CTA of the chest to demonstrate bilateral hilar lymphadenopathy and CT of the abdomen demonstrated retroperitoneal lymphadenopathy. Her Lasix had to be discontinued secondary to her rising creatinine and also the need for hydration secondary to her hypercalcemia. As this was not getting better with fluids she was given a dose of pamidronate today. I discussed with her and the family the possibility of discharge today versus waiting 1 more day to make sure that everything is going in the right direction however they expressed understanding of the risk benefits and have elected to [facility] to [facility] today to start on physical therapy as we wait for the flow cytometry of her blood to evaluate for possible lymphoproliferative disorder as well as the lab results for possible multiple myeloma. 2. Acute pansensitive E. coli UTI?she was found to have another UTI and was placed on Rocephin and transition to cefdinir for another 3 days on discharge. She does endorse some diarrhea though this is likely related to the antibiotics as it started during her last UTI. It is not frequent enough to consider the possibility of C. difficile at this time. 3. New onset hypothyroidism?on admission her TSH was 7.26 and her free T4 was 1.11 however her T3 was 0.7 therefore she was started on Synthroid with first dose today I do recommend outpatient evaluation and follow-up of her thyroid function in about 4 to 6 weeks. Physical Exam Narrative General: Alert, Oriented x3, Cooperative, No apparent distress HEENT: Atraumatic, PERRLA, EOMI, Normocephalic Oral: Moist Mucosa Neck: Supple, No JVD Lungs: Diminished, Normal air movement, No rhonchi, No wheeze, No rales Cardiovascular: Regular rate, Regular Rhythm, Normal S1, Normal S2, No murmurs Abdomen: Soft, Non Tender, Non-Distended, No Hepato-splenomegaly Extremities: No edema, Capillary Refill Less than 3 Seconds Skin: No rashes, No breakdown Musculoskeletal: No Tenderness to Palpation of Joints or Extremities Neurological: No focal neurological deficits, Motor Exam 5/5 strength throughout, Sensory exam intact to light touch and pain Psych/Mental Status: Normal Affect, Appropriate Medical Records Data Medical Nutrition Assessment Dietitian: Malnutrition Criteria Met Start: 09/13/23 13:57 Freq: Status: Active Protocol: Document 09/13/23 13:57 AG (Rec: 09/13/23 13:57 AG [id number]) Nutrition Malnutrition Evidence of Malnutrition Exists Yes Malnutrition (severe): Chronic Evidenced By Suboptimal Energy Intake ( Severe),Weight Loss (Severe) Clinical Problem Chronic Disease or Condition Related Malnutrition Etiology severe, chronic malnutrition related to inadequate energy intake Signs/Symptoms as evidenced by unintentional 10% wt loss < 3 months, estimated PO intake meeting < 75% of estimated energy needs x 3 months, worsened to <50% of estimated needs over past 2 -3 weeks Status Active Problem Recommendation Dietitian Recommendations/Changes Continue cardiac diet as tolerated; will add ensure compact TID w/ meals for additional nutrition if consumed. Will monitor need for liberalized diet pending intake/appetite and acceptance of ONS. Weight / BMI Weight Weight: 131 lb 13.383 oz Body Mass Index (BMI) 21.2 ABG / Lab / Microbiology Data 09/15/23 06:32 09/15/23 06:32 Laboratory: Laboratory Results - last 24 hr 09/15/23 06:32: WBC 9.6, RBC 2.92 L, Hgb 8.5 L, Hct 26.2 L, MCV 89.7, MCH 29.1, MCHC 32.4, RDW Std Deviation 45.7 H, RDW Coeff of Alex 14.4, Plt Count 136 L, MPV 9.9, Immature Gran % (Auto) 1.100 H, Neut % (Auto) 72.1 H, Lymph % (Auto) 16.4 L, [place] % (Auto) 6.0, Eos % (Auto) 3.7, Baso % (Auto) 0.7, Absolute Neuts (auto) 6.9, Absolute Lymphs (auto) 1.58, Nucleated RBC % 0, Differential Comment SCANNED, Sodium 143, Potassium 3.9, Chloride 111 H, Carbon Dioxide 29.0, Anion Gap 3 L, BUN 39 H, Creatinine 1.11 H, Estim Creat Clear Calc 41.63, Est GFR (MDRD) Af Amer 62, Est GFR (MDRD) Non-Af 51 L, BUN/Creatinine Ratio 35.1 H, Glucose 103, Calcium 12.1 H, Free T3 pg/dL 0.7 L Microbiology: Microbiology 09/15/23 13:23 Nasal Secretion SARS-CoV-2 Antigen (Rapid) - Final 09/12/23 21:52 Urine, Clean Catch Urine Culture - Final Presumptive E. coli 09/12/23 18:05 Stool Stool Occult Blood (MENDOZA) - Final Meaningful Use Info Meaningful Use Diagnoses (Choose all that apply): None applicable Discharge Plan Admission Admit Date/Time: 09/12/23 22:15 Attending Provider: Cedric Reynoso Primary Care Provider: Keisha Paniagua Consulting Providers: Igor Borjas; Joslyn Wagner Discharge Orders/Prescriptions Prescriptions: New levothyroxine 50 mcg Tablet 50 mcg PO DAILY@0600 Qty: 0 0RF cefdinir 300 mg capsule 300 mg PO BID Qty: 6 0RF Continued ascorbic acid (vitamin C) 500 mg tablet 500 mg PO DAILY Referrals / Follow Up: Keisha Paniagua MD [Primary Care Provider] - Within 1 Week Cornelio Hurst DO [Med Staff - Active Staff] - Within 2 Weeks Disposition Disposition (needs filled in before D/C Order can be placed): Assisted Facility Charges/Coding Visit Charges Inpatient E&M: 20623 Disch Hosp >30min
[2023-09-17 13:08] LABS: Vitamin D 1,25-Dihydroxy 252.9 pg/mL (24.8-81.5)
[2023-09-17 13:08] LABS: Albumin 2.6 g/dL (2.9-4.4); Alpha-1-Globulins 0.4 g/dL (0.0-0.4); Alpha-2-Globulins 0.6 g/dL (0.4-1.0); IMMUNOFIXATION RESULT,S Comment: (.); Immunoglobulin A 249 mg/dL (64-422); Immunoglobulin G 1549 mg/dL (586-1602); Immunoglobulin M 478 mg/dL (26-217); PROEL- TOTAL PROTEIN 6.1 g/dL (6.0-8.5)
[2023-09-21 11:28] LABS: PTHIN < 6.3 pg/mL (18.4-80.1)
== END 2023-09-15 17:34 | disposition skilled nursing facility (03) | DRG 689 ==
LOC: ED 18:49 → PCU 22:28
PROVIDERS: Physician Assistant; Admitting Provider Family Medicine; Emergency Provider Emergency Medicine; PCP Family Medicine; Visit Provider Family Medicine
DX: N39.0 Urinary tract infection, site not specified (principal); E43 Unspecified severe protein-calorie malnutrition; D62 Acute posthemorrhagic anemia; R16.2 Hepatomegaly with splenomegaly, not elsewhere classified; E03.9 Hypothyroidism, unspecified; E83.52 Hypercalcemia; R63.4 Abnormal weight loss; R09.02 Hypoxemia; B96.20 Unspecified Escherichia coli [E. coli] as the cause of diseases classified elsewhere; Z66 Do not resuscitate
CPT/HCPCS: 36415; 71046; 71275; 74176; 80048; 80053; 80061; 81001; 82274; 82306; 82330; 82340; 82652; 82728; 82784; 83540; 83550; 83615; 83735; 83880; 83970; 84100; 84165; 84439; 84443; 84481; 84484; 85014; 85018; 85025; 86334; 86850; 86900; 86901; 86920; 86921; 86922; 87086; 87088; 87186; 87426; 93005; 93306; 94668; 97162; 97166; 97530; 97535; 97802; 99252; 99284; P9016; Q9967; A4216; G0463; J1938; J2430

== ENCOUNTER 2023-09-20 11:40 | Inpatient (IN) | payer MEDICARE, OTHER, SELFPAY ==
[2023-09-20] VITALS (10 sets, daily range): BP systolic 93–111; BP diastolic 43–56; PULSE 86–105; RESP 14–26; TEMP 36–36.9; O2SAT 92–100; BMI 23.3; BMI 22.2
--- NOTE | 2023-09-20 12:05 | EKG12_ITS ---
Test Reason : Blood Pressure : / mmHG Vent. Rate : 096 BPM Atrial Rate : 096 BPM P-R Int : 168 ms QRS Dur : 090 ms QT Int : 340 ms P-R-T Axes : 054 -22 043 degrees QTc Int : 429 ms Sinus rhythm with Premature atrial complexes Possible Left atrial enlargement Septal infarct , age undetermined Abnormal ECG Confirmed by ARTEM YEUNG, MIESHA ([id number]), order editor DARREN ROBERTO ([id number]) on 09/23/2023 11:06:02 AM Referred By: Confirmed By:MIESHA MCGILL MD
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
--- NOTE | 2023-09-20 13:00 | RAD_ITS ---
EXAM: XR CHEST, 1 VIEW CLINICAL INDICATION: cough TECHNIQUE: Frontal view of the chest. COMPARISON: No relevant prior studies available. FINDINGS: LUNGS AND PLEURAL SPACES: Prior to T1 improving interstitial infiltrates/edema right lower lobe. Small bilateral pleural effusions, increased in size on the left. Left lower lobe pulmonary density consistent with compression atelectasis. HEART: Normal heart size. MEDIASTINUM: No mediastinal or hilar mass. BONES/JOINTS: No acute abnormality. RAD/Chest 1 View (Portable) IMPRESSION: Improving interstitial edema/infiltrate of the right lung. Interval increase in the size of the small left pleural effusion. Electronically Signed: Ivan Bro MD at 13:32 EDT ,
[2023-09-20 13:05] LABS: Hemoglobin 6.7 g/dL (12.0-15.0); Mean Corp Hgb Conc 33.5 g/dL (32-36); Mean Corpuscular Hgb 28.9 pg (27.0-32.0); Mean Corpuscular Volume 86.2 fL (81-99); Mean Platelet Vol. 9.8 fl (6.2-12.0); POSITIVE COUNT YES; POSITIVE MORPHOLOGY YES; Platelet Count 136 K/mm3 (150-450); RBC Distribution Width CV 14.4 % (11.6-14.6); RBC Distribution Width SD 44.3 fl (35.1-43.9); Red Blood Count 2.32 M/mm3 (4.2-5.4); White Blood Count 10.7 K/mm3 (4.4-11.0)
[2023-09-20 13:13] LABS: Differential Indicated MANUAL DIFF
[2023-09-20 13:25] LABS: Lactic Acid 1.5 mmol/L (0.4-1.9)
[2023-09-20 13:27] LABS: ALB/GLOB Ratio 0.7 RATIO (0.9-2.4); AST(SGOT) 20 U/L (15-37); Alanine Aminotransfer ALT/SGPT 18 U/L (13-56); Albumin, Serum 2.4 g/dL (3.2-5.0); Alkaline Phosphatase 67 U/L (45-117); Anion Gap 7 (5-15); BUN 30 mg/dL (7-18); BUN/Creat Ratio 27.5 RATIO (10-20); Calcium,Total 11.4 mg/dL (8.5-10.1); Chloride 105 mmol/L (98-107); Creatinine, Serum 1.09 mg/dL (0.55-1.02); EST Glomerular Filtration Rate 52 mL/min (>60); Est Glom Filt Rate - Afr Amer 63 mL/min (>60); Globulin 3.5 g/dL (2.2-4.2); Glucose 108 mg/dL (74-106); Lipase 21 U/L (13-75); Protein, Total 5.9 g/dL (6.4-8.2); Sodium Level 139 mmol/L (136-145); Thyroid Stim Hormone (TSH) 8.28 uIU/mL (0.358-3.74); Troponin-I HS 6 pg/mL (3.0-54.0)
[2023-09-20 13:42] LABS: Eosinophil 1 % (0-5); Lymphocyte 2 % (19-41); Metamyelocyte 3 % (0-1); Monocyte 3 % (0-10); Neutrophil-Band 3 % (0-5); Neutrophil-Segmented 88 % (47-70); Platelet Estimate SLT DEC (ADEQ); Red Cell Morphology NORM C+C NORMAL (NORM C&C); Total Cells Counted 100 (MANUAL DIFF)
[2023-09-20 13:46] LABS: Absolute Neutrophil Count 9.7 X10^3/uL (2.0-7.7)
[2023-09-20 13:58] LABS: BNP,B-Type NATRIURETIC PEPTIDE 167.7 pg/mL (0-100)
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
[2023-09-20] MEDS: Furosemide 40 MG/4 ML Vial IV (18:22)
[2023-09-20 23:41] LABS: Bacteria 0 SEEN /hpf (None Seen); Mucous, Urine 0 SEEN /hpf (<or=2+)
[2023-09-20 23:45] LABS: Glucose, Dipstick Normal (Normal); Ketone-Dipstick Negative (Negative); Leukocyte Esterase-Dipstick 25 /ul (Negative); Nitrite-Dipstick Negative (Negative); Occult Blood-Urine Negative /ul (Negative); Protein-Dipstick Negative (Negative); Specific Gravity, Urine 1.015 (1.002-1.030); Urine Bilirubin Dipstick Negative (Negative); Urine Urobilinogen Normal (Normal)
[2023-09-20 23:46] LABS: Color, Urine Yellow (Yellow); Urine Clarity Clear (Clear)
[2023-09-21] VITALS (9 sets, daily range): BP systolic 90–106; BP diastolic 48–56; PULSE 86–102; RESP 16–22; TEMP 36.7–36.9; O2SAT 94–98
[2023-09-21 00:55] LABS: Red Blood Cells-Urine 0-5 SEEN /hpf (0-5); Squamous Epithelial Cells - UA 5-10 SEEN /hpf (5-10); White Blood Cells 0-5 SEEN /hpf (0-5)
[2023-09-21] MEDS: Levothyroxine 50 MCG Tablet PO (05:21)
[2023-09-21] MEDS: 0.9% Saline Lock 10 ML Syringe IV (05:23)
[2023-09-21 07:07] LABS: Absolute Lymphocyte Count 1.09 X10^3/uL (0.83-4.51); Basophil# 0.07 X10^3/uL; Basophil% 0.7 % (0-1); Eosinophil# 0.21 X10^3/uL; Hematocrit 20.6 % (37-47); Lymphocyte # 1.09 X10^3/ul (0.83-4.51); Lymphocyte % 10.6 % (19-41); Mean Corpuscular Hgb 29.8 pg (27.0-32.0); Mean Corpuscular Volume 87.7 fL (81-99); Monocyte# 0.42 X10^3/uL; Monocyte% 4.1 % (0-10); NRBC Flagged by Analyzer 0 % (0-5); Neutrophil # 7.95 X10^3/uL (2.7-7.7); Neutrophil % 77.6 % (47-70); POSITIVE COUNT YES; POSITIVE MORPHOLOGY YES; Platelet Count 115 K/mm3 (150-450); RBC Distribution Width CV 14.7 % (11.6-14.6); RBC Distribution Width SD 45.1 fl (35.1-43.9); Red Blood Count 2.35 M/mm3 (4.2-5.4); White Blood Count 10.3 K/mm3 (4.4-11.0)
[2023-09-21 07:19] LABS: Differential Indicated SCAN CRITERIA MET
[2023-09-21 07:25] LABS: Anion Gap 7 (5-15); BUN 34 mg/dL (7-18); BUN/Creat Ratio 24.1 RATIO (10-20); Calcium,Total 10.6 mg/dL (8.5-10.1); Chloride 107 mmol/L (98-107); Creatinine, Serum 1.41 mg/dL (0.55-1.02); EST Glomerular Filtration Rate 39 mL/min (>60); Est Glom Filt Rate - Afr Amer 47 mL/min (>60); Estimated Creatinine Clearance 32.77 ml/min; Glucose 91 mg/dL (74-106); Potassium 3.7 mmol/L (3.5-5.1); Sodium Level 140 mmol/L (136-145)
[2023-09-21 07:55] LABS: Differential Comment SCANNED
--- NOTE | 2023-09-21 14:54 | PCM.PN.HOSP ---
Subjective Subjective Appears similar to when I saw her on 09/15/2023. Appears fatigued Objective Data Objective Data Vital Signs: Vital Signs Temp Pulse Resp BP Pulse Ox O2 Del Method O2 Flow Rate 98.0 F 102 H 22 H 106/52 L 94 Nasal Cannula 2 09/21/23 14:05 09/21/23 14:05 09/21/23 14:05 09/21/23 14:05 09/21/23 14:05 09/21/23 14:05 09/21/23 14:05 Oxygen Flow Rate (L/min) 2 Oxygen Delivery Method Nasal Cannula Weight: 138 lb Body Mass Index (BMI) 22.2 Intake & Output: Intake and Output for Last 24 Hours 09/20/23 09/21/23 09/22/23 03:59 03:59 03:59 Intake Total 201 / 201 Output Total 200 / 200 200 / 200 Balance -200 / -200 Lab / Micro Data 09/21/23 06:40 09/21/23 06:40 Labs: Laboratory Results - last 24 hr 09/20/23 12:52: Folate 4.40 09/20/23 13:41: Blood Type A POSITIVE, Antibody Screen NEGATIVE, Crossmatch See Detail 09/20/23 20:20: Hgb 7.0 L 09/20/23 23:30: Urine Color Yellow, Urine Clarity Clear, Urine pH 6.0, Ur Specific [place] 1.015, Urine Protein Negative, Urine Glucose (UA) Normal, Urine Ketones Negative, Urine Occult Blood Negative, Urine Nitrite Negative, Urine Bilirubin Negative, Urine Urobilinogen Normal, Ur Leukocyte Esterase 25 H, Urine RBC 0-5 SEEN, Urine WBC 0-5 SEEN, Ur Squamous Epith Cells 5-10 SEEN, Urine Bacteria 0 SEEN, Urine Mucus 0 SEEN 09/21/23 06:40: WBC 10.3, RBC 2.35 L, Hgb 7.0 L, Hct 20.6 L, MCV 87.7, MCH 29.8, MCHC 34.0, RDW Std Deviation 45.1 H, RDW Coeff of Alex 14.7 H, Plt Count 115 L, MPV 10.0, Immature Gran % (Auto) 5.000 H, Neut % (Auto) 77.6 H, Lymph % (Auto) 10.6 L, [place] % (Auto) 4.1, Eos % (Auto) 2.0, Baso % (Auto) 0.7, Absolute Neuts (auto) 8.0 H, Absolute Lymphs (auto) 1.09, Nucleated RBC % 0, Differential Comment SCANNED, Diff Path Review May foll, Sodium 140, Potassium 3.7, Chloride 107, Carbon Dioxide 26.0, Anion Gap 7, BUN 34 H, Creatinine 1.41 H, Estim Creat Clear Calc 32.77, Est GFR (MDRD) Af Amer 47 L, Est GFR (MDRD) Non-Af 39 L, BUN/Creatinine Ratio 24.1 H, Glucose 91, Calcium 10.6 H Micro: Microbiology 09/20/23 13:52 Stool Stool Occult Blood (MENDOZA) - Final 09/20/23 12:12 Mucosa - Nose SARS-CoV-2, Influenza & RSV (PCR) - Final Physical Exam Narrative General: Alert, Oriented x3, Cooperative, No apparent distress, appears tired HEENT: Atraumatic, PERRLA, EOMI, Normocephalic Oral: Moist Mucosa Neck: Supple, No JVD Lungs: Diminished, Normal air movement, No rhonchi, No wheeze, No rales Cardiovascular: Regular rate, Regular Rhythm, Normal S1, Normal S2, No murmurs Abdomen: Soft, Non Tender, Non-Distended, No Hepato-splenomegaly Extremities: No edema, Capillary Refill Less than 3 Seconds Skin: No rashes, No breakdown Musculoskeletal: No Tenderness to Palpation of Joints or Extremities Neurological: No focal neurological deficits, Motor Exam 5/5 strength throughout, Sensory exam intact to light touch and pain Psych/Mental Status: Normal Affect, Appropriate Assessment & Plan Assessment/Plan (1) Anemia: PLAN: Plan 1. Chronic hypoxic respiratory failure/left pleural effusion ? Continue with her home oxygen requirement ? During the last admission did not feel that she was significant heart failure component ? She did receive a dose of Lasix in the ER, may benefit from a thoracentesis on the left if no significant improvement on Saturday ? BNP is not significantly elevated in the last time she had a BMP on her previous admission it was normal until she was given a liter of IV fluid then it became positive I highly doubt that there is any component of heart failure. The 1 dose of Lasix bumped her creatinine from 1.09-1.41 so we will hold and monitor 2. Hepatosplenomegaly with hypercalcemia normocytic normochromic anemia ? Iron studies have been normal and B12 is normal ? stool studies are also negative for bleeding ? She did have an SPEP with immunofixation on her previous admission and her M spike is normal with an IgM spike which may be related to her UTI at that time which has been treated ? Given her retroperitoneal lymphadenopathy with her bilateral hilar lymphadenopathy I did have a 30-minute discussion with her and the family about advance care planning as well as prognosis and goals of care. Given the concern for lymphoma versus a lymphoproliferative disease, we discussed the need for potential lymph node biopsy versus bone marrow aspiration, she did have a flow cytometry that was a send out that will need to be reviewed by oncology. Her case was previously discussed with [facility] oncology Dr. Hurst who can be notified on Saturday of the results. We essentially discussed that if she does not want further investigation then we can have further discussions DNR CC and hospice care. She does not want any aggressive chemotherapy or radiation depending on what would be found ? Repeat CBC in the morning and transfuse as necessary 3. Hypothyroidism ? This was diagnosed on her last admission she was started on Synthroid ? It does not look like she has been taking it since her family removed her from the [facility] ? Will restart DVT: Heparin Charges/Coding Visit Charges Inpatient E&M: 33725 Subs Hosp L2 Procedures Hospitalists Procedures: 18620 Advncd Care Plan 30 Min
--- NOTE | 2023-09-21 17:00 | CASEMGMT ---
ROSLEYN LIRA readmission note: Index admission: Admitted from home 09/11 w/hypoxia, HF exac, UTI, hematuria w/anemia. See ROSELYN LIRA, Madyson, note 09/12. Discharged 09/14 to [facility] Home/SNF on 2 l/m O2. Per ED note, pt left [facility] ([facility]) AM and went home. Current admission: Admitted 09/19 from home w/anemia, hypotension, weakness. ROSELYN LIRA to room. Pt resting in bed. Family at bedside and pt agreeable to them being present and asked ROSELYN LIRA to include them on conversation. Dtr, Taya, @ bedside. She states pt d/c'd to [facility] on Thursday 09/14 and then went home on 09/16, stating, She just really wanted to be home. , who is at bedside, states pt was doing well @ home/getting around okay and he was assisting as needed, until she became suddenly SOB and weak night and they were concerned she may not make it through the night. Per family and pt, she was taking her medications as prescribed since leaving [facility] and Tameka, pt's DIL, had been in contact w/pt's PCP, Dr Paniagua, although pt had not been in to see her in-person. Pt has her own O2 concentrator @ home, shower chair, walker, pulse ox, and she also now has a hospital bed @ home. Per Dr Reynoso H/P, there is concern for lymphoma versus a lymphoproliferative disease and he discussed the need for potential lymph node biopsy versus bone marrow aspiration w/pt and family. Pt and family state pt is not sure yet if she wants to pursue talking w/oncology on Saturday, as she is also considering going on hospice. They plan on talking w/Dr Reynoso about this more tomorrow. Pt and family state, if she does decide to go home w/out hospice, they may consider HHC. She does not wish to go to a SNF, stating she wants to be at home. Plan: TBD. Hospice vs Home w/HHC vs home. Jackelyn ANTUNEZ RN, CM
[2023-09-22] VITALS (15 sets, daily range): BP systolic 99–109; BP diastolic 44–53; PULSE 90–98; RESP 16–18; TEMP 36.4–37; O2SAT 93–97
[2023-09-22] MEDS: Levothyroxine 50 MCG Tablet PO (06:22)
[2023-09-22 06:27] LABS: Hematocrit 20.4 % (37-47); Hemoglobin 6.8 g/dL (12.0-15.0); Mean Corp Hgb Conc 33.3 g/dL (32-36); Mean Corpuscular Hgb 29.4 pg (27.0-32.0); Mean Corpuscular Volume 88.3 fL (81-99); Mean Platelet Vol. 10.4 fl (6.2-12.0); POSITIVE MORPHOLOGY YES; Platelet Count 104 K/mm3 (150-450); RBC Distribution Width CV 15.1 % (11.6-14.6); RBC Distribution Width SD 46.6 fl (35.1-43.9); Red Blood Count 2.31 M/mm3 (4.2-5.4)
[2023-09-22 06:52] LABS: Anion Gap 6 (5-15); BUN 42 mg/dL (7-18); BUN/Creat Ratio 24.4 RATIO (10-20); Calcium,Total 10.9 mg/dL (8.5-10.1); Chloride 106 mmol/L (98-107); Creatinine, Serum 1.72 mg/dL (0.55-1.02); EST Glomerular Filtration Rate 31 mL/min (>60); Est Glom Filt Rate - Afr Amer 37 mL/min (>60); Estimated Creatinine Clearance 26.86 ml/min; Glucose 90 mg/dL (74-106); Potassium 3.9 mmol/L (3.5-5.1); Sodium Level 139 mmol/L (136-145)
[2023-09-22 08:57] LABS: Basophil 1 % (0-1); Eosinophil 1 % (0-5); Lymphocyte 3 % (19-41); Monocyte 2 % (0-10); Myelocyte 4 % (0-0); Neutrophil-Band 3 % (0-5); Neutrophil-Segmented 86 % (47-70); Total Cells Counted 100 (MANUAL DIFF)
[2023-09-22 08:58] LABS: Anisocytosis 1+; Scan Smear per Review Criteria MANUAL DIFF
[2023-09-22 08:59] LABS: Vacuolated Cells 100
[2023-09-22 09:27] LABS: ERROR FUNCTION FLAG YES; ERROR RESULT FLAG YES
[2023-09-22 09:28] LABS: Absolute Neutrophil Count 8.3 X10^3/uL (2.0-7.7); Differential Indicated MANUAL DIFF
--- NOTE | 2023-09-22 11:55 | PCM.PN.HOSP ---
Subjective Subjective Doing well, no issues overnight. Hemoglobin back down to 6.8, will transfuse 2 units Objective Data Objective Data Vital Signs: Vital Signs Temp Pulse Resp BP Pulse Ox O2 Del Method O2 Flow Rate 98.2 F 97 16 99/46 L 97 Nasal Cannula 2 09/22/23 11:39 09/22/23 11:39 09/22/23 11:39 09/22/23 11:39 09/22/23 11:39 09/22/23 11:39 09/22/23 11:39 Oxygen Flow Rate (L/min) 2 Oxygen Delivery Method Nasal Cannula Weight: 138 lb Body Mass Index (BMI) 22.2 Intake & Output: Intake and Output for Last 24 Hours 09/21/23 09/22/23 09/23/23 03:59 03:59 03:59 Intake Total 201 / 201 1000 / 1000 100 / 100 Output Total 200 / 200 200 / 200 Balance 800 / 800 100 / 100 Lab / Micro Data 09/22/23 05:26 09/22/23 05:26 Labs: Laboratory Results - last 24 hr 09/20/23 13:41: Crossmatch See Detail 09/22/23 05:26: WBC 10.0, RBC 2.31 L, Hgb 6.8 L, Hct 20.4 L, MCV 88.3, MCH 29.4, MCHC 33.3, RDW Std Deviation 46.6 H, RDW Coeff of Alex 15.1 H, Plt Count 104 L, MPV 10.4, Immature Gran % (Auto) [employer]ATE [employer]ITY SUPERVISOR, Neut % (Auto) [employer]ATE [employer] SECURITY SUPERVISOR, Lymph % (Auto) [employer]PORATE [employer] SECURITY SUPERVISOR, [place] % (Auto) [employer]PORATE [employer]ICAL SECURITY SUPERVISOR, Eos % (Auto) [employer]ATE [employer]ICAL SECURITY SUPERVISOR, Baso % (Auto) [employer]PORATE [employer]ICAL SECURITY SUPERVISOR, Absolute Neuts (auto) 8.3 H, Absolute Lymphs (auto) 0.30 L, Total Counted 100, Neutrophils % (Manual) 86 H, Band Neutrophils % 3, Lymphocytes % (Manual) 3 L, Monocytes % (Manual) 2, Eosinophils % (Manual) 1, Basophils % (Manual) 1, Myelocytes % 4 H, Nucleated RBC % [employer]ATE [employer] SECURITY SUPERVISOR, Diff Path Review May foll, Toxic Vacuolation 100, Anisocytosis 1+, Sodium 139, Potassium 3.9, Chloride 106, Carbon Dioxide 27.0, Anion Gap 6, BUN 42 H, Creatinine 1.72 H, Estim Creat Clear Calc 26.86, Est GFR (MDRD) Af Amer 37 L, Est GFR (MDRD) Non-Af 31 L, BUN/Creatinine Ratio 24.4 H, Glucose 90, Calcium 10.9 H Micro: Microbiology 09/20/23 13:52 Stool Stool Occult Blood (MENDOZA) - Final 09/20/23 12:12 Mucosa - Nose SARS-CoV-2, Influenza & RSV (PCR) - Final Physical Exam Narrative General: Alert, Oriented x3, Cooperative, No apparent distress, appears tired HEENT: Atraumatic, PERRLA, EOMI, Normocephalic Oral: Moist Mucosa Neck: Supple, No JVD Lungs: Diminished, Normal air movement, No rhonchi, No wheeze, No rales Cardiovascular: Regular rate, Regular Rhythm, Normal S1, Normal S2, No murmurs Abdomen: Soft, Non Tender, Non-Distended, No Hepato-splenomegaly Extremities: No edema, Capillary Refill Less than 3 Seconds Skin: No rashes, No breakdown Musculoskeletal: No Tenderness to Palpation of Joints or Extremities Neurological: No focal neurological deficits, Motor Exam 5/5 strength throughout, Sensory exam intact to light touch and pain Psych/Mental Status: Normal Affect, Appropriate Assessment & Plan Assessment/Plan (1) Anemia: PLAN: Plan 1. Chronic hypoxic respiratory failure/left pleural effusion ? Continue with her home oxygen requirement ? During the last admission did not feel that she was significant heart failure component ? She did receive a dose of Lasix in the ER, may benefit from a thoracentesis on the left if no significant improvement on Saturday ? BNP is not significantly elevated in the last time she had a BMP on her previous admission it was normal until she was given a liter of IV fluid then it became positive I highly doubt that there is any component of heart failure. The 1 dose of Lasix bumped her creatinine from 1.09 to 1.41 and now she is up to 1.72 we will hold and monitor ? The pleural effusion on chest x-ray does not appear significant if she develops worsening shortness of breath may need to repeat imaging 2. Hepatosplenomegaly with hypercalcemia normocytic normochromic anemia ? Iron studies have been normal and B12 is normal ? stool studies are also negative for bleeding ? She did have an SPEP with immunofixation on her previous admission and her M spike is normal with an IgM spike which may be related to her UTI at that time which has been treated ? Repeat CBC with hemoglobin of 6.8, will transfuse 2 units. May need to give her a dose of Lasix in between. ? Will give a dose of pamidronate today 3. Hypothyroidism ? This was diagnosed on her last admission she was started on Synthroid ? It does not look like she has been taking it since her family removed her from the [facility] ? Will restart DVT: Heparin Charges/Coding Visit Charges Inpatient E&M: 10432 Subs Hosp L2
[2023-09-22] MEDS: Pamidronate Disodium 60 MG in 0.9% Normal Saline (500mL Bag) 500 ML 250 MG IV (17:55)
[2023-09-22 18:52] LABS: Hematocrit 27.1 % (37-47); Hemoglobin 8.9 g/dL (12.0-15.0)
[2023-09-23] VITALS (7 sets, daily range): BP systolic 103–119; BP diastolic 46–55; PULSE 71–91; RESP 15–18; TEMP 36.4–37; O2SAT 93–98
[2023-09-23] MEDS: Levothyroxine 50 MCG Tablet PO (06:11)
[2023-09-23 06:49] LABS: Absolute Lymphocyte Count 1.27 X10^3/uL (0.83-4.51); Absolute Neutrophil Count 9.3 X10^3/uL (2.0-7.7); Basophil# 0.09 X10^3/uL; Basophil% 0.8 % (0-1); Eosinophils% 2.5 % (0-5); Hematocrit 26.4 % (37-47); Hemoglobin 8.9 g/dL (12.0-15.0); Lymphocyte # 1.27 X10^3/ul (0.83-4.51); Lymphocyte % 10.7 % (19-41); Mean Corp Hgb Conc 33.7 g/dL (32-36); Mean Corpuscular Hgb 27.7 pg (27.0-32.0); Mean Corpuscular Volume 82.2 fL (81-99); Mean Platelet Vol. 10.6 fl (6.2-12.0); Monocyte# 0.52 X10^3/uL; Monocyte% 4.4 % (0-10); NRBC Flagged by Analyzer 0.2 % (0-5); Neutrophil # 9.27 X10^3/uL (2.7-7.7); Neutrophil % 77.7 % (47-70); POSITIVE COUNT YES; POSITIVE MORPHOLOGY YES; Platelet Count 83 K/mm3 (150-450); RBC Distribution Width CV 18.9 % (11.6-14.6); Red Blood Count 3.21 M/mm3 (4.2-5.4); White Blood Count 11.9 K/mm3 (4.4-11.0)
[2023-09-23 07:18] LABS: ALB/GLOB Ratio 0.7 RATIO (0.9-2.4); AST(SGOT) 20 U/L (15-37); Alanine Aminotransfer ALT/SGPT 13 U/L (13-56); Albumin, Serum 2.2 g/dL (3.2-5.0); Alkaline Phosphatase 69 U/L (45-117); Anion Gap 7 (5-15); BUN 44 mg/dL (7-18); BUN/Creat Ratio 25.3 RATIO (10-20); Calcium,Total 10.4 mg/dL (8.5-10.1); Chloride 106 mmol/L (98-107); Creatinine, Serum 1.74 mg/dL (0.55-1.02); EST Glomerular Filtration Rate 30 mL/min (>60); Est Glom Filt Rate - Afr Amer 37 mL/min (>60); Estimated Creatinine Clearance 26.55 ml/min; Globulin 3.1 g/dL (2.2-4.2); Glucose 93 mg/dL (74-106); Potassium 3.9 mmol/L (3.5-5.1); Protein, Total 5.3 g/dL (6.4-8.2); Sodium Level 137 mmol/L (136-145)
[2023-09-23 07:26] LABS: Differential Indicated SCAN CRITERIA MET
[2023-09-23 07:45] LABS: Atypical Lymphocyte 2+ %
[2023-09-23 07:46] LABS: Platelet Estimate SLT DEC (ADEQ)
[2023-09-23 13:21] LABS: Pathologist Review Reviewed
[2023-09-23 13:25] LABS: Pathologist Review Reviewed
[2023-09-23 13:30] LABS: Pathologist Review Reviewed
--- NOTE | 2023-09-23 15:50 | PN_ITS ---
Subjective Subjective Patient seen and examined. Her daughter was by her bedside. She had no active complaints. Review of systems otherwise negative. She has remained hemodynamically stable. Objective Data Objective Data Vital Signs: Vital Signs Temp Pulse Resp BP Pulse Ox O2 Del Method O2 Flow Rate 97.9 F 91 18 113/51 L 94 Nasal Cannula 2 09/23/23 14:59 09/23/23 14:59 09/23/23 14:59 09/23/23 14:59 09/23/23 14:59 09/23/23 15:09 09/23/23 15:09 Oxygen Flow Rate (L/min) 2 Oxygen Delivery Method Nasal Cannula Weight: 138 lb Body Mass Index (BMI) 22.2 Intake & Output: Intake and Output for Last 24 Hours 09/21/23 09/22/23 09/23/23 23:59 23:59 23:59 Intake Total 1000 / 1433 058.6085 / 928.6667 795 / 795 Output Total 200 / 200 Balance 800 / 096 305.4598 / 928.6667 795 / 795 Lab / Micro Data 09/23/23 06:15 09/23/23 06:15 Labs: Laboratory Results - last 24 hr 09/20/23 12:52: Diff Path Review Reviewed 09/20/23 13:41: Crossmatch See Detail 09/21/23 06:40: Diff Path Review Reviewed 09/22/23 05:26: Diff Path Review Reviewed 09/22/23 18:42: Hgb 8.9 L, Hct 27.1 L 09/23/23 06:15: WBC 11.9 H, RBC 3.21 L, Hgb 8.9 L, Hct 26.4 L, MCV 82.2 D, MCH 27.7, MCHC 33.7, RDW Std Deviation 53.0 H, RDW Coeff of Alex 18.9 H, Plt Count 83 L, MPV 10.6, Immature Gran % (Auto) 3.900 H, Neut % (Auto) 77.7 H, Lymph % (Auto) 10.7 L, [place] % (Auto) 4.4, Eos % (Auto) 2.5, Baso % (Auto) 0.8, Absolute Neuts (auto) 9.3 H, Absolute Lymphs (auto) 1.27, Nucleated RBC % 0.2, Atypical Lymphocytes 2+, Platelet Estimate SLT DEC, Sodium 137, Potassium 3.9, Chloride 106, Carbon Dioxide 24.0, Anion Gap 7, BUN 44 H, Creatinine 1.74 H, Estim Creat Clear Calc 26.55, Est GFR (MDRD) Af Amer 37 L, Est GFR (MDRD) Non-Af 30 L, BUN/Creatinine Ratio 25.3 H, Glucose 93, Calcium 10.4 H, Total Bilirubin 1.40 H, AST 20, ALT 13, Alkaline Phosphatase 69, Total Protein 5.3 L, Albumin 2.2 L, Globulin 3.1, Albumin/Globulin Ratio 0.7 L Micro: Microbiology 09/20/23 13:52 Stool Stool Occult Blood (MENDOZA) - Final 09/20/23 12:12 Mucosa - Nose SARS-CoV-2, Influenza & RSV (PCR) - Final Physical Exam Const alert, oriented x3 and no apparent distress Constitutional Narrative: frail HEENT normocephalic, moist oral mucous membranes and oropharynx normal Eyes PERRL and EOMs intact bilaterally Neck no lymphadenopathy, supple and no JVD Lymph Lymphatic: no lymphadenopathy noted and no lymphedema noted Resp normal respiratory effort, normal air movement and clear to auscultation bilaterally Cardio regular rate, regular rhythm, S1 normal heart sound, S2 normal heart sound and no murmurs GI normal to inspection, nondistended, normoactive bowel sounds, soft to palpation, non-tender and non-distended Extremity normal capillary refill, no clubbing, cyanosis or edema and no calf tenderness General Extremity: no tenderness to palpation of joints or extremities Skin General Skin Exam: no breakdown Neuro CN's II-XII intact bilaterally, no focal motor deficits, no sensory deficits noted and deep tendon reflexes 2+ bilaterally Motor Exam: strength 5/5 throughout and general weakness Psych thought process normal, cooperative and affect normal Appearance: appropriate Assessment & Plan Assessment/Plan (1) Generalized weakness: (2) Anemia: (3) UTI (urinary tract infection): PLAN: Plan #Acute on chronic anemia * In the setting of hepatosplenomegaly with hypercalcemia. * Hemoglobin today is 8.9. Has received blood transfusion during this admission. Iron studies are normal vitamin B12 is also normal. She did have serum protein electrophoresis with immunofixation during a previous admission and M spike was normal with an IgM spike which was thought to be related to UTI. * Discussed with oncology. Plan is for patient to be transferred to tertiary facility for bone marrow biopsy. #Chronic hypoxic respiratory failure * On 3 L of oxygen. Also has a left pleural effusion. Received a dose of Lasix on admission. * Pleural effusion is noted to be significant and so we will monitor and if it worsens will order thoracentesis. #JUSTA: * Creatinine is 1.74. Baseline is around 0.96 from time of admission. * In light of her hypercalcemia, this may be what is preventing the kidney function from improving. * #Hypothyroidism: On Synthroid DVT prophylaxis: Heparin. Disposition: Awaiting transfer to tertiary facility for bone marrow biopsy. Charges/Coding Visit Charges Inpatient E&M: 91395 Subs Hosp L2
[2023-09-24] VITALS (19 sets, daily range): BP systolic 92–116; BP diastolic 27–64; PULSE 87–100; RESP 14–33; TEMP 36.4–36.8; O2SAT 88–98
--- NOTE | 2023-09-24 | BMB_PTH ---
PATIENT: KIM PRINGLE LOC: [facility] U#:[id number] AGE/SX: 73/F ROOM: [facility] RE09/20/[address]: Dr. Lina Khan MD : 1950 BED: 1 DIS: 09/25/2023 SPEC #: [id number] RECD: 09/24/23 12:24 STATUS: SOUT REQ #: [id number] CAT: 09/24/23 00:[address]: Lina Khan DEPT: BONE MARROW RECD BY: Luis Armando Fofana ENTERED: 09/24/23 12:24 SP TYPE: BMB OTHR DR: MD Dr. Maico Huitron MD Dr. Eric Jopperi, DO Dr. Elnora Spradling, MD Dr. Gabriele Pedicelli, MD Dr. Hannah Miedel, MD Dr. James Schuster, MD Dr. Lapman Lun, MD Dr. Mir Ali, MD Dr. Nicholas F Kotsonis, MD Dr. Olga Voroshilova, MD Dr. Paul Masci, DO Tissues: A - Bone marrow, NOS B - Bone marrow, NOS C - Bone marrow, NOS Procedures: Decalcification bone/plaque Bone Marrow Aspiration Bone Marrow Core Biopsy Iron Stain Bone Marrow HEADER OPERATION: Ct guided bone marrow biopsy and aspiration PRE-OP DIAGNOSIS: Anemia, suspected lymphoproliferative disorders TISSUE SUBMITTED: A - Core, B - Clot, C - Smears, and send outs (flow, cytogenetics) BONE MARROW DIAGNOSIS Bone marrow core, clot and aspirate smears: Normocellular marrow with trilineage hematopoiesis. Atypical lymphoid aggregates. See comment. LINCOLN/ 09/30/2023 COMMENT A&B. Immunohistochemistry ([id number]) supports the above diagnosis and non-contributory for diagnosis of non-Hodgkin or Hodgkin lymphoma. Biopsy of lymph node Is necessary to rule out lymphoma. Flow cytometric study from [facility] shows unable to evaluate B cell clonality due to nonspecific light chain binding on B cells. 23% of T cells show loss in CD7. No circulating blasts are detected. Granulocytes show left- shifted maturation and eosinophils are absolutely increased. Complete report is viewable in patient's EMR. Cytogenetic studies are pending. Case has been reviewed in consultation with Dr. Recinos who concurs with the above diagnosis. IDC:AM BONE MARROW STUDY Slides are reviewed. CBC DATE: 09/24/23 WBC 11.0; RBC 3.37; HGB 9.1; HCT 27.9; MCV 82.8; RDW 19.4; PLTS 67,000 SEGS 78.5%; LYMPHS 10.7%; MONOS 4.3%; EOS 2.4%; BASOS 0.8%, Immature granulocytes: 3.3% PERIPHERAL SMEAR: Submitted. RBC: Normocytic anemia. WBC: Neutrophilic left shift. The WBC count is compatible to as reported above. PLTS: Moderately decreased. BONE MARROW ASPIRATE DIFFERENTIAL: 200 cell count. Blasts % (normal 0-2): 0 Promyelocytes % (normal 1-5): 0 Myelocytes and metamyelocytes % (normal 17-41): 14 Bands and Segs % (normal 15-32): 39 Eos % (normal 1-6): 4 Basos % (normal 0-1): 0 Monocytes % (normal 0-4): 0 Erythroid Precursors % (normal 17-35): 29 Lymphocytes % (normal 7-13): 13 Plasma Cells % (normal 0-2): 1 ASPIRATE FINDINGS: Site: Not specified Aspicular, Cellular. Smears show mild hemodilution. M/E ratio: 2.0 (Normal 1.5-4.0) Megakaryocytes: Present and normal morphology. Erythropoiesis: Normoblastic. Granulopoiesis: Progressive and unremarkable. CORE BIOPSY FINDINGS: Site: Not specified Adequacy: Adequate Cellularity: 50% M/E ratio: Within normal limits. Megakaryocytes: Present and adequate in number. Bony trabeculae: Unremarkable. Granulomas: Absent. Lymphoid aggregate: Present. Atypical infiltrate: Present. Comment: Immunohistochemistry ([id number]) is negative for involvement by lymphoma. Lymphoid aggregates consist of lymphocytes and histiocytes. ASPIRATE CLOT FINDINGS: Site: Not specified Marrow particles: Numerous Cellularity: 50% M/E ratio: Within normal limits. Megakaryocytes: Present and adequate in number. Granulomas: Absent. Lymphoid aggregates: Present. Atypical infiltrates: Present. Comment: Immunohistochemistry ([id number]) is negative for involvement by lymphoma. Lymphoid aggregates consist of lymphocytes, histiocytes and eosinophils. SPECIAL STAINS WITH MATCHED CONTROLS: Iron: 1+, atypical or ring sideroblasts are not seen. Reticulin: No significant increase of reticulin fibers is noted. PAS: Highlights myeloid cells and megakaryocytes. BONE MARROW GROSS A - Received is a container labeled with the patient's name and designated Bone marrow core. The specimen consists of a piece of schaffer bone measuring 0.5cm in length and 0.1 cm in diameter. The specimen is totally submitted in one cassette after decalcification. B - Received labeled with the patient's name and designated Bone marrow clot is a specimen that consists of approximately 2 ml of bloody fluid that on filtration yields multiple minute fragments of blood clots measuring in aggregate 2.5 x 1.5 x 0.1 cm. The specimen is totally submitted in one cassette. C - Also received are 12 unstained and 1 peripheral stained slides. The unstained slides are submitted for appropriate staining. Also received are 1 green top tubes which are sent to our reference lab for cytogenetic studies . Tracie 09/24/23 TC:5 CPT: 19282, 65048, 61122 x2, 59509 x3, 36399
--- NOTE | 2023-09-24 | IMM_PTH ---
PATIENT: KIM PRINGLE LOC: [facility] U#:[id number] AGE/SX: 73/F ROOM: [facility] RE09/20/[address]: Dr. Lina Khan MD : 1950 BED: 1 DIS: 09/25/2023 SPEC #: [id number] RECD: 09/25/23 14:01 STATUS: SOUMatias REQ #: [id number] CAT: 09/24/23 00:[address]: Lina Khan DEPT: IMMUNOHISTOCHEMISTRY RECD BY: Kulwinder Pedroza ENTERED: 09/25/23 14:04 SP TYPE: IMMUNO OTHR DR: MD Dr. Maico Huitron MD Dr. Eric Jopperi, DO Dr. Elnora Spradling, MD Dr. Gabriele Pedicelli, MD Dr. Hannah Miedel, MD Dr. James Schuster, MD Dr. Lapman Lun, MD Dr. Mir Ali, MD Dr. Nicholas F Kotsonis, MD Dr. Olga Voroshilova, MD Dr. Paul Masci, DO Tissues: A - Bone marrow of iliac crest B - Bone marrow of iliac crest Procedures: CD138 (add) CD15 (add) CD20 (add) CD3 (add) CD30 (add) CD45 (add) CD5 (add) CD79A (add) KAPPA (add) LAMBDA (add) KI-67 (initial) PHYSICIAN & INSTITUTION [address] [place] [address] SPECIMEN INFORMATION: Tissue Source: A- Bone marrow core, B- Bone marrow clot Clinical Info: Anemia, suspected lymphoproliferative disorders Specimen Number: [id number] A&B CPT code: 94553e5, [id number] METHODOLOGY: Deparaffinized sections of prefer/formalin-fixed tissue or PAP/DQ stained slides are incubated with monoclonal/polyclonal antibodies/oligonucleotide probes. Localization is made via biotin free immunoperoxidase method. Appropriate controls are performed and reacted as expected. Results on target cell population are indicated in the following table: RESULTS: ANTIBODY / CLONE RESULT Block A CD3 (PS1) positive CD5 (SP10) positive CD20 (L26) positive CD45 (RP2/18) positive CD79a (11E3) positive CD138 (B-A38) positive Rumson (polyclonal) positive Lambda (polyclonal) positive CD15 (MMA) negative CD30 (Wild-H2) negative Ki-67 (30-9) positive, Moderate Block B CD3 (PS1) positive CD5 (SP10) positive CD20 (L26) positive CD45 (RP2/18) positive CD79a (11E3) positive CD138 (B-A38) positive Rumson (polyclonal) positive Lambda (polyclonal) positive CD15 (MMA) negative CD30 (Wild-H2) negative Ki-67 (30-9) positive, moderate These tests were developed and their performance characteristics determined by [facility]. They may not have been cleared or approved by the U.S. Food and Drug Administration. The FDA has determined that such clearance or approval is not necessary. The above immunohistochemical/dualISH markers are ordered and reviewed by the Pathologist. INTERPRETATION: A. Bone marrow core: Atypical lymphoid aggregates. B. Bone marrow clot: Atypical lymphoid aggregates. SJ/mr 09/30/23 Comment: IHC profile is noncontributory for lymphoma. Case has been reviewed in consultation with Dr. Recinos who concurs with the above diagnosis. IDC:[email or web address]
[2023-09-24] MEDS: Levothyroxine 50 MCG Tablet PO (05:40)
[2023-09-24 06:22] LABS: Absolute Lymphocyte Count 1.18 X10^3/uL (0.83-4.51); Absolute Neutrophil Count 8.7 X10^3/uL (2.0-7.7); Basophil# 0.09 X10^3/uL; Basophil% 0.8 % (0-1); Eosinophil# 0.26 X10^3/uL; Eosinophils% 2.4 % (0-5); Hematocrit 27.9 % (37-47); Hemoglobin 9.1 g/dL (12.0-15.0); Lymphocyte # 1.18 X10^3/ul (0.83-4.51); Lymphocyte % 10.7 % (19-41); Mean Corp Hgb Conc 32.6 g/dL (32-36); Mean Corpuscular Volume 82.8 fL (81-99); Monocyte# 0.47 X10^3/uL; Monocyte% 4.3 % (0-10); NRBC Flagged by Analyzer 0 % (0-5); Neutrophil # 8.68 X10^3/uL (2.7-7.7); Neutrophil % 78.5 % (47-70); POSITIVE COUNT YES; POSITIVE MORPHOLOGY YES; Platelet Count 67 K/mm3 (150-450); RBC Distribution Width CV 19.4 % (11.6-14.6); RBC Distribution Width SD 53.1 fl (35.1-43.9); Red Blood Count 3.37 M/mm3 (4.2-5.4)
[2023-09-24 06:47] LABS: Differential Indicated SCAN CRITERIA MET
[2023-09-24 06:54] LABS: Anion Gap 11 (5-15); BUN 51 mg/dL (7-18); BUN/Creat Ratio 27.6 RATIO (10-20); Calcium,Total 10.5 mg/dL (8.5-10.1); Chloride 104 mmol/L (98-107); Creatinine, Serum 1.85 mg/dL (0.55-1.02); EST Glomerular Filtration Rate 28 mL/min (>60); Est Glom Filt Rate - Afr Amer 34 mL/min (>60); Estimated Creatinine Clearance 24.98 ml/min; Glucose 93 mg/dL (74-106); Sodium Level 140 mmol/L (136-145)
[2023-09-24] MEDS: 0.9% Normal Saline (500mL Bag) 500 ML 999 ML IV (08:48)
[2023-09-24 09:05] LABS: Differential Comment SCANNED; Platelet Estimate MKD DEC (ADEQ); Reactive Lymphocyte 1+
[2023-09-24] MEDS: 0.9% Normal Saline (1000mL) 1,000 ML 150 ML IV ×2 (09:25→17:13)
--- NOTE | 2023-09-24 09:43 | PCM.PROGNOTE ---
Subjective Subjective Patient seen and examined. She said she felt a bit better today. She denied any fever, chillls, cough, chest pain, palpitations, dizziness, nausea, vomiting or diarrhea. Review of systems is otherwise negative. Oncology requested transfer to a tertiary facility, but this was unsuccessful as it was felt she could get the bone marrow biopsy here in [facility]. Objective Data Objective Data Vital Signs: Vital Signs Temp Pulse Resp BP Pulse Ox O2 Del Method O2 Flow Rate 97.9 F 91 15 116/64 97 Nasal Cannula 2 09/24/23 08:53 09/24/23 08:53 09/24/23 08:53 09/24/23 08:53 09/24/23 08:53 09/24/23 08:53 09/24/23 08:53 Oxygen Flow Rate (L/min) 2 Oxygen Delivery Method Nasal Cannula Weight: 138 lb Body Mass Index (BMI) 22.2 Intake & Output: Intake and Output for Last 24 Hours 09/22/23 09/23/23 09/24/23 23:59 23:59 23:59 Intake Total 928.6667 / 928.6667 1220 / 1220 500 / 500 Balance 928.6667 / 928.6667 1220 / 1220 500 / 500 Lab / Micro Data 09/24/23 05:40 09/24/23 05:40 Labs: Laboratory Results - last 24 hr 09/20/23 12:52: Diff Path Review Reviewed 09/21/23 06:40: Diff Path Review Reviewed 09/22/23 05:26: Diff Path Review Reviewed 09/24/23 05:40: WBC 11.0, RBC 3.37 L, Hgb 9.1 L, Hct 27.9 L, MCV 82.8, MCH 27.0, MCHC 32.6, RDW Std Deviation 53.1 H, RDW Coeff of Alex 19.4 H, Plt Count 67 L, MPV 10.0, Immature Gran % (Auto) 3.300 H, Neut % (Auto) 78.5 H, Lymph % (Auto) 10.7 L, Faulkner % (Auto) 4.3, Eos % (Auto) 2.4, Baso % (Auto) 0.8, Absolute Neuts (auto) 8.7 H, Absolute Lymphs (auto) 1.18, Nucleated RBC % 0, Differential Comment SCANNED, Reactive Lymphocytes 1+, Platelet Estimate MKD DEC, Sodium 140, Potassium 4.0, Chloride 104, Carbon Dioxide 25.0, Anion Gap 11, BUN 51 H, Creatinine 1.85 H, Estim Creat Clear Calc 24.98, Est GFR (MDRD) Af Amer 34 L, Est GFR (MDRD) Non-Af 28 L, BUN/Creatinine Ratio 27.6 H, Glucose 93, Calcium 10.5 H Micro: Microbiology 09/20/23 13:52 Stool Stool Occult Blood ([place]) - Final 09/20/23 12:12 Mucosa - Nose SARS-CoV-2, Influenza & RSV (PCR) - Final Physical Exam Const alert, oriented x3 and no apparent distress Constitutional Narrative: frail HEENT normocephalic, head/scalp atraumatic, moist oral mucous membranes and oropharynx normal Eyes PERRL and EOMs intact bilaterally Neck no lymphadenopathy, supple and no JVD Lymph Lymphatic: no lymphedema noted Lymphatic Narrative: palpable, nontender axillary lymphadenopathy Resp normal respiratory effort, normal air movement, no retractions and clear to auscultation bilaterally Cardio regular rate, regular rhythm, S1 normal heart sound, S2 normal heart sound and no murmurs GI normal to inspection, nondistended, normoactive bowel sounds, soft to palpation, non-tender and non-distended Extremity normal to inspection, normal capillary refill, no clubbing, cyanosis or edema and no calf tenderness General Extremity: no tenderness to palpation of joints or extremities Skin General Skin Exam: no breakdown Neuro CN's II-XII intact bilaterally, no focal motor deficits, no sensory deficits noted and deep tendon reflexes 2+ bilaterally Sensorium / Orientation: awake and alert Motor Exam: strength 5/5 throughout and general weakness Psych thought process normal, cooperative and affect normal Appearance: appropriate Assessment & Plan Assessment/Plan (1) Generalized weakness: (2) Anemia: (3) UTI (urinary tract infection): PLAN: Plan #Acute on chronic anemia In the setting of hepatosplenomegaly with hypercalcemia. Hemoglobin today is 9.1. Has received blood transfusion during this admission. Iron studies are normal vitamin B12 is also normal. She did have serum protein electrophoresis with immunofixation during a previous admission and M spike was normal with an IgM spike which was thought to be related to UTI. Discussed with oncology. Plan is for patient to be transferred to tertiary facility for bone marrow biopsy due to concern about lymphoproliferative disorder. Patient however not accepted at tertiary facility. oncology saw patient today' bone marrow biopsy ordered. LDH, INR nad PTT also ordered. If patient is unable to have bone marrow biopsy today, to consult gen surg for lymph node biopsy tomorrow. #Lymphoproliferative disorder has axillary lymphadenopathy. CT abdomen also showed retroperitoneal lymphadenopathy bne marrow biopsy as ordered above. oncology on board. #Chronic hypoxic respiratory failure On 2 L of oxygen. Also has a left pleural effusion. Received a dose of Lasix on admission. Pleural effusion is noted to be significant and so we will monitor and if it worsens will order thoracentesis. #JUSTA: Creatinine is further up to 1.85 today. Baseline is around 0.96 from time of admission. In light of her hypercalcemia, this may be what is preventing the kidney function from improving. will hydrate with IVF today. nephrology also consulted in light of hypercalcemia of 10.5 today, though this could all be related to the lymphoproliferative disorder #Hypothyroidism: On Synthroid DVT prophylaxis: Heparin. Disposition: Awaiting transfer to tertiary facility for bone marrow biopsy. Charges/Coding Visit Charges Inpatient E&M: 02944 Subs Hosp L2
[2023-09-24 10:21] LABS: LDH 271 U/L (84-246)
[2023-09-24 10:25] LABS: International Normalized Ratio 1.3; Prothrombin Time (Protime)PT. 15.9 SECONDS (11.7-14.9)
[2023-09-24 10:26] LABS: Partial Thromboplast Time 31.4 Seconds (24.1-36.2)
--- NOTE | 2023-09-24 11:05 | US_ITS ---
PROCEDURE: RENAL ULTRASOUND - COMPLETE REASON FOR EXAM: Female, 73 years old. Acute kidney injury. TECHNIQUE: Ultrasound evaluation of the bilateral kidneys was performed with real-time ultrasonography and static grayscale imaging. COMPARISON: CT scan of the abdomen and pelvis of 09/13/2023 FINDINGS: RIGHT KIDNEY: Normal location of the right kidney which is normal in size. The right kidney measures 9.7 x 4.7 x 4.2 cm. There is a normal cortex of the right kidney. The renal cortex measures 1.3 cm. There is a cyst in the upper pole of the right kidney measuring about 1.7 cm. There are no right renal calculi. There is no right hydronephrosis. DISTAL RIGHT URETER: There is non-visualization of the distal right ureter. There is no demonstrated right ureterovesical junction calculus. There is a visualized right ureteral jet. LEFT KIDNEY: Normal location of the left kidney which is normal in size. The left kidney measures 10.5 x 4.8 x 3.8 cm. There is a normal cortex of the left kidney. The renal cortex measures 1.1 cm. There is no left renal mass or cyst. There are no left renal calculi. There is no left hydronephrosis. DISTAL LEFT URETER: There is non-visualization of the distal left ureter. There is no demonstrated left ureterovesical junction calculus. There is a visualized left ureteral jet. BLADDER: The distended urinary bladder has a volume of 206 ml. There is a normal wall thickness of the distended urinary bladder. There is no demonstrated mass within the urinary bladder. There is no demonstrated bladder calculi. Incidentally noted is markedly enlarged spleen measuring about 24 cm in length. There is mild free fluid superior to the bladder. US/Kidney and Bladder IMPRESSION: 1. No evidence of hydronephrosis. 2. Small right renal cyst. 3. Severe splenomegaly. 4. Mild free fluid in the pelvis. Electronically Signed: Rolando Clark MD at 15:52 EDT ,
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
[2023-09-24] MEDS: 0.9% Normal Saline (250mL Bag) 250 ML 15 ML IV (11:36)
[2023-09-24] MEDS: Midazolam 2 MG/2 ML Syringe IV (11:37)
[2023-09-24] MEDS: fentaNYL 100 MCG/2 ML Ampul IV (11:40)
[2023-09-24] MEDS: Lidocaine 2% (20 ml mdv) 20 ML Vial INFILT (11:48)
--- NOTE | 2023-09-24 12:04 | PRO.PCM_ITS ---
Procedure Report Date of Procedure: 09/24/23 Assessment & Plan Assessment/Plan (1) Anemia: QUALIFIERS: Anemia type: unspecified type Qualified Code(s): D64.9 - Anemia, unspecified PLAN: PROCEDURE: CT guided bone marrow biopsy and aspiration of the right iliac bone ORDERING PROVIDER: Dr. Khan INDICATION: Female, 73 years old. Anemia. PROVIDER: Soraya Melvin [employer]OWDER MILL OPERATOR-KINESIOTHERAPIST RADIATION DOSAGE (If Supplied By Facility): CTDIvol = 17.83 mGy, DLP = 245.26 mGycm. Individualized dose optimization techniques were utilized. CONSENT: The risks, benefits, and alternatives to the procedure were explained to the patient. The specific risk of hemorrhage requiring further treatment or intervention was detailed and accepted. Follow-up instructions were discussed with the patient as well. Written informed consent was obtained. PRE-PROCEDURE SEDATION ASSESSMENT: Current history and physical dictated by referring physician and reviewed. No clinical changes since date of exam. Patient has an ASA Class of 2. PROCEDURAL SEDATION PROTOCOL: The Drugs used were: 2 mg Versed, IV, and 50 mcg Fentanyl, IV. The sedation time was: 20 minutes, starting at 1137 and terminated at 1157. The procedural sedation protocol was independently monitored by the department nurse. TECHNIQUE The patient was brought into the CT suite and placed in the prone position. An appropriate entry site was identified. The overlying skin was prepped and draped in the usual sterile fashion. 2% lidocaine was administered subcutaneously for local anesthesia. Under CT guidance, a bone marrow biopsy and bone marrow aspirate were performed of the right using an 11-gauge bone marrow biopsy kit. Hematology staff was present to prepare the specimen slides and transport the specimen to the laboratory for analysis. Hemostasis was obtained, and a sterile occlusive dressing was applied. The patient tolerated the procedure well without immediate complications. IMPRESSION: Successful CT guided bone marrow biopsy and aspiration of the right iliac bone as described. Procedural Sedation protocol utilized with independent monitoring by the department nurse. Procedures Radiology Radiology CT Procedures: 36141 Biopsy Bone Marrow
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
--- NOTE | 2023-09-24 16:52 | CASEMGMT ---
Social Work Pt does have healthcare POA document on file in [employer]/Living Will provision initialed. Her Tomas is listed as healthcare POA. ALVARO Arciniega
[2023-09-24] MEDS: Ensure Plus High Protein 120 ML LIQUID PO (17:10)
[2023-09-24 18:42] LABS: Urine Sodium < 5 mmol/L (Not Establ.)
[2023-09-25] MEDS: 0.9% Normal Saline (1000mL) 1,000 ML 150 ML IV ×2 (00:21→07:30)
[2023-09-25 01:00] VITALS: BP 116/62; PULSE 87; RESP 18; TEMP 36.6; O2SAT 98
[2023-09-25 05:00] VITALS: BP 120/64; PULSE 90; RESP 18; TEMP 36.7; O2SAT 98
[2023-09-25 07:01] LABS: Absolute Lymphocyte Count 1.02 X10^3/uL (0.83-4.51); Absolute Neutrophil Count 7.6 X10^3/uL (2.0-7.7); Basophil# 0.07 X10^3/uL; Basophil% 0.7 % (0-1); Eosinophil# 0.27 X10^3/uL; Eosinophils% 2.8 % (0-5); Hemoglobin 9.1 g/dL (12.0-15.0); Lymphocyte # 1.02 X10^3/ul (0.83-4.51); Lymphocyte % 10.6 % (19-41); Mean Corp Hgb Conc 32.5 g/dL (32-36); Mean Corpuscular Hgb 27.2 pg (27.0-32.0); Mean Corpuscular Volume 83.8 fL (81-99); Mean Platelet Vol. 10.5 fl (6.2-12.0); Monocyte# 0.46 X10^3/uL; Monocyte% 4.8 % (0-10); NRBC Flagged by Analyzer 0 % (0-5); Neutrophil # 7.55 X10^3/uL (2.7-7.7); Neutrophil % 78.7 % (47-70); POSITIVE COUNT YES; POSITIVE MORPHOLOGY YES; Platelet Count 56 K/mm3 (150-450); RBC Distribution Width CV 19.9 % (11.6-14.6); RBC Distribution Width SD 53.3 fl (35.1-43.9); Red Blood Count 3.34 M/mm3 (4.2-5.4); White Blood Count 9.6 K/mm3 (4.4-11.0)
[2023-09-25 07:25] LABS: Differential Indicated SCAN CRITERIA MET
[2023-09-25 07:39] LABS: Anion Gap 6 (5-15); BUN 47 mg/dL (7-18); BUN/Creat Ratio 29.9 RATIO (10-20); Calcium,Total 9.9 mg/dL (8.5-10.1); Chloride 108 mmol/L (98-107); Creatinine, Serum 1.57 mg/dL (0.55-1.02); EST Glomerular Filtration Rate 34 mL/min (>60); Est Glom Filt Rate - Afr Amer 41 mL/min (>60); Estimated Creatinine Clearance 29.43 ml/min; Glucose 95 mg/dL (74-106); Potassium 3.8 mmol/L (3.5-5.1); Sodium Level 136 mmol/L (136-145)
[2023-09-25] MEDS: Levothyroxine 50 MCG Tablet PO (07:50)
[2023-09-25 08:17] LABS: Atypical Lymphocyte 1+ %; Other WBC Type 1.02 %; Platelet Estimate MKD DEC (ADEQ); Polychromasia 1.02
[2023-09-25 08:43] VITALS: BP 105/53; PULSE 91; RESP 18; TEMP 36.4; O2SAT 95
[2023-09-25 10:45] VITALS: BP 124/64; PULSE 95; RESP 15; TEMP 36.5; O2SAT 95
--- NOTE | 2023-09-25 11:04 | NURSING ---
Placed call to Dr Hurst's office to see when he might round on patient. The clerical receptionist stated that she spoke with the nurse and did not have a time when he would be rounding in the hospital, and could not give an estimate at this time. Notified the family at bedside.
--- NOTE | 2023-09-25 12:27 | PN_ITS ---
Subjective Subjective Patient seen and examined. Her son was by her bedside. She had no active complaints. She did states she feels a bit weaker today. She did have bone marrow biopsy done yesterday. Review of systems otherwise negative. Objective Data Objective Data Vital Signs: Vital Signs Temp Pulse Resp BP Pulse Ox O2 Del Method O2 Flow Rate 97.6 F L 91 18 105/53 L 95 Nasal Cannula 2 09/25/23 08:43 09/25/23 08:43 09/25/23 08:43 09/25/23 08:43 09/25/23 08:43 09/25/23 08:43 09/25/23 08:43 Oxygen Flow Rate (L/min) 2 Oxygen Delivery Method Nasal Cannula Weight: 138 lb Body Mass Index (BMI) 22.2 Intake & Output: Intake and Output for Last 24 Hours 09/23/23 09/24/23 09/25/23 23:59 23:59 23:59 Intake Total 1220 / 1220 2595 / 2595 1000 / 1000 Output Total 600 / 600 Balance 1220 / 1220 2595 / 2195 400 / 400 Medical Nutrition Assessment Dietitian: Malnutrition Criteria Met Start: 09/24/23 16:40 Freq: Status: Active Protocol: Document 09/24/23 16:40 SLA (Rec: 09/24/23 16:40 SLA Desktop) Nutrition Malnutrition Evidence of Malnutrition Exists Yes Malnutrition (severe): Acute Illness/Injury Evidenced By Suboptimal Energy Intake ( Severe),Weight Loss (Severe) Clinical Problem Acute Disease or Injury Related Malnutrition Etiology related to pt being too tired to eat and inadequate energy intake Signs/Symptoms as evidenced by 5.1% unintended wt loss and po intake meeting less than 75% of est nutritional needs x 2 wks Status Active Problem Recommendation Dietitian Recommendations/Changes Will continue liberal regular diet Will order Ensure Plus High Protein 4x/day w/ medpass (4 oz -not strawberry) Lab / Micro Data 09/25/23 06:25 09/25/23 06:25 Labs: Laboratory Results - last 24 hr 09/24/23 16:25: Ur Random Sodium < 5, Urine Creatinine 88.40 09/25/23 06:25: WBC 9.6, RBC 3.34 L, Hgb 9.1 L, Hct 28.0 L, MCV 83.8, MCH 27.2, MCHC 32.5, RDW Std Deviation 53.3 H, RDW Coeff of Alex 19.9 H, Plt Count 56 L, MPV 10.5, Immature Gran % (Auto) 2.400 H, Neut % (Auto) 78.7 H, Lymph % (Auto) 10.6 L, Williams % (Auto) 4.8, Eos % (Auto) 2.8, Baso % (Auto) 0.7, Absolute Neuts (auto) 7.6, Absolute Lymphs (auto) 1.02, Other Cells % 1.02, Nucleated RBC % 0, Atypical Lymphocytes 1+, Platelet Estimate MKD DEC, Polychromasia 1.02, Sodium 136, Potassium 3.8, Chloride 108 H, Carbon Dioxide 22.0, Anion Gap 6, BUN 47 H, Creatinine 1.57 H, Estim Creat Clear Calc 29.43, Est GFR (MDRD) Af Amer 41 L, Est GFR (MDRD) Non-Af 34 L, BUN/Creatinine Ratio 29.9 H, Glucose 95, Calcium 9.9 Micro: Microbiology 09/20/23 13:52 Stool Stool Occult Blood ([facility]) - Final 09/20/23 12:12 Mucosa - Nose SARS-CoV-2, Influenza & RSV (PCR) - Final Radiography Diagnostic Testing: Radiology Impression Renal Ultrasound 09/24/23 11:05 IMPRESSION: 1. No evidence of hydronephrosis. 2. Small right renal cyst. 3. Severe splenomegaly. 4. Mild free fluid in the pelvis. Electronically Signed: Rolando Clark MD at 15:52 EDT , Physical Exam Const alert, oriented x3 and no apparent distress Constitutional Narrative: frail HEENT normocephalic, head/scalp atraumatic, moist oral mucous membranes and oropharynx normal Eyes PERRL and EOMs intact bilaterally Neck no lymphadenopathy, supple and no JVD Lymph Lymphatic: no lymphedema noted Lymphatic Narrative: palpable, nontender axillary lymphadenopathy Resp normal respiratory effort, normal air movement, no retractions and clear to auscultation bilaterally Resp Narrative: mildly diminished breath sounds bibasally, no wheezes or crackles. on 2L of oxygen via nasal canula Cardio regular rate, regular rhythm, S1 normal heart sound, S2 normal heart sound and no murmurs GI normal to inspection, nondistended, normoactive bowel sounds, soft to palpation, non-tender and non-distended Extremity normal to inspection, normal capillary refill, no clubbing, cyanosis or edema and no calf tenderness General Extremity: no tenderness to palpation of joints or extremities Skin General Skin Exam: no breakdown Neuro CN's II-XII intact bilaterally, no focal motor deficits, no sensory deficits noted and deep tendon reflexes 2+ bilaterally Sensorium / Orientation: awake and alert Motor Exam: strength 5/5 throughout and general weakness Psych thought process normal, cooperative and affect normal Appearance: appropriate Assessment & Plan Assessment/Plan (1) Generalized weakness: (2) Anemia: QUALIFIERS: Anemia type: unspecified type Qualified Code(s): D64.9 - Anemia, unspecified (3) UTI (urinary tract infection): PLAN: Plan #Acute on chronic anemia * In the setting of hepatosplenomegaly with hypercalcemia. * Hemoglobin today remains 9.1. Has received blood transfusion during this admission. Iron studies are normal vitamin B12 is also normal. She did have serum protein electrophoresis with immunofixation during a previous admission and M spike was normal with an IgM spike which was thought to be related to UTI. * Discussed with oncology. Plan is for patient to be transferred to tertiary facility for bone marrow biopsy due to concern about lymphoproliferative disorder. Patient however not accepted at tertiary facility. * had bone marrow biopsy yesterday * INR was 1.3 and PT as mildly elevated at 15.9; APTT was 31.4. * #Lymphoproliferative disorder * has axillary lymphadenopathy. * CT abdomen also showed retroperitoneal lymphadenopathy * bne marrow biopsy done yesterday. Results pending. * oncology on board. * #Chronic hypoxic respiratory failure * On 2 L of oxygen. Also has a left pleural effusion. Received a dose of Lasix on admission. #JUSTA: * Creatinine is down to 1.57 today from 1.85 yesterday. Baseline is around 0.96 from time of admission. * In light of her hypercalcemia, this may be what is preventing the kidney function from improving. * being hydrated with iVF * nephrology on board. Renal USG ordered by nephro showed no evidence of hydronephrosis and severe splenomegaly as well as mild free fluid in the pelvis and small right renal cysts. * #Hypothyroidism: On Synthroid DVT prophylaxis: Heparin. Disposition: await dc to her son's home with home health care. Charges/Coding Visit Charges Inpatient E&M: 35391 Subs Hosp L2
--- NOTE | 2023-09-25 12:30 | CASEMGMT ---
ROSELYN LIRA to speak with patient's children regarding discharge planning. Family voices concerns that patient is declining and would like to discuss hospice at home. ROSELYN LIRA infomed family of process for setting up hospice at discharge. Family states they would like to speak with hospitalist and have conversation with patient. Family had no further questions or concerns. ROSELYN LIRA updated hospitalist regarding conversation with family. CM will continue to follow this patient and plan for a safe discharge.
--- NOTE | 2023-09-25 15:05 | NURSING ---
Pt is able to answer questions appropriately but remains with eyes closed during conversation and does not participate unless asked repeatedly. Family of the patient states that they would like to pursue hospice at this time, due to the visible decline. Notified Dr Khan of the the patient's status as well as the families wish to pursue hospice.
[2023-09-25] MEDS: Acetaminophen 325 MG Tablet 650 MG PO (15:51)
[2023-09-25 19:55] VITALS: BP 102/53; PULSE 89; RESP 16; TEMP 36.2; O2SAT 93
--- NOTE | 2023-09-25 20:27 | CASEMGMT ---
Social Work This ad writer apprised by nursing staff, and by manager stars Madyson Coleman of family's discussion about potential home with hospice for this patient. This ad writer aware that hospice was broached with the family over the weekend versus seeking treatment. Met with patient, patient's who is the patient's primary power of employment attorney for healthcare, and two of patient's daughters. There were several other visitors initially but stepped out of the room to allow for private conversation. Patient laying in bed appearing to sleep, which the family reports is a significant change now the patient looks and has been functioning. Family reports perception that the patient is declining rapidly. This ad writer sat by the patient at patient's bedside. Family remained present in the room but client respectful to allow patient's engagement in conversation. Family actually asked this ad writer to speak with the patient and get patient's wishes. Patient did appear tired though opened her eyes and acknowledged this ad writer and indicated by nodding her head yes that was up for conversation. This ad writer explored with patient, patient's goals of care. Patient indicated being tired, and that she does not desire aggressive treatment such as she would not desire having to do PT and OT at this time. Patient indicated that would like to be at home and would like to be comfortable. This ad writer broached hospice care with the patient, and this level of care could help support the patient being at home with the goal of comfort in quality of life in mind. Patient nodded her head yes several times about the idea of hospice. This patient clearly indicated when this ad writer circled back around, that is not interested in aggressive care or doing things such as therapy. Family present in the room supportive of comfort care and expressed desire to help care for the patient at home. Family tearful reporting this is such a significant change for the patient, that patient was functionally well around [place] time. Emotional support offered. Explored whether family had any type of preference about which hospice would be called. One of the daughters reported had been [facility] contact [facility] and was happy though responses and communication with [facility]. The other daughter and the patient's did not have any type of preference nor any history with other hospice agencies. Explained this ad writer needed to speak with the doctor and see if the doctor would agree for a hospice referral. Family reports patient has a hospital bed and oxygen at home already. Would like to have an ambulance to transport. Spoke with Dr. Khan regarding this ad writer's conversation and patient's expressing interest in hospice care. Order given to consult hospice. This ad writer called [facility] hospice and spoke with Geetha in admissions, requesting a hospice nurse see the patient yet today, as the family would really like to get the patient home as soon as possible. Fax clinical information to confirmed fax number. This ad writer received phone call from Lore Quinones, clinical investment manager who reports a hospice nurse will see the patient and family between 1700 and 1800 today. Plan: pending outcome of hospice referral. -ALVARO Guzman, VICE ADMIRAL *This note was generated with [employer] dictation software. It may contain incorrect words, spelling, and punctuation that were not noted in review of the chart prior to signing*
--- NOTE | 2023-09-26 08:02 | DS.PCM_ITS ---
Providers Date of Admission: 09/20/23 Date of Discharge: 09/25/23 Primary Care Physician: Dr. Keisha Paniagua MD Consultations 09/24/23 08:09 Consult: Oncology/Hematology Routine Consulting Provider: CCAlan Hem/Onc Mu Reason for Consult: lymphoma EMERGENT Consult: No Notified: Yes Date Notified: 09/24/23 Time Notified: 08:09 Method of Notification: Verbal Comments:: Dr. Hurst aware 09/24/23 09:38 Consult: Nephrology Routine Consulting Provider: Miladys Chun Reason for Consult: JUSTA EMERGENT Consult: No Notified: Yes Date Notified: 09/24/23 Time Notified: 09:39 Method of Notification: Answering Service 09/24/23 09:41 Consult: Interventional Radiology Routine Consulting Provider: Rich Salgado Reason for Consult: for bone marrow biopsy EMERGENT Consult: No Notified: Yes Date Notified: 09/24/23 Time Notified: 09:41 Method of Notification: Verbal Reason For Visit: ANEMIA, HYPOTENISION, WEAKNESS Diagnosis Discharge Diagnosis (1) Acute kidney injury: Status: Acute Code(s): N17.9 - Acute kidney failure, unspecified Plan #Acute on chronic anemia * In the setting of hepatosplenomegaly with hypercalcemia. * Hemoglobin today remains 9.1. Has received blood transfusion during this admission. Iron studies are normal vitamin B12 is also normal. She did have serum protein electrophoresis with immunofixation during a previous admission and M spike was normal with an IgM spike which was thought to be related to UTI. * Discussed with oncology. Plan is for patient to be transferred to tertiary facility for bone marrow biopsy due to concern about lymphoproliferative disorder. Patient however not accepted at tertiary facility. * had bone marrow biopsy yesterday * INR was 1.3 and PT as mildly elevated at 15.9; APTT was 31.4. * #Lymphoproliferative disorder * has axillary lymphadenopathy. * CT abdomen also showed retroperitoneal lymphadenopathy * bne marrow biopsy done yesterday. Results pending. * oncology on board. * #Chronic hypoxic respiratory failure * On 2 L of oxygen. Also has a left pleural effusion. Received a dose of Lasix on admission. #JUSTA: * Creatinine is down to 1.57 today from 1.85 yesterday. Baseline is around 0.96 from time of admission. * In light of her hypercalcemia, this may be what is preventing the kidney function from improving. * being hydrated with iVF * nephrology on board. Renal USG ordered by nephro showed no evidence of hydronephrosis and severe splenomegaly as well as mild free fluid in the pelvis and small right renal cysts. * #Hypothyroidism: On Synthroid DVT prophylaxis: Heparin. Disposition: await dc to her son's home with home health care. Medications at Discharge Home Medications NK 09/20/23 Hospital Course Operations None Procedures - (bone marrow biopsy) Summary of Care Provided Minutes Spent on Discharge: 55 Hospital Course: Patient is a 73-year-old female with a past medical history as outlined was admitted through the ED on 09/20/2023 with a complaint of weakness. She was also hypoxic. She had recently been discharged to a [facility] facility after being admitted on 11 September for hypoxia and weakness. She was also hypothyroid at that time and was started on Synthroid. She had had an abnormal serum protein electrophoresis which showed elevated IgM. She had been discharged to a [facility] facility but family was concerned about the care that so they took her home where she felt much weaker and lethargic so she was brought to the ED for this admission. On admission she was noted to be anemic with hemoglobin of 6.7. She was therefore transfused 1 unit of packed red blood cells. Stool f or occult blood and was negative. She was therefore admitted and managed for acute on chronic anemia. Stool for occult blood is stated was negative. She was transfused with 1 unit of packed red blood cells. Patient was noted to have bilateral axillary lymphadenopathy. She did have CT of the abdomen done which showed retroperitoneal lymphadenopathy as well. There was concern for a lymphoproliferative disorder. Oncology initially recommended patient be transferred for bone marrow biopsy. However transfer was unsuccessful so patient had bone marrow biopsy done in [facility]. While awaiting the results of this, patient and family decided to opt for hospice care as patient said no matter the diagnosis she did not want to have any form of treatment. Hospice was therefore consulted. Patient and family signed with hospice. She was therefore discharged home with home hospice on 09/25/2023. She is follow-up with her primary care doctor within 1 to 2 weeks. Patient seen and examined. Close very frail and weak. She had no active complaints. Review of systems otherwise negative. Labs and vitals reviewed. Home meds reviewed and reconciled. Physical Exam Const alert, oriented x3 and no apparent distress Constitutional Narrative: frail General Appearance: cooperative and comfortable Orientation / Consciousness: awake HEENT normocephalic, head/scalp atraumatic, hearing grossly normal bilaterally, moist oral mucous membranes and oropharynx normal HEENT Narrative: very frail and weak Mouth: oral and palatal mucosa normal Eyes PERRL and EOMs intact bilaterally Neck no lymphadenopathy, supple and no JVD Lymph Lymphatic: no lymphadenopathy noted and no lymphedema noted Lymphatic Narrative: palpable, nontender axillary lymphadenopathy Resp normal respiratory effort, normal air movement, no retractions and clear to auscultation bilaterally Resp Narrative: mildly diminished breath sounds bibasally, no wheezes or crackles. on 2L of oxygen via nasal canula Cardio regular rate, regular rhythm, S1 normal heart sound, S2 normal heart sound and no murmurs GI normal to inspection, nondistended, normoactive bowel sounds, soft to palpation, non-tender and non-distended Extremity normal to inspection, normal capillary refill, no clubbing, cyanosis or edema and no calf tenderness General Extremity: no tenderness to palpation of joints or extremities Skin General Skin Exam: no breakdown Neuro CN's II-XII intact bilaterally, no focal motor deficits, no sensory deficits noted and deep tendon reflexes 2+ bilaterally Sensorium / Orientation: awake and alert Motor Exam: strength 5/5 throughout and general weakness Psych thought process normal, cooperative and affect normal Appearance: appropriate Weight / BMI Weight Weight: 138 lb Body Mass Index (BMI) 22.2 ABG / Lab / Microbiology Data 09/25/23 06:25 09/25/23 06:25 Laboratory: Laboratory Results - last 24 hr 09/25/23 06:25: Other Cells % 1.02, Atypical Lymphocytes 1+, Platelet Estimate MKD DEC, Polychromasia 1.02 Microbiology: Microbiology 09/20/23 13:52 Stool Stool Occult Blood ([facility]) - Final 09/20/23 12:12 Mucosa - Nose SARS-CoV-2, Influenza & RSV (PCR) - Final Meaningful Use Info Meaningful Use Diagnoses (Choose all that apply): None applicable Discharge Plan Admission Admit Date/Time: 09/20/23 15:00 Primary Reason for Your Visit: weakness, anemia Attending Provider: Lina Khan Primary Care Provider: Keisha Paniagua Consulting Providers: Yan Singh; Cedric Reynoso; Rich Salgado; Miladys Chun; Helio Singh; Maico Miller; Kayce Lanier; Elmo Patel; Westley Smith; Sylvester Thakur; Cornelio Hurst Instructions Patient Instructions: RAD RN Bone Marrow Aspiration and Biopsy, RAD RN Procedural Sedation Discharge Orders/Prescriptions Prescriptions: No Action NK Referrals / Follow Up: Keisha Paniagua MD [Primary Care Provider] - Disposition Disposition (needs filled in before D/C Order can be placed): Hospice in Home Charges/Coding Visit Charges Inpatient E&M: 58552 Disch Hosp >30min
[2023-10-18 19:46] LABS: Miscellaneous Lab Procedure SEE PATHOLOGY REPORT
[2023-10-18 19:47] LABS: Miscellaneous Lab Procedure 2 SEE PATHOLOGY REPORT
== END 2023-09-25 22:00 | disposition hospice, home (50) | DRG 840 ==
LOC: ED 14:00 → PCU 15:06
PROVIDERS: Family Medicine; Internal Medicine Nephrology; Nurse Practitioner; Emergency Provider Emergency Medicine; PCP Family Medicine; Visit Provider Student in an Organized Health Care Education/Training Program
DX: D47.9 Neoplasm of uncertain behavior of lymphoid, hematopoietic and related tissue, unspecified (principal); E43 Unspecified severe protein-calorie malnutrition; D61.82 Myelophthisis; N17.9 Acute kidney failure, unspecified; J96.11 Chronic respiratory failure with hypoxia; J90 Pleural effusion, not elsewhere classified; Z99.81 Dependence on supplemental oxygen; E03.9 Hypothyroidism, unspecified; E83.52 Hypercalcemia; D73.1 Hypersplenism; R53.81 Other malaise; Z66 Do not resuscitate; Z68.22 Body mass index [BMI] 22.0-22.9, adult; Z79.899 Other long term (current) drug therapy
CPT/HCPCS: 36415; 71045; 76770; 77012; 80048; 80053; 81001; 82274; 82570; 82746; 83605; 83615; 83690; 83880; 84300; 84443; 84484; 85014; 85018; 85025; 85610; 85730; 86850; 86900; 86901; 86920; 86922; 87631; 88305; 88311; 88313; 88341; 88342; 93005; 97162; 97166; 97530; 97535; 99156; 99284; J7030; J7040; J7050; P9016; A4216; J1940; J2430